=== PATIENT | female | born 1945 | race African-American/Black ===

== ENCOUNTER 2017-01-27 14:30 | Observation (INO) | payer MEDICARE, MEDICAID ==
--- NOTE | 2017-01-27 16:08 | HP ---
PRIMARY CARE PHYSICIAN: mAi Avelar M.D. REASON FOR ADMISSION: Nausea, vomiting, and gastric distention. HISTORY OF PRESENT ILLNESS: A 71-year-old female who went to [facility] with complaint of nausea and vomiting for the last 2 days. Her last bowel movement was yesterday. Patient was not ab le to keep anything down. She was feeling more abdominal pain in epigastric region. After food, her symptoms were getting worse. She was not trying to eat or drink because of fear of pain, nausea and vomiting. With these symptoms, she presented to [facility] where she had CT of the abdom en and pelvis which showed marked distention of stomach. The patient had routine blood tests done, w hich showed thrombocytopenia and patient clinically appeared dehydrated. Her urinalysis has also susanne wed urinary tract infection. This patient had similar type of presentation in our hospital. This pa tient already had upper endoscopy in 10/2016 which showed normal upper endoscopy. At that time, cassie ent had similar presentation and required NG tube for decompression of the stomach. At this point, w e are admitting this patient for further evaluation and treatment. ALLERGIES: No known drug allergies. CURRENT HOME MEDICATIONS: Colace 100 mg twice daily, Reglan 10 mg t.i.d. p.r.n., Protonix 40 mg p.o. daily, and MiraLax 17 grams p.o. daily. REVIEW OF SYSTEMS: The following complete review of systems was negative, unless otherwise mentioned in the HPI or below: Constitutional: Weight loss or gain, ability to conduct usual activities. Skin: Rash, itching. Eyes: Double vision, pain. ENT/Mouth: Nose bleeding, neck stiffness, pain, tenderness. Cardiovascular: Palpitations, dyspnea on exertion, orthopnea. Respiratory: Shortness of breath, wheezing, cough, hemoptysis, fever or night sweats. Gastrointestinal: Poor appetite, abdominal pain, heartburn, nausea, vomiting, constipation, or diarr hea. Genitourinary: Urgency, frequency, dysuria, nocturia. Musculoskeletal: Pain, swelling. Neurologic/Psychiatric: Anxiety, depression. Allergy/Immunologic: Skin rash, bleeding tendency. Please see my HPI for pertinent positive and negative. All other review of systems reviewed and nega tive except as mentioned in the HPI. PAST MEDICAL HISTORY: Scoliosis, gastroparesis, asthma. PAST SURGICAL HISTORY: Cholecystectomy and upper endoscopy. PAST PSYCHIATRIC HISTORY: The patient has underlying intellectual disability. SOCIAL HISTORY: Patient lives at home with her sister. No history of tobacco, alcohol or illicit dr ug abuse. Her sister is medical power of assistant attorney general. FAMILY HISTORY: No strong family history of premature coronary artery disease, stroke or cancer. EMERGENCY ROOM COURSE: Patient is given Rocephin 1 g, IV fluid 1 liter, and Zofran 4 mg at [facility]. PHYSICAL EXAMINATION: VITAL SIGNS: Currently, blood pressure 153/96, pulse 80, respiratory rate 18, temperature 98.5, satu ration 90% on room air, weight 40 kilograms. GENERAL: Patient is currently alert, awake, appears weak. No obvious acute distress. HEAD: Normocephalic, atraumatic. EYES: Pupils round and reactive to light. Extraocular muscle intact. ENT: Oropharynx within normal limits. Moist mucous membranes. No oral lesions. No pharyngeal eryt chelo, no exudates. NECK: Supple. Range of motion is normal. No meningeal signs of irritation. LUNGS: Clear to auscultation without any rhonchi or rales. CARDIAC: S1 and S2 regular. Systolic murmur present at parasternal area. No gallop, no rub. ABDOMEN: Patient does have mild epigastric discomfort, but no peritoneal sign, no Beckford sign, no gu arding, no rigidity, no rebound. No distention. Bowel sounds present. BACK: On examination, patient has severe kyphosis, but no point tenderness, no CVA tenderness. EXTREMITIES: Upper extremity passive movements of all joints are normal. Lower extremity, no edema. Good peripheral pulsation. SKIN: No skin rash. HEMATOLOGICAL SYSTEM: No lymphadenopathy. PSYCHIATRIC: Flat affect. IMAGING AND SIGNIFICANT LABORATORY DATA: 1. CT abdomen and pelvis done at [facility], which showing marked distention of the stoma ch, findings suspicious for internal hernia. 2. CBC: WBC 6.7, hemoglobin 13.6, and platelet 93. 3. BMP: Sodium 143, potassium 4.4, chloride 106, carbon dioxide 24, BUN 13, creatinine 0.77, glucos e 117, calcium 9.5, lactic acid 1.9. 4. LFT: AST 25, ALT 12, alkaline phosphatase 103, albumin 4.2. CK-MB 0.7, troponin I less than 0.0 10. Urinalysis suggestive of urinary tract infection. ASSESSMENT AND PLAN/IMPRESSION: 1. Acute gastric distention. This patient had upper endoscopy before and that was completely unrema rkable. At this point, most likely acute gastric distention is related with her gastroparesis. We w ill keep this patient n.p.o. tonight and we will continue to treat her with Reglan 5 mg IV q.4 hourly scheduled. We will start clear liquids tomorrow morning and we will also repeat x-ray of abdomen to millan. We will consult director organizational for evaluation. We will hydrate her with IV fluid and tr eat her symptomatically. 2. Gastroparesis, etiology uncertain, but patient has recurrent admission for similar problems with nausea and vomiting periodically. We will treat her with IV Reglan as scheduled and Protonix 40 mg I V daily. 3. Protein calorie malnutrition, moderate. Patient will be given nutritional support when patient a ble to tolerate p.o. 4. Thrombocytopenia. We will repeat CBC tomorrow. 5. Urinary tract infection. We will continue with Rocephin 1 gram q.24 hours and we will follow up on urine culture result. 6. Mental retardation. The patient does have an intellectual disability. 7. Deep venous thrombosis prophylaxis, sequential compression devices boots. 8. Gastrointestinal prophylaxis. Patient is already on Protonix therapy. 9. Code status: The patient is FULL CODE. Patient's sister is surrogate decision maker. Disposition plan based on clinical course. We are expecting patient's stay in hospital 24-48 hours. Upon improvement, we are advancing her diet.
[2017-01-27] MEDS ORDERED: Ondansetron HCl/PF 4 MG/2 ML Vial IVP PRN ×2 (17:41→17:46)
[2017-01-27] MEDS ORDERED: Ondansetron ODT 4 MG TAB SL PRN (17:41)
[2017-01-27] MEDS ORDERED: Sodium Chloride 0.9% 1,000 ML IV SCH (17:41)
[2017-01-27] MEDS ORDERED: Milk Of Magnesia 30 ML UDCUP PO PRN (17:46)
[2017-01-27] MEDS ORDERED: Chloraseptic Spray 180 ml Bottle PO PRN (17:46)
[2017-01-27] MEDS ORDERED: Diabetic Tussin 200 MG/10 ML UDCUP PO PRN (17:46)
[2017-01-27] MEDS ORDERED: Ondansetron ODT 4 MG TAB PO PRN (17:46)
[2017-01-27] MEDS ORDERED: hydrALAZINE 20 MG/ML VIAL SLOW IVP PRN (17:46)
[2017-01-27] MEDS ORDERED: Bisacodyl 10 MG SUPP PR PRN (17:46)
[2017-01-27] MEDS ORDERED: Acetaminophen 325 MG TAB PO PRN (17:46)
[2017-01-27] MEDS ORDERED: Eucerin (Mineral Oil/Petrolatum,White) 30 gm Jar TOP PRN (17:46)
[2017-01-27] MEDS ORDERED: Senokot 8.6 MG TAB PO PRN (17:46)
[2017-01-27] MEDS ORDERED: cefTRIAXone\\ROCEPHIN 1 GM in Sodium Chloride 0.9% 100 ML IVPB SCH (17:46)
[2017-01-27] MEDS ORDERED: Mag-Al 1200 mg/1200 mg/30 ML UDCUP PO PRN (17:46)
[2017-01-27] MEDS ORDERED: Sodium Chloride 0.65% Nasal 44 ML BOT EA NARE PRN (17:46)
[2017-01-27] MEDS ORDERED: Artificial Tears 18 DROP/0.9 ML EA EYE PRN (17:46)
[2017-01-27] MEDS ORDERED: Loperamide HCl 2 MG CAP PO PRN (17:46)
[2017-01-27] MEDS ORDERED: Zolpidem Tartrate 5 MG TAB PO PRN (17:46)
[2017-01-27 17:49] VITALS: BMI 17.3
[2017-01-27] MEDS: D5 0.9% NS w/ 20 mEq KCl 1,000 ML IV SCH (18:23)
[2017-01-27] MEDS: cefTRIAXone\\ROCEPHIN 1 GM, Syringe 0.4 ML in Sterile Water 9.6 ML SLOW IVP SCH (20:16)
[2017-01-27] MEDS: Pantoprazole 40 MG VIAL IVP SCH (20:23)
[2017-01-27] MEDS: Metoclopramide HCl 10 MG/2 ML VIAL IVP SCH (20:25)
[2017-01-28] MEDS: Metoclopramide HCl 10 MG/2 ML VIAL IVP SCH ×6 (01:03→21:17)
[2017-01-28] MEDS: D5 0.9% NS w/ 20 mEq KCl 1,000 ML IV SCH ×3 (01:55→16:56)
[2017-01-28 04:56] LABS: #Lymphocytes 1.7 thou/uL (1.20-3.40); #Monocytes 0.7 thou/uL (0.11-0.59); #Neutrophils 3.1 thou/uL (1.40-6.50); %Basophils 0.1 % (0.0-1.0); %Eosinophils 0.4 % (0.0-10.0); %Lymphocytes 30.4 % (21.0-51.0); %Monocytes 11.9 % (0.0-10.0); Hematocrit 34.9 % (36.0-47.0); Mean Platelet Volume 7.3 fL (7.4-10.4); White Blood Cell (WBC) Count 5.4 thou/uL (4.8-10.8)
[2017-01-28 05:16] LABS: ALT (SGPT) 9 U/L (8-55); AST (SGOT) 17 U/L (5-34); Alkaline Phosphatase 78 U/L (40-150); Anion Gap 8 mmol/L (10-20); BUN (Urea Nitrogen) 11 mg/dL (9.8-20.1); Bilirubin, Total 0.6 mg/dL (0.2-1.2); Calc. Creatinine Clearance 45 mL/min (70-130); Calcium 8.8 mg/dL (7.8-10.44); Carbon Dioxide 26 mmol/L (23-31); Chloride 113 mmol/L (98-107); Estimated GFR-MDRD Greater than 90; Globulin 3.1 g/dL (2.4-3.5); Protein, Total 6.5 g/dL (6.0-8.3)
--- NOTE | 2017-01-28 07:42 | RAD ---
ABDOMEN 1 VIEW: HISTORY: Abdominal pain. Gastric distention. COMPARISON: CT exam from 01/27/17. FINDINGS: Gas and stool are apparent throughout the colon. Stomach contains gas but is much less distended lissett n on the recent CT. Small bowel gas pattern is nonspecific. Vascular calcifications are metallic cl ips throughout the abdomen are stable. IMPRESSION: Interval decrease in gaseous distention of the stomach. No new abnormalities are demonstrated. POS: [facility]
[2017-01-28] MEDS: Pantoprazole 40 MG VIAL IVP SCH ×2 (09:04→21:19)
[2017-01-28] MEDS: Docusate 100 MG CAP PO SCH ×2 (09:08→21:15)
[2017-01-28] MEDS: Polyethylene Glycol 3350 17 GM Packet PO SCH (09:08)
--- NOTE | 2017-01-28 10:04 | PDOC.PN ---
- Subjective Encounter Start Date: 01/28/17 Encounter Start Time: 07:45 -: old records requested/rev no further nausea and vomiting, no abdominal pain Patient seen and examined. No overnight events - Objective Resuscitation Status: Resuscitation Status FULL:Full Resuscitation MAR Reviewed: Yes Vital Signs & Weight: Vital Signs (12 hours) Temp Pulse Resp BP BP Pulse Ox 01/28/17 08:35 97.3 F L 62 16 01/28/17 07:50 97.3 F L 62 16 124/58 L 92 L 01/28/17 02:55 98.8 F 66 18 113/54 L 97 01/27/17 23:12 99.8 F H 87 16 123/58 L 90 L I&O: 01/27/17 01/28/17 01/29/17 06:59 06:59 06:59 Intake Total 1484 125 Output Total 200 Balance 1284 125 Result Diagrams: 01/28/17 04:29 01/28/17 04:29 Radiology Reviewed by me: Yes (Xray abdomen- reduced gastric distension) Phys Exam - Physical Examination Constitutional: NAD HEENT: PERRLA, moist MMs, sclera anicteric Neck: no JVD, supple Respiratory: no wheezing, no rales, no rhonchi Cardiovascular: RRR, no significant murmur, no rub Gastrointestinal: soft, non-tender, no distention, positive bowel sounds Musculoskeletal: no edema, pulses present Neurological: moves all 4 limbs Lymphatic: no nodes Psychiatric: normal affect Skin: no rash, normal turgor Dx/Plan (1) Abdominal pain Code(s): R10.9 - UNSPECIFIED ABDOMINAL PAIN Status: Resolved Qualifiers: (2) Dehydration Code(s): E86.0 - DEHYDRATION Status: Resolved (3) Gastric distention Code(s): K31.89 - OTHER DISEASES OF STOMACH AND DUODENUM Status: Acute (4) Nausea & vomiting Code(s): R11.2 - NAUSEA WITH VOMITING, UNSPECIFIED Status: Acute Qualifiers: (5) UTI (urinary tract infection) Status: Acute (6) Constipation Code(s): K59.00 - CONSTIPATION, UNSPECIFIED Status: Chronic (7) Gastroparesis Code(s): K31.84 - GASTROPARESIS Status: Chronic (8) Intellectual disability Code(s): F79 - UNSPECIFIED INTELLECTUAL DISABILITIES Status: Chronic (9) Physical deconditioning Code(s): R53.81 - OTHER MALAISE Status: Chronic (10) Protein-calorie malnutrition, moderate Code(s): E44.0 - MODERATE PROTEIN-CALORIE MALNUTRITION Status: Chronic (11) Scoliosis Status: Chronic - Plan cont current plan of care, plan discussed w/ family, continue antibiotics * today will start only clear liquid diet * if tolerates well, then will advance to full liquid diet * medication reviewed as below * symptomatic treatment * selected home medication reconciled * based on her condition, will decide if she can be discharged tomorrow * continue iv reglan and ivf. * continue rocephin for UTI Review of Systems - Review of Systems Constitutional: negative: Fever, Chills, Sweats, Weakness, Malaise, Other Eyes: negative: Pain, Vision Change, Conjunctivae Inflammation, Eyelid Inflammation, Redness, Other ENT: negative: Ear Pain, Ear Discharge, Nose Pain, Nose Discharge, Nose Congestion, Mouth Pain, Mouth Swelling, Throat Pain, Throat Swelling, Other Respiratory: negative: Cough, Dry, Shortness of Breath, Hemoptysis, SOB with Excertion, Pleuritic Pain, Sputum, Wheezing Cardiovascular: negative: Chest Pain, Palpitations, Orthopnea, Paroxysmal Noc. Dyspnea, Edema, Light Headedness, Other Gastrointestinal: Nausea Genitourinary: negative: Dysuria, Frequency, Incontinence, Hematuria, Retention , Other Musculoskeletal: negative: Neck Pain, Shoulder Pain, Arm Pain, Back Pain, Hand Pain, Leg Pain, Foot Pain, Other Skin: negative: Rash, Lesions, Jonas, Bruising, Other - Medications/Allergies Allergies/Adverse Reactions: Allergies Allergy/AdvReac Type Severity Reaction Status Date / Time No Known Allergies Allergy Verified 10/09/16 19:48 Medications: Current Medications Acetaminophen (Tylenol) 650 mg PO Q4H PRN PRN Reason: Headache/Fever or Pain Al Hydroxide/Mg Hydroxide (Maalox) 30 ml PO Q6H PRN PRN Reason: Heartburn or Indigestion Artificial Tears (Tears Naturale) 0 drop EA EYE PRN PRN PRN Reason: Dry Eyes Atorvastatin Calcium (Lipitor) 20 mg PO HS SETH Bisacodyl (Dulcolax) 10 mg CA Q24H PRN PRN Reason: Constipation Docusate Sodium (Colace) 100 mg PO BID [facility] Last Admin: 01/28/17 09:08 Dose: Not Given Guaifenesin (Robitussin Sf) 200 mg PO Q4H PRN PRN Reason: Cough Hydralazine HCl (Apresoline) 10 mg SLOW IVP Q4H PRN PRN Reason: Systolic BP > 180 Potassium Chloride/Dextrose/Sod Cl (D5 0.9% Ns W/ 20 Meq Kcl) 1,000 mls @ 125 mls/hr IV .Q8H [facility] Last Admin: 01/28/17 09:09 Dose: Not Given Ceftriaxone Sodium 1 gm/ (Syringe 0.4 ml/ Sterile Water) 10 mls @ 120 mls/hr SLOW IVP 2000 [facility] Last Admin: 01/27/17 20:16 Dose: 10 mls Loperamide HCl (Imodium) 2 mg PO PRN PRN PRN Reason: Diarrhea/Loose Stools Magnesium Hydroxide (Milk Of Magnesium) 30 ml PO DAILYPRN PRN PRN Reason: Constipation Metoclopramide HCl (Reglan) 5 mg IVP Q4HR [facility] Last Admin: 01/28/17 09:07 Dose: 5 mg Mineral Oil/White Petrolatum (Eucerin Cream) 0 gm TOP BIDPRN PRN PRN Reason: Dry Skin Ondansetron HCl (Zofran Odt) 4 mg PO Q6H PRN PRN Reason: Nausea/Vomiting Ondansetron HCl (Zofran) 4 mg IVP Q6H PRN PRN Reason: Nausea/Vomiting Pantoprazole Sodium (Protonix) 40 mg IVP Q12HR [facility] Last Admin: 01/28/17 09:04 Dose: 40 mg Phenol (Chloraseptic [place] 180 Ml Bot) 0 ml PO PRN PRN PRN Reason: Sore Throat Polyethylene Glycol (Miralax) 17 gm PO DAILY [facility] Last Admin: 01/28/17 09:08 Dose: Not Given Senna (Senokot) 2 tab PO HSPRN PRN PRN Reason: Constipation Sodium Chloride ([place] Nasal [place] 0.65%) 0 ml EA NARE QIDPRN PRN PRN Reason: Nasal Congestion Sodium Chloride (Flush - Normal Saline) 10 ml IVF Q12HR [facility] Last Admin: 01/28/17 09:04 Dose: 10 ml Sodium Chloride (Flush - Normal Saline) 10 ml IVF PRN PRN PRN Reason: Saline Flush Zolpidem Tartrate (Ambien) 5 mg PO HSPRN PRN PRN Reason: Insomnia
[2017-01-28] MEDS ORDERED: Atorvastatin Calcium 20 MG TAB PO SCH (21:00)
[2017-01-28] MEDS: cefTRIAXone\\ROCEPHIN 1 GM, Syringe 0.4 ML in Sterile Water 9.6 ML SLOW IVP SCH (21:12)
[2017-01-28] MEDS ORDERED: Polyethylene Glycol 3350 17 GM Packet PO SCH (21:45)
[2017-01-29] MEDS: Metoclopramide HCl 10 MG/2 ML VIAL IVP SCH ×4 (03:05→14:53)
[2017-01-29] MEDS: D5 0.9% NS w/ 20 mEq KCl 1,000 ML IV SCH ×2 (04:02→14:52)
[2017-01-29] MEDS: Docusate 100 MG CAP PO SCH (08:59)
[2017-01-29] MEDS: Polyethylene Glycol 3350 17 GM Packet PO SCH (08:59)
[2017-01-29] MEDS: Pantoprazole 40 MG VIAL IVP SCH (09:03)
[2017-01-29 12:12] VITALS: BP 130/60; TEMP 98.7
--- NOTE | 2017-01-29 22:25 | DIS ---
DATE OF ADMISSION: 01/27/2017 DATE OF DISCHARGE: 01/29/2017 DIAGNOSES AT THE TIME OF DISCHARGE: 1. Abdominal pain, resolved, most likely related to urinary tract infection. 2. Dehydration, resolved. 3. Gastric distention, improved. 4. Urinary tract infection with Escherichia coli, pansensitive, on antibiotic. 5. Gastroparesis, on metoclopramide, no more nausea or vomiting, tolerating food without any problem s. 6. Scoliosis, chronic. IMAGES: 1. CT of the abdomen and pelvis showed marked distention of stomach with findings suspicious of inte rnal hernia such as paraduodenal hernia producing gastric obstruction. 2. Mild free pelvic fluid. 3. X-ray of the abdomen done the day after showed interval decrease in gaseous distention of the sto mach. Small bowel gas pattern was nonspecific. Vascular calcifications, metallic clips throughout t he abdomen were stable; and gas and stool were apparent throughout the colon. HOSPITAL COURSE: The patient is a 71-year-old -Turk[place] female who went to [facility] with complaints of nausea and vomiting for the last couple of days. She had a bowel movement one day prior to this hospitalization. She had some abdominal pain in the epigastric region which was w orse after she ate some food. The CT of the abdomen in the emergency room showed marked distention o f stomach. A blood work was done which showed some thrombocytopenia and clinically she appeared dehy drated. Her urinalysis showed urinary tract infection. The patient had upper endoscopy in 10/2016 w [facility] showed normal upper endoscopy. The patient was admitted with similar presentation at this time and required NG tube for decompression of the stomach. At the time of this admission, her CBC was 6. 7, hemoglobin was 13.6. BNP was within normal limits. Lactic acid was 1.9. Normal LFTs. Urinalysi s showed urinary tract infection. She was placed on Reglan 5 mg IV push every 4 scheduled and Roceph in 1 gram every 24 hours for UTI. She spent 2 days in the hospital. Her condition gradually improve d and she is able to eat regular food without any problems. Her urine culture came back positive for E. coli which was pansensitive. Her followup chest x-ray of the abdomen showed significant improvem ent of her gaseous distention of the stomach. Clinically, she looks so much better to the point that she can be discharged home. According to the CT results from the [facility], there was s ome suspicion for possible internal hernia, but as soon as function of the GI tract is back to normal , there is no need for any operation at this point. If this comes back again most likely surgeon jeni duenas have to take a look at her for possible intervention. Today, she ate regular food without any prob lems. She is discharged home in good condition with recommendation to stay on regular diet. ACTIVITIES: As tolerated and she will follow up with Dr. Price in 1 week. MEDICATIONS AT THE TIME OF DISCHARGE: Cipro 250 mg twice a day for the next 5 days, pioglitazone 45 mg once a day, pantoprazole 40 mg once a daily, multivitamin 1 a day, metoclopramide 10 mg a.c. and a t bedtime, losartan/hydrochlorothiazide 1 tablet once a day, glipizide 2.5 mg/metformin 500 mg 1 tabl et once a day and Cipro as mentioned above 250 mg twice a day. She will follow up with Dr. Price in 1 week and she is evaluated before she is discharged and the discharge time was less than 30 minutes.
== END 2017-01-29 18:01 | disposition home or self-care (01) ==
LOC: ERS 14:30 → 2SW 17:44
PROVIDERS: ADMIT Internal Medicine; ATTEND Internal Medicine
DX: K31.84 Gastroparesis (principal); E86.0 Dehydration; J45.909 Unspecified asthma, uncomplicated; M41.80 Other forms of scoliosis, site unspecified; F79 Unspecified intellectual disabilities; N39.0 Urinary tract infection, site not specified; B96.20 Unspecified Escherichia coli [E. coli] as the cause of diseases classified elsewhere; Z16.20 Resistance to unspecified antibiotic; Z79.899 Other long term (current) drug therapy; Z90.49 Acquired absence of other specified parts of digestive tract
CPT/HCPCS: 74000; 80053; 85025; 96361 ×3; 96374; 96375; 96376 ×2; 99285; G0378; 36415; A4216; C9113; J0696; J2765

== ENCOUNTER 2017-09-22 12:33 | Inpatient (IN) | payer MEDICARE, MEDICAID ==
[2017-09-22] MEDS ORDERED: Albuterol Sulfate 2.5 mg/0.5 ml Neb ONE (13:56)
[2017-09-22] MEDS ORDERED: Albuterol Sulfate 2.5 mg/3 ml Neb ONE (13:56)
[2017-09-22] MEDS ORDERED: cefTRIAXone\\ROCEPHIN 2 GM VIAL ONE (14:01)
[2017-09-22] MEDS ORDERED: Magnesium Sulfate 2 GM/100 ML BAG ONE (14:01)
[2017-09-22] MEDS ORDERED: Azithromycin 500 MG VIAL ONE (14:03)
--- NOTE | 2017-09-22 14:48 | RAD ---
PORTABLE CHEST: Date: 09/22/17 PROVIDED CLINICAL HISTORY: Dyspnea. FINDINGS: Comparison made with the examination performed earlier same date. Significant interval change with respect to the prior examination is not apparent. IMPRESSION: As above. POS: [facility]
[2017-09-22 14:56] LABS: Bicarbonate (HCO3v) 23.7 mmol/L (1.0-85.0); CO2 Tension (PvCO2) 52.2 mmHg (41.0-51.0); Calcium, Ionized 1.14 mmol/L (1.12-1.32); Hemoglobin - Calc 14.7 g/dL (12.0-18.0); O2 Tension (PvO2) 90.6 mmHg (35.0-45.0); Potassium 3.1 mmol/L (3.4-4.7); T. Carbon Dioxide 25.3 mmol/L (1.0-85.0); pH (Venous) 7.264 (7.35-7.45); vO2 Saturation-calc 95.5 % (94-98)
[2017-09-22 15:22] LABS: Troponin I Less than 0.010 ng/mL (< 0.028)
--- NOTE | 2017-09-22 16:59 | HP ---
PRIMARY CARE PHYSICIAN: Dr. Avelar. REASON FOR ADMISSION: Acute asthmatic bronchitis, transferred from [facility]. HISTORY OF PRESENT ILLNESS: A 72-year-old -[place] female who has bad scoliosis as well as u nderlying history of gastroparesis who went to [facility] earlier today with increasing sh ortness of breath. Patient reports that symptoms started initially with upper respiratory infection. She was having a runny nose and sore throat. Subsequently, she started having cough productive of scant amount of sputum. She was also wheezing. Her wheezing was getting worse during night time. H er condition day by day gotten worse and today she was not able to talk. She was not able to breathe and she was wheezing all over her chest and she was complaining more and more dyspnea and that is wh y she was evaluated at [facility]. At [facility], patient was tachypneic, tachycardic. She was saturating normal. She was t reated with DuoNeb, albuterol nebulization, IV fluid, and Solu-Medrol and subsequently she was sent t o our emergency room for evaluation. In our emergency room, patient was having low grade fever. She was tachycardic, tachypneic. Her whe ezing was heard from distance. The patient was in respiratory distress. She was tried with BiPAP, b ut she did not tolerate well and that is why she kept on facemask. Patient's family member present at bedside and I spoke with them about code status and the patient. Does not want to be intubated. She does not want to be done CPR as well in case of cardiopulmonary a rrest. At this point, patient is still tachypneic, tachycardic, and she has mild to moderate respira tory distress and that is why we are admitting this patient in IMCU for close monitoring. REVIEW OF SYSTEMS: The following complete review of systems was negative, unless otherwise mentioned in the HPI or below: Constitutional: Weight loss or gain, ability to conduct usual activities. Skin: Rash, itching. Eyes: Double vision, pain. ENT/Mouth: Nose bleeding, neck stiffness, pain, tenderness. Cardiovascular: Palpitations, dyspnea on exertion, orthopnea. Respiratory: Shortness of breath, wheezing, cough, hemoptysis, fever or night sweats. Gastrointestinal: Poor appetite, abdominal pain, heartburn, nausea, vomiting, constipation, or diarr hea. Genitourinary: Urgency, frequency, dysuria, nocturia. Musculoskeletal: Pain, swelling. Neurologic/Psychiatric: Anxiety, depression. Allergy/Immunologic: Skin rash, bleeding tendency. Please see my HPI for pertinent positive and negative. All other review of systems reviewed and nega tive except as mentioned in the HPI. ALLERGIES: No known drug allergy. CURRENT HOME MEDICATIONS: Colace 100 mg twice daily, Reglan 10 mg t.i.d. p.r.n., Protonix 40 mg p.o. daily and MiraLax 17 grams p.o. daily. PAST MEDICAL HISTORY: Severe scoliosis, gastroparesis, asthma. PAST SURGICAL HISTORY: Cholecystectomy, upper endoscopy. PAST PSYCHIATRIC HISTORY: Patient does have baseline mild to moderate intellectual disability. SOCIAL HISTORY: Patient lives at home with her sister. No history of tobacco, alcohol or illicit dr ug abuse. Her sister is medical power of assistant prosecuting attorney and she and herself decided DO NOT RESUSCITATE for her today. FAMILY HISTORY: No strong family history of premature coronary artery disease, stroke or cancer. EMERGENCY ROOM COURSE: At [facility], patient was given DuoNeb therapy, albuterol nebuliz ation, IV fluid, and Solu-Medrol 125 mg. In our emergency room, patient has received magnesium sulfat e 2 grams IV, Rocephin and azithromycin as well as another round of DuoNeb therapy. PHYSICAL EXAMINATION: VITAL SIGNS: Currently, blood pressure 136/107, pulse 122, respiratory rate 28, saturation 99% on fa cemask, temperature 99.1, weight 45.3 kilograms. GENERAL: The patient is currently in respiratory distress with tachypneic, tachycardic. HEAD: Normocephalic, atraumatic. EYES: Pupils round, reactive to light. Extraocular muscle intact. ENT: Oropharynx within normal limits. Moist mucous membranes. No oral lesion, no pharyngeal erythe ma, no exudate. NECK: Supple, no JVD, no thyromegaly, no carotid bruit. LUNGS: Bilateral wheezing and rhonchi heard. Retraction present. Increase accessory muscles of res piration in use. Wheezing heard from distance. The patient appears in mild to moderate respiratory distress. CARDIAC: S1, S2 regular, tachycardia, no murmur, no gallop, no rub. ABDOMEN: Soft, bowel sounds present, nontender, nondistended. No organomegaly, no mass, no suprapub ic tenderness. BACK: Examination unremarkable, no CVA tenderness. EXTREMITIES: Upper extremity passive movements of all joints are normal. Lower extremities: No mark ma. Good peripheral pulsation, no calf tenderness. SKIN: No skin rash. HEMATOLOGICAL SYSTEM: No lymphadenopathy. PSYCHIATRIC: Normal affect. NEUROLOGIC: She is able to move all 4 limbs. Grossly nonfocal neurological examination. IMAGING DATA AND SIGNIFICANT LABORATORY DATA: EKG showing sinus tachycardia, slightly prolonged QTC interval, nonspecific ST-T changes. Chest x-ray based on my review, no acute cardiopulmonary process . CBC: WBC 9.8, hemoglobin 13.7, platelet 220. VBG: pH 7.26, CO2 52.2, O2 19.6, bicarbonate 23.7. BMP: Sodium 139, potassium 3.7, chloride 101, carbon dioxide 25, BUN 13, creatinine 0.84, glucose 193, calcium 10.1, lactic acid 2.5 and then increased to 4.0. LFT: AST 31, ALT 25, alkaline phospha tase 109, albumin 4.5. BNP 47.9, CK-MB 2.2, troponin I less than 0.010. ASSESSMENT AND PLAN/IMPRESSION: 1. Acute asthmatic bronchitis. The patient has mild to moderate respiratory distress. She has acce ssory muscles of respiration in use. She has underlying bad scoliosis. She is tachycardic and tachy pneic. She also had lactic acidosis as well as CO2 retention. She will need admission in IMCU. I s poke with Dr. Kevin and notified about this patient, though patient did not tolerate BiPAP in the e mergency room, but we will try again if needed. This patient is DNR and that is why she does not wan t any kind of intubation to be done that was confirmed with her sister today in the emergency room. We will treat her with Solu-Medrol 40 mg IV q.6 hourly, Pulmicort nebulization twice daily, Singulair 10 mg p.o. daily, empiric antibiotic therapy with Rocephin 1 gram IV daily and azithromycin 500 mg I V daily. We will monitor with a dry roller. Pulmonary will be consulted as well. 2. Severe scoliosis and the patient is currently with acute exacerbation of asthma. She will requir e a little bit longer time to recover from this condition most likely current asthma specified by rec ent upper respiratory infection. 3. Gastroparesis. We will continue with Reglan 10 mg IV q.8 hourly while in hospital and Protonix 4 0 mg IV daily. 4. Diabetes type 2. We will continue with insulin as per sliding scale protocol. Diabetic diet jeni l be given. 5. Gastroesophageal reflux disease. We will continue Protonix 40 mg IV daily. 6. Deep venous thrombosis prophylaxis, Lovenox 30 mg subcutaneously daily. 7. Gastrointestinal prophylaxis, Protonix 40 mg IV daily. 8. Protein calorie malnutrition, mild to moderate. We will continue nutritional supplement while in hospital. 9. Code status: The patient is DNR. Patient's sister is surrogate decision maker. Disposition plan based on clinical course. We are expecting patient's stay in hospital more than 2 m idnights. Plan of care discussed with the patient and family member at bedside in the emergency room .
[2017-09-22] MEDS ORDERED: Bisacodyl 10 MG SUPP PR PRN (17:26)
[2017-09-22] MEDS ORDERED: Senokot 8.6 MG TAB PO PRN (17:26)
[2017-09-22] MEDS ORDERED: Artificial Tears 18 DROP/0.9 ML EA EYE PRN (17:26)
[2017-09-22] MEDS ORDERED: Loratadine 10 MG TAB PO PRN (17:26)
[2017-09-22] MEDS ORDERED: Sodium Chloride 0.65% Nasal 44 ML BOT EA NARE PRN (17:26)
[2017-09-22] MEDS ORDERED: Eucerin (Mineral Oil/Petrolatum,White) 30 gm Jar TOP PRN (17:26)
[2017-09-22] MEDS ORDERED: Loperamide HCl 2 MG CAP PO PRN (17:26)
[2017-09-22] MEDS ORDERED: Dextrose 50% Abboject 50 ML SYRINGE SLOW IVP PRN (17:26)
[2017-09-22] MEDS ORDERED: Milk Of Magnesia 30 ML UDCUP PO PRN (17:26)
[2017-09-22] MEDS ORDERED: Mag-Al 1200 mg/1200 mg/30 ML UDCUP PO PRN (17:26)
[2017-09-22] MEDS ORDERED: Dextrose 5% in Water 1,000 ML IV PRN (17:26)
[2017-09-22] MEDS ORDERED: cloNIDine 0.1 MG TAB PO PRN (17:26)
[2017-09-22] MEDS ORDERED: Chloraseptic Spray 180 ml Bottle PO PRN (17:26)
--- NOTE | 2017-09-22 17:47 | CON ---
DATE OF CONSULTATION: 09/22/2017 CONSULTING PHYSICIAN: Dr. Cruz. REASON FOR CONSULTATION: Asthma exacerbation. HISTORY OF PRESENT ILLNESS: Ms. Camp is a pleasant 72-year-old female who became ill about 4 days a go. She is just presenting to the hospital today. She has had increasing shortness of breath and wh eezing. She tells me she does have a history of asthma from the past, but generally has not bothered her. She was tried on BiPAP briefly in the emergency room, but did not like it, and was subsequentl y placed on a Ventimask. At the time I am interviewing her, the Ventimask is lying on the side of e bed and she is satting about 97% on room air. She is clearly dyspneic at rest, but it should be no shira that she has profound kyphoscoliosis. PAST MEDICAL HISTORY: 1. Asthma. 2. Kyphoscoliosis. 3. Gastroparesis. PAST SURGICAL HISTORY: 1. Cholecystectomy. 2. Upper endoscopy. SOCIAL HISTORY: Nonsmoker, does not consume alcohol. Lives with her sister and brother. FAMILY MEDICAL HISTORY: Unremarkable. REVIEW OF SYSTEMS: Ten point review of systems otherwise negative. PHYSICAL EXAMINATION: VITAL SIGNS: Pulse 97, respirations 18, O2 sat 97% on room air, blood pressure 120/80. GENERAL: She is awake and alert. She has some audible wheezing. HEENT: Unremarkable. NECK: No adenopathy, no JVD. LUNGS: She has extreme tortuous spine with profound kyphoscoliosis in the pectus excavatum. Her janessa ath sounds are globally diminished bilaterally and she has wheezing up towards her trachea. ABDOMEN: Soft and nontender. HEART: Sounds are muffled, but there is no audible murmur. EXTREMITIES: Show significant muscle wasting without cyanosis or edema. IMAGING: Chest x-ray shows the kyphoscoliosis. Her heart is turned. It is difficult to tell if the re is an infiltrate or not. LABORATORY DATA: PH 7.26, pCO2 52, pO2 90. White blood cell count 9.8, hematocrit 44.2, platelet co unt 220. Sodium 145, potassium 4.8, chloride 109, CO2 of 25, BUN 13, creatinine 0.8, glucose 193, tr oponin less than 0.01. BNP 47.9. ASSESSMENT: 1. Acute on chronic respiratory failure. 2. Asthma with exacerbation. 3. Question of underlying pneumonia. RECOMMENDATIONS: The patient apparently has a DNR order, according to Dr. Cruz. She does not wan t BiPAP. Dr. Cruz feels like she may change her mind about the BiPAP later and wants to have her in the IMCU so that the BiPAP is an option if she changes her mind. I have reviewed his orders. Agr ee with the nebulization treatments on a q.4 h. basis. I agree with the steroids and the broad-spect rum IV antibiotics. She will be monitored closely to see how she does.
[2017-09-22 18:24] LABS: Troponin I Less than 0.010 ng/mL (< 0.028)
[2017-09-22] MEDS: Metoclopramide HCl 10 MG/2 ML VIAL IVP SCH (18:24)
[2017-09-22] MEDS: Budesonide 0.5 MG/2 ML NEB INH SCH (18:48)
[2017-09-22] MEDS: Montelukast Sodium 10 mg Tablet PO SCH (20:15)
[2017-09-22] MEDS: Docusate 100 MG CAP PO SCH (20:15)
[2017-09-23] MEDS: Metoclopramide HCl 10 MG/2 ML VIAL IVP SCH ×4 (00:31→23:32)
[2017-09-23] MEDS: Acetaminophen 325 MG TAB PO PRN (03:27)
[2017-09-23 04:07] LABS: #Eosinphils 0.1 thou/uL (0.0-0.7); #Lymphocytes 0.9 thou/uL (1.20-3.40); #Monocytes 0.1 thou/uL (0.11-0.59); #Neutrophils 10.5 thou/uL (1.40-6.50); %Eosinophils 0.6 % (0.0-10.0); %Lymphocytes 7.8 % (21.0-51.0); %Monocytes 1.2 % (0.0-10.0); %Neutrophils 90.4 % (42.0-75.0); Hemoglobin 12.9 g/dL (12.0-16.0); Mean Corpuscular HGB CONC 31.9 g/dL (32.0-36.0); Mean Corpuscular Hemoglobin 31.3 pg (27.0-31.0); Mean Corpuscular Volume 98.2 fL (78.0-98.0); Mean Platelet Volume 7.3 fL (7.4-10.4); Platelet Count 211 thou/uL (130-400); RBC Distribution Width 11.3 % (11.5-14.5); Red Blood Cell (RBC) Count 4.11 mill/uL (4.20-5.40); White Blood Cell (WBC) Count 11.6 thou/uL (4.8-10.8)
[2017-09-23 04:27] LABS: ALT (SGPT) 23 U/L (8-55); AST (SGOT) 27 U/L (5-34); Albumin 4.7 g/dL (3.4-4.8); Alkaline Phosphatase 111 U/L (40-150); Anion Gap 18 mmol/L (10-20); BUN (Urea Nitrogen) 13 mg/dL (9.8-20.1); Bilirubin, Total 0.5 mg/dL (0.2-1.2); Calc. Creatinine Clearance 45 mL/min (70-130); Calcium 10.4 mg/dL (7.8-10.44); Carbon Dioxide 22 mmol/L (23-31); Chloride 106 mmol/L (98-107); Estimated GFR-MDRD 84; Globulin 4.4 g/dL (2.4-3.5); Glucose 180 mg/dL (83-110); Potassium 4.2 mmol/L (3.5-5.1); Protein, Total 9.1 g/dL (6.0-8.3); Sodium 142 mmol/L (136-145)
[2017-09-23] MEDS: HumaLOG 300 UNITS/3 ML VIAL SC PRN (06:06)
[2017-09-23] MEDS: Budesonide 0.5 MG/2 ML NEB INH SCH ×2 (08:09→19:07)
--- NOTE | 2017-09-23 08:37 | PRG ---
DATE OF SERVICE: 09/23/2017 SUBJECTIVE: The patient says she feels a little better compared to yesterday. PHYSICAL EXAMINATION: VITAL SIGNS: Temperature is 98.1, pulse 90, respiration 24, sat 98% on room air. Total intake for 2 4 hours 500, output not quantitated. HEENT: Unremarkable. NECK: Coarse tracheal breath sounds. LUNGS: Upper airway noises radiating to both lung licea. CARDIAC: S1 and S2 regular. ABDOMEN: Soft, nontender. EXTREMITIES: No edema. LABORATORY DATA: Sodium 142, potassium 4.2, chloride 106, CO2 22, BUN 13, creatinine 0.8, glucose 18 0, white blood cell count 11.6, hematocrit 40, platelet count 211. ASSESSMENT: 1. Tracheobronchitis. 2. Asthma with exacerbation. PLAN: Continue steroids, nebulization treatments and antibiotics. Assuming she is not using BiPAP s he could be transferred out to the floor.
[2017-09-23] MEDS: Enoxaparin Sodium 30 MG/0.3 ML SYRINGE SC SCH (08:56)
[2017-09-23] MEDS: Docusate 100 MG CAP PO SCH ×2 (08:56→20:13)
[2017-09-23] MEDS: Saccharomyces boulardii 250 MG CAP PO SCH (08:56)
[2017-09-23] MEDS ORDERED: Pantoprazole 40 MG VIAL IVP SCH (09:00)
[2017-09-23] MEDS ORDERED: Prevnar 13-Val Conj/PF 0.5 ML SYRINGE IM ONE (09:00)
[2017-09-23] MEDS: cloNIDine 0.1 MG TAB PO PRN (11:08)
--- NOTE | 2017-09-23 11:31 | PDOC.PN ---
- Subjective Encounter Start Date: 09/23/17 Encounter Start Time: 10:20 -: old records requested/rev pt is not tolerating bipap, she does not want to use it, now has less wheezing, - Objective Resuscitation Status: Resuscitation Status DNR:Do Not Resuscitate MAR Reviewed: Yes Vital Signs & Weight: Vital Signs (12 hours) Temp Pulse Resp BP BP Pulse Ox 09/23/17 11:20 98.6 F 100 23 H 190/76 H 98 09/23/17 11:08 190/76 H 09/23/17 08:11 98 09/23/17 08:09 90 24 H 98 09/23/17 08:08 90 24 H 98 09/23/17 07:41 98.1 F 83 18 171/92 H 97 09/23/17 04:00 97.1 F L 108 H 25 H 153/77 H 96 09/23/17 02:31 106 H 16 99 09/23/17 02:04 106 H 20 138/69 98 09/22/17 23:43 97.6 F 112 H 23 H 144/84 H 99 Weight Weight 99 lb 3.328 oz I&O: 09/22/17 09/23/17 09/24/17 06:59 06:59 06:59 Intake Total 500 Balance 500 Result Diagrams: 09/23/17 03:30 09/23/17 03:30 Additional Labs: Accuchecks 09/23/17 09/22/17 05:52 20:00 POC Glucose 172 H 223 H EKG Reviewed by me: Yes (nsr) Phys Exam - Physical Examination Constitutional: NAD HEENT: PERRLA, moist MMs, sclera anicteric Neck: no JVD, supple Respiratory: no rales, wheezing present scoliosis Cardiovascular: RRR, no significant murmur, no rub Gastrointestinal: soft, non-tender, no distention, positive bowel sounds Musculoskeletal: no edema, pulses present Neurological: non-focal, normal sensation, moves all 4 limbs Lymphatic: no nodes Psychiatric: normal affect Skin: no rash, normal turgor Dx/Plan (1) Acute asthmatic bronchitis Code(s): J45.909 - UNSPECIFIED ASTHMA, UNCOMPLICATED Status: Acute (2) Acute respiratory failure with hypoxia Code(s): J96.01 - ACUTE RESPIRATORY FAILURE WITH HYPOXIA Status: Resolved (3) Hyperglycemia, drug-induced Code(s): R73.9 - HYPERGLYCEMIA, UNSPECIFIED; T50.905A - ADVERSE EFFECT OF UNSP DRUG/MEDS/BIOL SUBST, INIT Status: Acute (4) Gastroparesis Code(s): K31.84 - GASTROPARESIS Status: Chronic (5) Intellectual disability Code(s): F79 - UNSPECIFIED INTELLECTUAL DISABILITIES Status: Chronic (6) Physical deconditioning Code(s): R53.81 - OTHER MALAISE Status: Chronic (7) Protein-calorie malnutrition, moderate Code(s): E44.0 - MODERATE PROTEIN-CALORIE MALNUTRITION Status: Chronic (8) Scoliosis Status: Chronic - Plan cont current plan of care, continue antibiotics, respiratory therapy * transfer to medical * start clonidine as needed for hypertension * because of steroid, her blood sugar and BP is high, will monitor and adjust meds * continue duoneb, pulmicort, solumderol, sigulair, empiric antibiotics * she has clinical improvement * medication reviewed as below * symptomatic treatment. * add amlodipine and will monitor Review of Systems - Review of Systems Constitutional: negative: fever, chills, sweats, weakness, malaise, other Eyes: negative: Pain, Vision Change, Conjunctivae Inflammation, Eyelid Inflammation, Redness, Other ENT: negative: Ear Pain, Ear Discharge, Nose Pain, Nose Discharge, Nose Congestion, Mouth Pain, Mouth Swelling, Throat Pain, Throat Swelling, Other Respiratory: Cough, Shortness of Breath, Wheezing. negative: Dry, Hemoptysis, SOB with Excertion, Pleuritic Pain, Sputum Cardiovascular: negative: chest pain, palpitations, orthopnea, paroxysmal nocturnal dyspnea, edema, light headedness, other Gastrointestinal: negative: Nausea, Vomiting, Abdominal Pain, Diarrhea, Constipation, Melena, Hematochezia, Other Genitourinary: negative: Dysuria, Frequency, Incontinence, Hematuria, Retention , Other Musculoskeletal: negative: Neck Pain, Shoulder Pain, Arm Pain, Back Pain, Hand Pain, Leg Pain, Foot Pain, Other Skin: negative: Rash, Lesions, Jonas, Bruising, Other - Medications/Allergies Allergies/Adverse Reactions: Allergies Allergy/AdvReac Type Severity Reaction Status Date / Time No Known Allergies Allergy Verified 09/22/17 17:27 Medications: Current Medications Acetaminophen (Tylenol) 650 mg PO Q4H PRN PRN Reason: Headache/Fever or Pain Last Admin: 09/23/17 03:27 Dose: 650 mg Al Hydroxide/Mg Hydroxide (Maalox) 30 ml PO Q6H PRN PRN Reason: Heartburn or Indigestion Albuterol/Ipratropium (Duoneb) 3 ml NEB [id number] [facility] Last Admin: 09/23/17 08:08 Dose: 3 ml Albuterol/Ipratropium (Duoneb) 3 ml NEB [id number] PRN PRN Reason: SOB &/or Wheezing Artificial Tears (Tears Naturale) 0 drop EA EYE PRN PRN PRN Reason: Dry Eyes Bisacodyl (Dulcolax) 10 mg OR Q24H PRN PRN Reason: Constipation Budesonide (Pulmicort Neb Solution) 0.5 mg INH BID-RT [facility] Last Admin: 09/23/17 08:09 Dose: 0.5 mg Clonidine (Catapres) 0.1 mg PO Q4H PRN PRN Reason: Systolic BP > 180 Last Admin: 09/23/17 11:08 Dose: 0.1 mg Dextrose/Water (Dextrose 50%) 25 gm SLOW IVP PRN PRN PRN Reason: Hypoglycemia Docusate Sodium (Colace) 100 mg PO BID [facility] Last Admin: 09/23/17 08:56 Dose: 100 mg Enoxaparin Sodium (Lovenox) 30 mg SC 0900 [facility] Last Admin: 09/23/17 08:56 Dose: 30 mg Glucagon (Glucagon) 1 mg IM PRN PRN PRN Reason: Hypoglycemia Guaifenesin (Robitussin Sf) 200 mg PO Q4H PRN PRN Reason: Cough Azithromycin 500 mg/ Sodium (Chloride) 250 mls @ 250 mls/hr IVPB 1500 [facility] Ceftriaxone Sodium 1 gm/ (Sodium Chloride) 100 mls @ 200 mls/hr IVPB 1400 [facility] Dextrose/Water (D5w) 1,000 mls @ 0 mls/hr IV .Q0M PRN; As Directed PRN Reason: Hypoglycemia Insulin Human Lispro (Humalog) 0 units SC .MODERATE SLIDING SC PRN PRN Reason: Moderate Correctional Scale Last Admin: 09/23/17 06:06 Dose: 2 unit Insulin Human Lispro (Humalog) 0 units SC .BEDTIME SLIDING SC PRN PRN Reason: Bedtime Correctional Scale Loperamide HCl (Imodium) 2 mg PO PRN PRN PRN Reason: Diarrhea/Loose Stools Loratadine (Claritin) 10 mg PO DAILYPRN PRN PRN Reason: Sinus Symptoms Magnesium Hydroxide (Milk Of Magnesium) 30 ml PO DAILYPRN PRN PRN Reason: Constipation Methylprednisolone Sodium Succinate (Solu-Medrol) 40 mg IVP Q6HR [facility] Last Admin: 09/23/17 11:09 Dose: 40 mg Metoclopramide HCl (Reglan) 10 mg IVP Q8H [facility] Last Admin: 09/23/17 09:03 Dose: 10 mg Mineral Oil/White Petrolatum (Eucerin Cream) 0 gm TOP BIDPRN PRN PRN Reason: Dry Skin Montelukast Sodium (Singulair) 10 mg PO QPM [facility] Last Admin: 09/22/17 20:15 Dose: 10 mg Pantoprazole Sodium (Protonix) 40 mg IVP DAILY [facility] Last Admin: 09/23/17 08:56 Dose: 40 mg Phenol (Chloraseptic [place] 180 Ml Bot) 0 ml PO PRN PRN PRN Reason: Sore Throat Saccharomyces Boulardii (Florastor) 250 mg PO DAILY [facility] Last Admin: 09/23/17 08:56 Dose: 250 mg Senna (Senokot) 2 tab PO HSPRN PRN PRN Reason: Constipation Sodium Chloride ([place] Nasal [place] 0.65%) 0 ml EA NARE QIDPRN PRN PRN Reason: Nasal Congestion
[2017-09-23] MEDS ORDERED: Amlodipine 10 MG TAB PO SCH (11:45)
[2017-09-23] MEDS: cefTRIAXone\\ROCEPHIN 1 GM in Sodium Chloride 0.9% 100 ML IVPB SCH (14:14)
[2017-09-23] MEDS: Azithromycin 500 MG in Sodium Chloride 0.9% 250 ML 250 ML IVPB SCH (16:39)
[2017-09-23] MEDS: Montelukast Sodium 10 mg Tablet PO SCH (20:12)
[2017-09-23 22:34] LABS: Bilirubin Negative (Negative); Blood, Urine Trace (Negative); Clarity CLOUDY (Clear); Glucose, Urine (Dipstick) Negative (Negative); Leukocyte Trace (Negative); Nitrite Negative (Negative); Protein, Urine (Dipstick) Trace mg/dL (Neg-Trace); Specific Gravity, Urine 1.021 (1.002-1.036); Urobilinogen 0.2 mg/dL (0.2-1.0)
[2017-09-23 22:36] LABS: Bacteria/HPF None Seen HPF (None Seen); Hyaline Casts/LPF 0-3 HYALINE CAST LPF (0-3 Hyaline); Pathc Cast-AUWi Flag 0.58 (0-2.49); WBC/HPF 0-3 HPF (0-3)
[2017-09-23 22:37] LABS: Yeast-AUWi Flag 77.4 (0-25.0)
[2017-09-23 22:43] LABS: Yeast-All Forms 1+ HPF (None Seen)
[2017-09-24] MEDS: Diabetic Tussin 200 MG/10 ML UDCUP PO PRN ×3 (05:45→21:34)
[2017-09-24] MEDS: Budesonide 0.5 MG/2 ML NEB INH SCH ×2 (06:41→18:49)
--- NOTE | 2017-09-24 07:07 | PDOC.EVN ---
Event Note - Event Note Event Note: Notified patient was having respiratory difficulties. She was doing well until she apparently choked on pudding this morning. She started coughing and now has significant tachypnea with HR 150 range. Has had double neb, but does not appear to be improving. Short, choppy breaths with poor air exchange and scattered rales and wheezes. Willing to try the Bipap. Will transfer back to [facility] with Bipap. Ordered mag.
[2017-09-24] MEDS ORDERED: Magnesium 2 GM/NS 0.9% 100 ML 2 GM in Premix Bag 1 BAG IVPB SCH (07:15)
[2017-09-24] MEDS: Saccharomyces boulardii 250 MG CAP PO SCH (08:42)
[2017-09-24] MEDS: Enoxaparin Sodium 30 MG/0.3 ML SYRINGE SC SCH (08:43)
[2017-09-24] MEDS: Docusate 100 MG CAP PO SCH ×2 (08:43→21:34)
[2017-09-24] MEDS: Amlodipine 10 MG TAB PO SCH (08:43)
[2017-09-24] MEDS: Metoclopramide HCl 10 MG/2 ML VIAL IVP SCH ×2 (08:53→18:09)
--- NOTE | 2017-09-24 08:57 | PRG ---
DATE OF SERVICE: 09/24/2017 Ms. Camp was just transferred from the medical floor down to the ICU after she choked on some puddin g, became acutely short of breath and noninvasive ventilation was placed in. Upon my arrival, she is barrel chested. She was clearly better. PHYSICAL EXAMINATION: VITAL SIGNS: Pulse 124, sinus tachycardia, blood pressure 157/82, sats 94%, respirations 26, BiPAP w as removed. CHEST: Chest reveals decreased breath sounds, prolonged expiration. CARDIAC: Sinus tachycardia. ABDOMEN: Soft. CBC and chemistry was unremarkable. IMPRESSION: 1. Chronic obstructive pulmonary disease exacerbation. 2. Bronchitis. 3. Sinus tachycardia. 4. Severe deconditioning. 5. Severe scoliosis. PLAN: 1. Discontinue the BiPAP. 2. CV can transition her to low flow O2. 3. Neb treatments. 4. Supportive care. This is one-half hour critical care time. I will follow.
--- NOTE | 2017-09-24 09:12 | RAD ---
FRONTAL VIEW CHEST: COMPARISON: 09/22/17. CLINICAL INDICATION: COPD. FINDINGS: There is a stable appearance to the cardiomediastinal silhouette. Vascular prominence is seen bilate rally. There are extrinsic artifacts overlying the chest limiting detail. Otherwise, no significant interval change. Decompensated congestive heart failure as suggested. IMPRESSION: Stable chest. POS: DONN
[2017-09-24] MEDS: HumaLOG 300 UNITS/3 ML VIAL SC PRN (11:10)
--- NOTE | 2017-09-24 12:19 | PDOC.PN ---
- Subjective Encounter Start Date: 09/24/17 Encounter Start Time: 09:30 Patient seen and examined. this morning again pt was in respiratory distress, she was tachypnic and tachycardic, required again bipap, - Objective Resuscitation Status: Resuscitation Status DNR:Do Not Resuscitate MAR Reviewed: Yes Vital Signs & Weight: Vital Signs (12 hours) Temp Pulse Resp BP BP Pulse Ox 09/24/17 12:00 98.1 F 09/24/17 09:45 142 H 38 H 97 09/24/17 08:43 138 H 129/80 09/24/17 07:56 97.9 F 127 H 26 H 95 09/24/17 07:20 139 H 09/24/17 06:55 148 H 52 H 98 09/24/17 06:42 92 L 09/24/17 06:36 140 H 56 H 92 L 09/24/17 04:00 97.9 F 104 H 20 158/82 H 09/24/17 03:48 90 L 09/24/17 03:46 95 Weight Admit Weight 99 lb 3.328 oz Weight 99 lb 3.328 oz Most Recent Monitor Data Heart Rate from ECG 119 NIBP 141/91 NIBP BP-Mean 112 Respiration from ECG 26 SpO2 99 I&O: 09/23/17 09/24/17 09/25/17 06:59 06:59 06:59 Intake Total 500 358 340 Output Total 200 Balance 500 358 140 Result Diagrams: 09/23/17 03:30 09/23/17 03:30 Additional Labs: Accuchecks 09/24/17 09/24/17 09/23/17 11:03 04:57 20:25 POC Glucose 164 H 153 H 181 H 09/23/17 09/23/17 16:55 13:28 POC Glucose 156 H 219 H Radiology Reviewed by me: Yes (chest xray) EKG Reviewed by me: Yes (tachycardia) Phys Exam - Physical Examination respi distress HEENT: PERRLA, sclera anicteric Neck: no JVD, supple Respiratory: wheezing present use of accessary muscle of respiration Cardiovascular: RRR, no significant murmur, no rub tachycardia Gastrointestinal: soft, non-tender, no distention, positive bowel sounds Musculoskeletal: no edema, pulses present Lymphatic: no nodes Psychiatric: normal affect Skin: no rash, normal turgor Dx/Plan (1) Acute asthmatic bronchitis Code(s): J45.909 - UNSPECIFIED ASTHMA, UNCOMPLICATED Status: Acute (2) Acute respiratory failure with hypoxia Code(s): J96.01 - ACUTE RESPIRATORY FAILURE WITH HYPOXIA Status: Resolved (3) Hyperglycemia, drug-induced Code(s): R73.9 - HYPERGLYCEMIA, UNSPECIFIED; T50.905A - ADVERSE EFFECT OF UNSP DRUG/MEDS/BIOL SUBST, INIT Status: Acute (4) Gastroparesis Code(s): K31.84 - GASTROPARESIS Status: Chronic (5) Intellectual disability Code(s): F79 - UNSPECIFIED INTELLECTUAL DISABILITIES Status: Chronic (6) Physical deconditioning Code(s): R53.81 - OTHER MALAISE Status: Chronic (7) Protein-calorie malnutrition, moderate Code(s): E44.0 - MODERATE PROTEIN-CALORIE MALNUTRITION Status: Chronic (8) Scoliosis Status: Chronic - Plan cont current plan of care, plan discussed w/ family, continue antibiotics, respiratory therapy * will transfer to ccu * will need bipap * continue current optimum medical therapy for asthma * pulmonary on case * discussed and updated condition with daughter * prognosis gaurded * medication reviewed as below * symptomatic treatment * she is still dnr. Review of Systems - Review of Systems Eyes: negative: Pain, Vision Change, Conjunctivae Inflammation, Eyelid Inflammation, Redness, Other ENT: negative: Ear Pain, Ear Discharge, Nose Pain, Nose Discharge, Nose Congestion, Mouth Pain, Mouth Swelling, Throat Pain, Throat Swelling, Other Respiratory: Cough, Shortness of Breath, SOB with Excertion. negative: Dry, Hemoptysis, Pleuritic Pain, Sputum, Wheezing Cardiovascular: negative: chest pain, palpitations, orthopnea, paroxysmal nocturnal dyspnea, edema, light headedness, other Gastrointestinal: negative: Nausea, Vomiting, Abdominal Pain, Diarrhea, Constipation, Melena, Hematochezia, Other Genitourinary: negative: Dysuria, Frequency, Incontinence, Hematuria, Retention , Other Musculoskeletal: negative: Neck Pain, Shoulder Pain, Arm Pain, Back Pain, Hand Pain, Leg Pain, Foot Pain, Other Skin: negative: Rash, Lesions, Jonas, Bruising, Other - Medications/Allergies Allergies/Adverse Reactions: Allergies Allergy/AdvReac Type Severity Reaction Status Date / Time No Known Allergies Allergy Verified 07/15/18 17:27 Medications: Current Medications Acetaminophen (Tylenol) 650 mg PO Q4H PRN PRN Reason: Headache/Fever or Pain Last Admin: 09/23/17 03:27 Dose: 650 mg Al Hydroxide/Mg Hydroxide (Maalox) 30 ml PO Q6H PRN PRN Reason: Heartburn or Indigestion Albuterol/Ipratropium (Duoneb) 3 ml NEB [id number] [facility] Last Admin: 09/24/17 09:45 Dose: 3 ml Albuterol/Ipratropium (Duoneb) 3 ml NEB [id number] PRN PRN Reason: SOB &/or Wheezing Last Admin: 09/24/17 07:15 Dose: 3 ml Amlodipine Besylate (Norvasc) 10 mg PO DAILY [facility] Last Admin: 09/24/17 08:43 Dose: 10 mg Artificial Tears (Tears Naturale) 0 drop EA EYE PRN PRN PRN Reason: Dry Eyes Bisacodyl (Dulcolax) 10 mg SD Q24H PRN PRN Reason: Constipation Budesonide (Pulmicort Neb Solution) 0.5 mg INH BID-RT [facility] Last Admin: 09/24/17 06:41 Dose: 0.5 mg Clonidine (Catapres) 0.1 mg PO Q4H PRN PRN Reason: Systolic BP > 180 Last Admin: 09/23/17 11:08 Dose: 0.1 mg Dextrose/Water (Dextrose 50%) 25 gm SLOW IVP PRN PRN PRN Reason: Hypoglycemia Docusate Sodium (Colace) 100 mg PO BID [facility] Last Admin: 09/24/17 08:43 Dose: 100 mg Enoxaparin Sodium (Lovenox) 30 mg SC 0900 [facility] Last Admin: 09/24/17 08:43 Dose: 30 mg Glucagon (Glucagon) 1 mg IM PRN PRN PRN Reason: Hypoglycemia Guaifenesin (Robitussin Sf) 200 mg PO Q4H PRN PRN Reason: Cough Last Admin: 09/24/17 05:45 Dose: 200 mg Azithromycin 500 mg/ Sodium (Chloride) 250 mls @ 250 mls/hr IVPB 1500 [facility] Last Admin: 09/23/17 16:39 Dose: 250 mls Ceftriaxone Sodium 1 gm/ (Sodium Chloride) 100 mls @ 200 mls/hr IVPB 1400 [facility] Last Admin: 09/23/17 14:14 Dose: 100 mls Dextrose/Water (D5w) 1,000 mls @ 0 mls/hr IV .Q0M PRN; As Directed PRN Reason: Hypoglycemia Insulin Human Lispro (Humalog) 0 units SC .MODERATE SLIDING SC PRN PRN Reason: Moderate Correctional Scale Last Admin: 09/24/17 11:10 Dose: 2 unit Insulin Human Lispro (Humalog) 0 units SC .BEDTIME SLIDING SC PRN PRN Reason: Bedtime Correctional Scale Loperamide HCl (Imodium) 2 mg PO PRN PRN PRN Reason: Diarrhea/Loose Stools Loratadine (Claritin) 10 mg PO DAILYPRN PRN PRN Reason: Sinus Symptoms Magnesium Hydroxide (Milk Of Magnesium) 30 ml PO DAILYPRN PRN PRN Reason: Constipation Methylprednisolone Sodium Succinate (Solu-Medrol) 40 mg IVP Q6HR [facility] Last Admin: 09/24/17 11:22 Dose: 40 mg Metoclopramide HCl (Reglan) 10 mg IVP Q8H [facility] Last Admin: 09/24/17 08:53 Dose: Not Given Mineral Oil/White Petrolatum (Eucerin Cream) 0 gm TOP BIDPRN PRN PRN Reason: Dry Skin Montelukast Sodium (Singulair) 10 mg PO QPM [facility] Last Admin: 09/23/17 20:12 Dose: 10 mg Pantoprazole Sodium (Protonix) 40 mg PO DAILY [facility] Last Admin: 09/24/17 08:43 Dose: 40 mg Phenol (Chloraseptic [place] 180 Ml Bot) 0 ml PO PRN PRN PRN Reason: Sore Throat Saccharomyces Boulardii (Florastor) 250 mg PO DAILY [facility] Last Admin: 09/24/17 08:42 Dose: 250 mg Senna (Senokot) 2 tab PO HSPRN PRN PRN Reason: Constipation Sodium Chloride ([place] Nasal [place] 0.65%) 0 ml EA NARE QIDPRN PRN PRN Reason: Nasal Congestion
[2017-09-24] MEDS: cefTRIAXone\\ROCEPHIN 1 GM in Sodium Chloride 0.9% 100 ML IVPB SCH (13:41)
[2017-09-24] MEDS: Azithromycin 500 MG in Sodium Chloride 0.9% 250 ML 250 ML IVPB SCH (15:26)
[2017-09-24] MEDS: Montelukast Sodium 10 mg Tablet PO SCH (21:34)
[2017-09-25] MEDS: Metoclopramide HCl 10 MG/2 ML VIAL IVP SCH ×3 (00:45→18:02)
[2017-09-25] MEDS: Budesonide 0.5 MG/2 ML NEB INH SCH ×2 (06:39→19:11)
[2017-09-25] MEDS: HumaLOG 300 UNITS/3 ML VIAL SC PRN (06:53)
--- NOTE | 2017-09-25 09:23 | PRG ---
DATE OF SERVICE: 09/25/2017 She is better. She is less short of breath. She is ____ to 106. PHYSICAL EXAMINATION: VITAL SIGNS: Temperature 97, blood pressure 140/75, sats are 97% on 2 liters, respiration 20. CHEST: Decreased breath sounds, no wheezing. CARDIAC: Sinus tachycardia. ABDOMEN: Soft. IMPRESSION: 1. Respiratory failure. 2. Marked kyphoscoliosis. 3. Bronchospasm. 4. Ongoing microaspiration. PLAN: Continue steroids, neb treatments, supportive care. She has been made a DNR. She can probably be transferred out of the [facility] in the next 24-48 hours.
--- NOTE | 2017-09-25 10:37 | PDOC.PN ---
- Subjective Encounter Start Date: 09/25/17 Encounter Start Time: 09:00 Patient seen and examined. No new complaints. No overnight events - Objective Resuscitation Status: Resuscitation Status DNR:Do Not Resuscitate MAR Reviewed: Yes Vital Signs & Weight: Vital Signs (12 hours) Temp Pulse Resp BP Pulse Ox 09/25/17 08:00 97.9 F 106 H 20 09/25/17 07:40 97.9 F 106 H 20 149/75 H 96 09/25/17 06:42 95 09/25/17 06:38 87 28 H 99 09/25/17 04:00 97.8 F 84 18 153/80 H 99 09/25/17 02:45 82 30 H 98 09/25/17 00:00 98.8 F 109 H 18 174/98 H 99 09/24/17 22:47 98 28 H 99 Weight Admit Weight 99 lb 3.328 oz Weight 99 lb 3.328 oz Most Recent Monitor Data Heart Rate from ECG 119 NIBP 141/91 NIBP BP-Mean 112 Respiration from ECG 26 SpO2 99 I&O: 09/24/17 09/25/17 09/26/17 06:59 06:59 06:59 Intake Total 358 1440 Output Total 200 Balance 358 1240 Result Diagrams: 09/23/17 03:30 09/23/17 03:30 Additional Labs: Accuchecks 09/25/17 09/25/17 09/24/17 10:14 05:53 20:53 POC Glucose 187 H 143 H 196 H 09/24/17 09/24/17 16:44 11:03 POC Glucose 163 H 164 H EKG Reviewed by me: Yes (sinus tachycardia) Phys Exam - Physical Examination Constitutional: NAD HEENT: PERRLA, moist MMs, sclera anicteric Neck: no JVD, supple few wheezing Cardiovascular: RRR, no significant murmur, no rub tachycardia Gastrointestinal: soft, non-tender, no distention, positive bowel sounds Musculoskeletal: no edema, pulses present Neurological: non-focal, normal sensation Lymphatic: no nodes Psychiatric: normal affect Skin: no rash, normal turgor Dx/Plan (1) Acute asthmatic bronchitis Code(s): J45.909 - UNSPECIFIED ASTHMA, UNCOMPLICATED Status: Acute (2) Acute respiratory failure with hypoxia Code(s): J96.01 - ACUTE RESPIRATORY FAILURE WITH HYPOXIA Status: Resolved (3) Hyperglycemia, drug-induced Code(s): R73.9 - HYPERGLYCEMIA, UNSPECIFIED; T50.905A - ADVERSE EFFECT OF UNSP DRUG/MEDS/BIOL SUBST, INIT Status: Acute (4) Gastroparesis Code(s): K31.84 - GASTROPARESIS Status: Chronic (5) Intellectual disability Code(s): F79 - UNSPECIFIED INTELLECTUAL DISABILITIES Status: Chronic (6) Physical deconditioning Code(s): R53.81 - OTHER MALAISE Status: Chronic (7) Protein-calorie malnutrition, moderate Code(s): E44.0 - MODERATE PROTEIN-CALORIE MALNUTRITION Status: Chronic (8) Scoliosis Status: Chronic - Plan cont current plan of care, continue antibiotics, respiratory therapy * medication reviewed as below * symptomatic treatment * pt today feels better, improving * will consider transfer to medical floor when pulmonary ok * if continue to be stable then will consider discharge in next 24-48 hours * ambulate as tolerated today * continue current empiric antibiotics and current optimum medical therapy for asthma. Review of Systems - Review of Systems ENT: negative: Ear Pain, Ear Discharge, Nose Pain, Nose Discharge, Nose Congestion, Mouth Pain, Mouth Swelling, Throat Pain, Throat Swelling, Other Respiratory: negative: Cough, Dry, Shortness of Breath, Hemoptysis, SOB with Excertion, Pleuritic Pain, Sputum, Wheezing Cardiovascular: negative: chest pain, palpitations, orthopnea, paroxysmal nocturnal dyspnea, edema, light headedness, other Gastrointestinal: negative: Nausea, Vomiting, Abdominal Pain, Diarrhea, Constipation, Melena, Hematochezia, Other Genitourinary: negative: Dysuria, Frequency, Incontinence, Hematuria, Retention , Other Musculoskeletal: negative: Neck Pain, Shoulder Pain, Arm Pain, Back Pain, Hand Pain, Leg Pain, Foot Pain, Other Skin: negative: Rash, Lesions, Jonas, Bruising, Other Other: not reliable due to her intellectual disability - Medications/Allergies Allergies/Adverse Reactions: Allergies Allergy/AdvReac Type Severity Reaction Status Date / Time No Known Allergies Allergy Verified 09/22/17 17:27 Medications: Current Medications Acetaminophen (Tylenol) 650 mg PO Q4H PRN PRN Reason: Headache/Fever or Pain Last Admin: 09/23/17 03:27 Dose: 650 mg Al Hydroxide/Mg Hydroxide (Maalox) 30 ml PO Q6H PRN PRN Reason: Heartburn or Indigestion Albuterol/Ipratropium (Duoneb) 3 ml NEB [id number] [facility] Last Admin: 09/25/17 06:38 Dose: 3 ml Albuterol/Ipratropium (Duoneb) 3 ml NEB [id number] PRN PRN Reason: SOB &/or Wheezing Last Admin: 09/24/17 07:15 Dose: 3 ml Amlodipine Besylate (Norvasc) 10 mg PO DAILY [facility] Last Admin: 09/24/17 08:43 Dose: 10 mg Artificial Tears (Tears Naturale) 0 drop EA EYE PRN PRN PRN Reason: Dry Eyes Bisacodyl (Dulcolax) 10 mg [place] Q24H PRN PRN Reason: Constipation Budesonide (Pulmicort Neb Solution) 0.5 mg INH BID-RT [facility] Last Admin: 09/25/17 06:39 Dose: 0.5 mg Clonidine (Catapres) 0.1 mg PO Q4H PRN PRN Reason: Systolic BP > 180 Last Admin: 09/23/17 11:08 Dose: 0.1 mg Dextrose/Water (Dextrose 50%) 25 gm SLOW IVP PRN PRN PRN Reason: Hypoglycemia Docusate Sodium (Colace) 100 mg PO BID [facility] Last Admin: 09/24/17 21:34 Dose: 100 mg Enoxaparin Sodium (Lovenox) 30 mg SC 0900 [facility] Last Admin: 09/24/17 08:43 Dose: 30 mg Glucagon (Glucagon) 1 mg IM PRN PRN PRN Reason: Hypoglycemia Guaifenesin (Robitussin Sf) 200 mg PO Q4H PRN PRN Reason: Cough Last Admin: 09/24/17 21:34 Dose: 200 mg Azithromycin 500 mg/ Sodium (Chloride) 250 mls @ 250 mls/hr IVPB 1500 [facility] Last Admin: 09/24/17 15:26 Dose: 250 mls Ceftriaxone Sodium 1 gm/ (Sodium Chloride) 100 mls @ 200 mls/hr IVPB 1400 [facility] Last Admin: 09/24/17 13:41 Dose: 100 mls Dextrose/Water (D5w) 1,000 mls @ 0 mls/hr IV .Q0M PRN; As Directed PRN Reason: Hypoglycemia Insulin Human Lispro (Humalog) 0 units SC .MODERATE SLIDING SC PRN PRN Reason: Moderate Correctional Scale Last Admin: 09/25/17 06:53 Dose: 2 unit Insulin Human Lispro (Humalog) 0 units SC .BEDTIME SLIDING SC PRN PRN Reason: Bedtime Correctional Scale Loperamide HCl (Imodium) 2 mg PO PRN PRN PRN Reason: Diarrhea/Loose Stools Loratadine (Claritin) 10 mg PO DAILYPRN PRN PRN Reason: Sinus Symptoms Magnesium Hydroxide (Milk Of Magnesium) 30 ml PO DAILYPRN PRN PRN Reason: Constipation Methylprednisolone Sodium Succinate (Solu-Medrol) 40 mg IVP Q6HR [facility] Last Admin: 09/25/17 05:52 Dose: 40 mg Metoclopramide HCl (Reglan) 10 mg IVP Q8H [facility] Last Admin: 09/25/17 00:45 Dose: 10 mg Mineral Oil/White Petrolatum (Eucerin Cream) 0 gm TOP BIDPRN PRN PRN Reason: Dry Skin Montelukast Sodium (Singulair) 10 mg PO QPM [facility] Last Admin: 09/24/17 21:34 Dose: 10 mg Pantoprazole Sodium (Protonix) 40 mg PO DAILY [facility] Last Admin: 09/24/17 08:43 Dose: 40 mg Phenol (Chloraseptic [place] 180 Ml Bot) 0 ml PO PRN PRN PRN Reason: Sore Throat Saccharomyces Boulardii (Florastor) 250 mg PO DAILY [facility] Last Admin: 09/24/17 08:42 Dose: 250 mg Senna (Senokot) 2 tab PO HSPRN PRN PRN Reason: Constipation Sodium Chloride ([place] Nasal [place] 0.65%) 0 ml EA NARE QIDPRN PRN PRN Reason: Nasal Congestion
[2017-09-25] MEDS: Amlodipine 10 MG TAB PO SCH (10:49)
[2017-09-25] MEDS: Saccharomyces boulardii 250 MG CAP PO SCH (10:49)
[2017-09-25] MEDS: Enoxaparin Sodium 30 MG/0.3 ML SYRINGE SC SCH (10:49)
[2017-09-25] MEDS: Docusate 100 MG CAP PO SCH ×2 (10:49→20:53)
[2017-09-25] MEDS: cefTRIAXone\\ROCEPHIN 1 GM in Sodium Chloride 0.9% 100 ML IVPB SCH (13:21)
[2017-09-25] MEDS: Azithromycin 500 MG in Sodium Chloride 0.9% 250 ML 250 ML IVPB SCH (16:07)
[2017-09-25] MEDS: Diabetic Tussin 200 MG/10 ML UDCUP PO PRN (17:06)
[2017-09-25] MEDS: Montelukast Sodium 10 mg Tablet PO SCH (20:53)
[2017-09-26] MEDS: Metoclopramide HCl 10 MG/2 ML VIAL IVP SCH ×3 (02:01→17:28)
[2017-09-26] MEDS: Diabetic Tussin 200 MG/10 ML UDCUP PO PRN ×2 (02:20→20:28)
[2017-09-26] MEDS: Budesonide 0.5 MG/2 ML NEB INH SCH ×2 (07:15→19:33)
--- NOTE | 2017-09-26 08:43 | PRG ---
DATE OF SERVICE: 09/26/2017 This morning she is better. She is less short of breath. PHYSICAL EXAMINATION: VITAL SIGNS: Blood pressure 152/82, sats are 92% on 2 liters, temperature 99, low grade. CHEST: Chest revealed decreased breath, no wheezing. CARDIAC: Normal S1-S2. No gallops. ABDOMEN: Soft, no masses. IMPRESSION: 1. End end-stage chronic obstructive pulmonary disease. 2. Bronchial asthma. 3. Severe kyphoscoliosis. PLAN: Can probably be transferred out of the [facility] to an unmonitored bed. She is a DNR. Continue ne b treatment and supportive care. I see no evidence of any infection at this time to continue broad-spectrum antibiotics. Long-term pr ognosis is grave.
[2017-09-26] MEDS: Docusate 100 MG CAP PO SCH ×2 (09:51→20:28)
[2017-09-26] MEDS: Amlodipine 10 MG TAB PO SCH (09:51)
[2017-09-26] MEDS: Saccharomyces boulardii 250 MG CAP PO SCH (09:51)
[2017-09-26] MEDS: Amoxicillin/Potassium Clav 250 MG TAB PO SCH ×2 (09:51→21:48)
[2017-09-26] MEDS: Enoxaparin Sodium 30 MG/0.3 ML SYRINGE SC SCH (09:58)
[2017-09-26] MEDS: HumaLOG 300 UNITS/3 ML VIAL SC PRN ×2 (12:01→21:48)
[2017-09-26] MEDS: Acetaminophen 325 MG TAB PO PRN (12:26)
--- NOTE | 2017-09-26 12:29 | PDOC.PN ---
- Subjective Encounter Start Date: 09/26/17 Encounter Start Time: 10:15 Patient seen and examined. pt is still tachycardic, has wheezing. No overnight events - Objective Resuscitation Status: Resuscitation Status DNR:Do Not Resuscitate MAR Reviewed: Yes Vital Signs & Weight: Vital Signs (12 hours) Temp Pulse Resp BP Pulse Ox 09/26/17 11:35 98.6 F 128 H 24 H 163/102 H 98 09/26/17 11:08 126 H 24 H 97 09/26/17 09:51 97 09/26/17 08:00 99.5 F 97 24 H 99 09/26/17 07:58 99.5 F 97 20 152/81 H 99 09/26/17 07:17 99 09/26/17 07:15 86 20 09/26/17 04:00 97.8 F 103 H 20 161/90 H 100 09/26/17 02:44 102 H 26 H 100 Weight Admit Weight 99 lb 3.328 oz Weight 96 lb 3.2 oz Most Recent Monitor Data Heart Rate from ECG 119 NIBP 141/91 NIBP BP-Mean 112 Respiration from ECG 26 SpO2 99 I&O: 09/25/17 09/26/17 09/27/17 06:59 06:59 06:59 Intake Total 1440 1200 Output Total 200 Balance 1240 1200 Result Diagrams: 09/23/17 03:30 09/23/17 03:30 Additional Labs: Accuchecks 09/26/17 09/26/17 09/25/17 10:14 05:48 20:55 POC Glucose 266 H 144 H 152 H 09/25/17 17:50 POC Glucose 176 H EKG Reviewed by me: Yes (tachycardia) Phys Exam - Physical Examination Constitutional: NAD HEENT: PERRLA, moist MMs, sclera anicteric Neck: no JVD, supple Respiratory: no rales, wheezing present Cardiovascular: RRR, no significant murmur, no rub tachycardia Gastrointestinal: soft, non-tender, no distention, positive bowel sounds Musculoskeletal: no edema, pulses present Neurological: moves all 4 limbs Lymphatic: no nodes Psychiatric: normal affect Skin: no rash, normal turgor Dx/Plan (1) Acute asthmatic bronchitis Code(s): J45.909 - UNSPECIFIED ASTHMA, UNCOMPLICATED Status: Acute (2) Acute respiratory failure with hypoxia Code(s): J96.01 - ACUTE RESPIRATORY FAILURE WITH HYPOXIA Status: Resolved (3) Hyperglycemia, drug-induced Code(s): R73.9 - HYPERGLYCEMIA, UNSPECIFIED; T50.905A - ADVERSE EFFECT OF UNSP DRUG/MEDS/BIOL SUBST, INIT Status: Acute (4) Gastroparesis Code(s): K31.84 - GASTROPARESIS Status: Chronic (5) Intellectual disability Code(s): F79 - UNSPECIFIED INTELLECTUAL DISABILITIES Status: Chronic (6) Physical deconditioning Code(s): R53.81 - OTHER MALAISE Status: Chronic (7) Protein-calorie malnutrition, moderate Code(s): E44.0 - MODERATE PROTEIN-CALORIE MALNUTRITION Status: Chronic (8) Scoliosis Status: Chronic - Plan cont current plan of care, plan discussed w/ family, continue antibiotics, social work msw, respiratory therapy * will reduce solumedrol 20 mg iv q 6 hourly * antibiotics changed to augmentin * discussed with sister * will consult palliative care as her prognosis is not good halfway, * she is still tachycardic and has wheezing but given her severe scoliosis, unsure how much she can improve * she is always at risk for admission * needs to consider hospice on discharge. * will add cardizem 30 mg ac hs * dc amlodipine * add start lisinopril 5 mg po daily Review of Systems - Review of Systems Constitutional: weakness. negative: fever, chills, sweats, malaise, other Respiratory: Shortness of Breath, SOB with Excertion, Wheezing. negative: Cough , Dry, Hemoptysis, Pleuritic Pain, Sputum Cardiovascular: negative: chest pain, palpitations, orthopnea, paroxysmal nocturnal dyspnea, edema, light headedness, other Gastrointestinal: negative: Nausea, Vomiting, Abdominal Pain, Diarrhea, Constipation, Melena, Hematochezia, Other Genitourinary: negative: Dysuria, Frequency, Incontinence, Hematuria, Retention , Other Musculoskeletal: negative: Neck Pain, Shoulder Pain, Arm Pain, Back Pain, Hand Pain, Leg Pain, Foot Pain, Other Other: not reliable due to her level of cognitive status - Medications/Allergies Allergies/Adverse Reactions: Allergies Allergy/AdvReac Type Severity Reaction Status Date / Time No Known Allergies Allergy Verified 09/22/17 17:27 Medications: Current Medications Acetaminophen (Tylenol) 650 mg PO Q4H PRN PRN Reason: Headache/Fever or Pain Last Admin: 09/26/17 12:26 Dose: 650 mg Al Hydroxide/Mg Hydroxide (Maalox) 30 ml PO Q6H PRN PRN Reason: Heartburn or Indigestion Albuterol/Ipratropium (Duoneb) 3 ml NEB [id number] [facility] Last Admin: 09/26/17 11:08 Dose: 3 ml Albuterol/Ipratropium (Duoneb) 3 ml NEB [id number] PRN PRN Reason: SOB &/or Wheezing Last Admin: 09/24/17 07:15 Dose: 3 ml Amlodipine Besylate (Norvasc) 10 mg PO DAILY [facility] Last Admin: 09/26/17 09:51 Dose: 10 mg Amoxicillin/Clavulanate Potassium (Augmentin) 250 mg PO BID [facility] Stop: 10/01/17 09:01 Last Admin: 09/26/17 09:51 Dose: 250 mg Artificial Tears (Tears Naturale) 0 drop EA EYE PRN PRN PRN Reason: Dry Eyes Bisacodyl (Dulcolax) 10 mg [place] Q24H PRN PRN Reason: Constipation Budesonide (Pulmicort Neb Solution) 0.5 mg INH BID-RT [facility] Last Admin: 09/26/17 07:15 Dose: 0.5 mg Clonidine (Catapres) 0.1 mg PO Q4H PRN PRN Reason: Systolic BP > 180 Last Admin: 09/23/17 11:08 Dose: 0.1 mg Dextrose/Water (Dextrose 50%) 25 gm SLOW IVP PRN PRN PRN Reason: Hypoglycemia Docusate Sodium (Colace) 100 mg PO BID [facility] Last Admin: 09/26/17 09:51 Dose: Not Given Enoxaparin Sodium (Lovenox) 30 mg SC 0900 [facility] Last Admin: 09/26/17 09:58 Dose: 30 mg Glucagon (Glucagon) 1 mg IM PRN PRN PRN Reason: Hypoglycemia Guaifenesin (Robitussin Sf) 200 mg PO Q4H PRN PRN Reason: Cough Last Admin: 09/26/17 02:20 Dose: 200 mg Dextrose/Water (D5w) 1,000 mls @ 0 mls/hr IV .Q0M PRN; As Directed PRN Reason: Hypoglycemia Insulin Human Lispro (Humalog) 0 units SC .MODERATE SLIDING SC PRN PRN Reason: Moderate Correctional Scale Last Admin: 09/26/17 12:01 Dose: 6 unit Insulin Human Lispro (Humalog) 0 units SC .BEDTIME SLIDING SC PRN PRN Reason: Bedtime Correctional Scale Loperamide HCl (Imodium) 2 mg PO PRN PRN PRN Reason: Diarrhea/Loose Stools Loratadine (Claritin) 10 mg PO DAILYPRN PRN PRN Reason: Sinus Symptoms Magnesium Hydroxide (Milk Of Magnesium) 30 ml PO DAILYPRN PRN PRN Reason: Constipation Methylprednisolone Sodium Succinate (Solu-Medrol) 40 mg IVP Q6HR [facility] Last Admin: 09/26/17 12:01 Dose: 40 mg Metoclopramide HCl (Reglan) 10 mg IVP Q8H [facility] Last Admin: 09/26/17 09:52 Dose: Not Given Mineral Oil/White Petrolatum (Eucerin Cream) 0 gm TOP BIDPRN PRN PRN Reason: Dry Skin Montelukast Sodium (Singulair) 10 mg PO QPM [facility] Last Admin: 09/25/17 20:53 Dose: 10 mg Pantoprazole Sodium (Protonix) 40 mg PO DAILY [facility] Last Admin: 09/26/17 09:51 Dose: 40 mg Phenol (Chloraseptic [place] 180 Ml Bot) 0 ml PO PRN PRN PRN Reason: Sore Throat Saccharomyces Boulardii (Florastor) 250 mg PO DAILY [facility] Last Admin: 09/26/17 09:51 Dose: 250 mg Senna (Senokot) 2 tab PO HSPRN PRN PRN Reason: Constipation Sodium Chloride ([place] Nasal [place] 0.65%) 0 ml EA NARE QIDPRN PRN PRN Reason: Nasal Congestion
[2017-09-26] MEDS: Montelukast Sodium 10 mg Tablet PO SCH (20:28)
[2017-09-27] MEDS: cloNIDine 0.1 MG TAB PO PRN
[2017-09-27] MEDS: Metoclopramide HCl 10 MG/2 ML VIAL IVP SCH ×3 (02:36→17:48)
[2017-09-27] MEDS: Budesonide 0.5 MG/2 ML NEB INH SCH ×2 (06:30→18:34)
--- NOTE | 2017-09-27 08:30 | PRG ---
DATE OF SERVICE: 09/27/2017 She is better. She is no longer in any distress. PHYSICAL EXAMINATION: VITAL SIGNS: Sats 100% on 2 liters, temperature 98, pulse 103, blood pressure 162/80. CHEST: Chest revealed decreased breath sounds without wheezing. CARDIAC: Normal S1-S2. No gallops. ABDOMEN: Soft, no masses. IMPRESSION: 1. Severe aggressive bronchitis. 2. Severe kyphoscoliosis. PLAN: She be transferred to a medical floor. Eventually placement.
[2017-09-27] MEDS ORDERED: Lisinopril 5 MG TAB PO SCH (09:00)
[2017-09-27] MEDS: Saccharomyces boulardii 250 MG CAP PO SCH (09:36)
[2017-09-27] MEDS: Amoxicillin/Potassium Clav 250 MG TAB PO SCH ×2 (09:36→20:33)
[2017-09-27] MEDS: Enoxaparin Sodium 30 MG/0.3 ML SYRINGE SC SCH (09:36)
[2017-09-27] MEDS: Docusate 100 MG CAP PO SCH ×2 (09:36→20:34)
--- NOTE | 2017-09-27 11:40 | PDOC.PN ---
- Subjective Encounter Start Date: 09/27/17 Encounter Start Time: 07:30 Patient seen and examined. No new complaints. No overnight events pt is appear to be stable and baseline - Objective Resuscitation Status: Resuscitation Status DNR:Do Not Resuscitate MAR Reviewed: Yes Vital Signs & Weight: Vital Signs (12 hours) Temp Pulse Resp BP BP BP Pulse Ox 09/27/17 11:14 98.1 F 118 H 22 H 139/83 100 09/27/17 10:15 118 H 32 H 100 09/27/17 09:36 103 H 09/27/17 08:00 98.8 F 103 H 20 09/27/17 07:46 98.8 F 103 H 20 162/80 H 100 09/27/17 06:32 95 24 H 97 09/27/17 06:30 97 24 H 95 09/27/17 04:37 98.2 F 82 26 H 159/92 H 100 09/27/17 02:50 93 24 H 100 09/27/17 00:12 98.2 F 119 H 18 203/100 H 96 09/27/17 00:00 214/98 H Weight Admit Weight 99 lb 3.328 oz Weight 96 lb 3.2 oz Most Recent Monitor Data Heart Rate from ECG 119 NIBP 141/91 NIBP BP-Mean 112 Respiration from ECG 26 SpO2 99 I&O: 09/26/17 09/27/17 09/28/17 06:59 06:59 06:59 Intake Total 1200 1180 Balance 1200 1180 Result Diagrams: 09/23/17 03:30 09/23/17 03:30 Additional Labs: Accuchecks 09/27/17 09/27/17 09/26/17 10:38 05:58 20:56 POC Glucose 307 H 130 H 331 H 09/26/17 17:37 POC Glucose 110 EKG Reviewed by me: Yes (sinus tachycardia) Phys Exam - Physical Examination Constitutional: NAD HEENT: PERRLA, moist MMs, sclera anicteric Neck: no JVD, supple Respiratory: no rales, wheezing present scoliosis Cardiovascular: RRR, no significant murmur, no rub tachycardia Gastrointestinal: soft, non-tender, no distention, positive bowel sounds Musculoskeletal: no edema, pulses present Neurological: moves all 4 limbs Lymphatic: no nodes Psychiatric: normal affect Skin: no rash, normal turgor Dx/Plan (1) Acute asthmatic bronchitis Code(s): J45.909 - UNSPECIFIED ASTHMA, UNCOMPLICATED Status: Acute (2) Acute respiratory failure with hypoxia Code(s): J96.01 - ACUTE RESPIRATORY FAILURE WITH HYPOXIA Status: Resolved (3) Hyperglycemia, drug-induced Code(s): R73.9 - HYPERGLYCEMIA, UNSPECIFIED; T50.905A - ADVERSE EFFECT OF UNSP DRUG/MEDS/BIOL SUBST, INIT Status: Acute (4) Gastroparesis Code(s): K31.84 - GASTROPARESIS Status: Chronic (5) Intellectual disability Code(s): F79 - UNSPECIFIED INTELLECTUAL DISABILITIES Status: Chronic (6) Physical deconditioning Code(s): R53.81 - OTHER MALAISE Status: Chronic (7) Protein-calorie malnutrition, moderate Code(s): E44.0 - MODERATE PROTEIN-CALORIE MALNUTRITION Status: Chronic (8) Scoliosis Status: Chronic - Plan cont current plan of care, plan discussed w/ family, continue antibiotics, bilingual social worker, respiratory therapy * transfer to medical as per pulmonary * continue solumedrol, duoneb, pulmicort, singulair * palliative care on case for goal of care * she may need home hospice vs placement * she is at high risk for readmission * 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 Review of Systems - Review of Systems Other: not reliable with pt due to her level of cognitive status - Medications/Allergies Allergies/Adverse Reactions: Allergies Allergy/AdvReac Type Severity Reaction Status Date / Time No Known Allergies Allergy Verified 09/22/17 17:27 Medications: Current Medications Acetaminophen (Tylenol) 650 mg PO Q4H PRN PRN Reason: Headache/Fever or Pain Last Admin: 09/26/17 12:26 Dose: 650 mg Al Hydroxide/Mg Hydroxide (Maalox) 30 ml PO Q6H PRN PRN Reason: Heartburn or Indigestion Albuterol/Ipratropium (Duoneb) 3 ml NEB [id number] [facility] Last Admin: 09/27/17 10:15 Dose: 3 ml Albuterol/Ipratropium (Duoneb) 3 ml NEB [id number] PRN PRN Reason: SOB &/or Wheezing Last Admin: 09/24/17 07:15 Dose: 3 ml Amoxicillin/Clavulanate Potassium (Augmentin) 250 mg PO BID [facility] Stop: 10/01/17 09:01 Last Admin: 09/27/17 09:36 Dose: 250 mg Artificial Tears (Tears Naturale) 0 drop EA EYE PRN PRN PRN Reason: Dry Eyes Bisacodyl (Dulcolax) 10 mg [place] Q24H PRN PRN Reason: Constipation Budesonide (Pulmicort Neb Solution) 0.5 mg INH BID-RT [facility] Last Admin: 09/27/17 06:30 Dose: 0.5 mg Clonidine (Catapres) 0.1 mg PO Q4H PRN PRN Reason: Systolic BP > 180 Last Admin: 09/27/17 00:00 Dose: 0.1 mg Dextrose/Water (Dextrose 50%) 25 gm SLOW IVP PRN PRN PRN Reason: Hypoglycemia Diltiazem HCl (Cardizem) 30 mg PO ACHS [facility] Last Admin: 09/27/17 09:35 Dose: 30 mg Docusate Sodium (Colace) 100 mg PO BID [facility] Last Admin: 09/27/17 09:36 Dose: 100 mg Enoxaparin Sodium (Lovenox) 30 mg SC 0900 [facility] Last Admin: 09/27/17 09:36 Dose: 30 mg Glucagon (Glucagon) 1 mg IM PRN PRN PRN Reason: Hypoglycemia Guaifenesin (Robitussin Sf) 200 mg PO Q4H PRN PRN Reason: Cough Last Admin: 09/26/17 20:28 Dose: 200 mg Dextrose/Water (D5w) 1,000 mls @ 0 mls/hr IV .Q0M PRN; As Directed PRN Reason: Hypoglycemia Insulin Human Lispro (Humalog) 0 units SC .MODERATE SLIDING SC PRN PRN Reason: Moderate Correctional Scale Last Admin: 09/26/17 12:01 Dose: 6 unit Insulin Human Lispro (Humalog) 0 units SC .BEDTIME SLIDING SC PRN PRN Reason: Bedtime Correctional Scale Last Admin: 09/26/17 21:48 Dose: 4 unit Lisinopril (Zestril) 5 mg PO DAILY [facility] Last Admin: 09/27/17 09:36 Dose: 5 mg Loperamide HCl (Imodium) 2 mg PO PRN PRN PRN Reason: Diarrhea/Loose Stools Loratadine (Claritin) 10 mg PO DAILYPRN PRN PRN Reason: Sinus Symptoms Magnesium Hydroxide (Milk Of Magnesium) 30 ml PO DAILYPRN PRN PRN Reason: Constipation Methylprednisolone Sodium Succinate (Solu-Medrol) 20 mg IVP Q6HR [facility] Last Admin: 09/27/17 05:14 Dose: 20 mg Metoclopramide HCl (Reglan) 10 mg IVP Q8H [facility] Last Admin: 09/27/17 09:36 Dose: Not Given Mineral Oil/White Petrolatum (Eucerin Cream) 0 gm TOP BIDPRN PRN PRN Reason: Dry Skin Montelukast Sodium (Singulair) 10 mg PO QPM [facility] Last Admin: 09/26/17 20:28 Dose: 10 mg Pantoprazole Sodium (Protonix) 40 mg PO DAILY [facility] Last Admin: 09/27/17 09:36 Dose: 40 mg Phenol (Chloraseptic [place] 180 Ml Bot) 0 ml PO PRN PRN PRN Reason: Sore Throat Saccharomyces Boulardii (Florastor) 250 mg PO DAILY [facility] Last Admin: 09/27/17 09:36 Dose: 250 mg Senna (Senokot) 2 tab PO HSPRN PRN PRN Reason: Constipation Sodium Chloride ([place] Nasal [place] 0.65%) 0 ml EA NARE QIDPRN PRN PRN Reason: Nasal Congestion
[2017-09-27] MEDS: HumaLOG 300 UNITS/3 ML VIAL SC PRN ×2 (13:46→20:40)
[2017-09-27] MEDS: Diabetic Tussin 200 MG/10 ML UDCUP PO PRN (20:34)
[2017-09-27] MEDS: Montelukast Sodium 10 mg Tablet PO SCH (20:34)
[2017-09-28] MEDS: Metoclopramide HCl 10 MG/2 ML VIAL IVP SCH ×3 (00:29→17:29)
[2017-09-28] MEDS: Budesonide 0.5 MG/2 ML NEB INH SCH ×2 (06:28→22:10)
[2017-09-28] MEDS: Amoxicillin/Potassium Clav 250 MG TAB PO SCH ×2 (07:55→21:11)
[2017-09-28] MEDS: Enoxaparin Sodium 30 MG/0.3 ML SYRINGE SC SCH (07:55)
[2017-09-28] MEDS: Docusate 100 MG CAP PO SCH ×2 (07:55→21:10)
[2017-09-28] MEDS: Saccharomyces boulardii 250 MG CAP PO SCH (07:55)
[2017-09-28 08:10] LABS: Hemoglobin 14.1 g/dL (12.0-16.0); Mean Corpuscular Hemoglobin 32.7 pg (27.0-31.0); Mean Corpuscular Volume 98.9 fL (78.0-98.0); Mean Platelet Volume 7.1 fL (7.4-10.4); Platelet Count 222 thou/uL (130-400); RBC Distribution Width 11.4 % (11.5-14.5); Red Blood Cell (RBC) Count 4.33 mill/uL (4.20-5.40); White Blood Cell (WBC) Count 11.8 thou/uL (4.8-10.8)
[2017-09-28 08:30] LABS: ALT (SGPT) 44 U/L (8-55); AST (SGOT) 54 U/L (5-34); Albumin 4.4 g/dL (3.4-4.8); Alkaline Phosphatase 94 U/L (40-150); Anion Gap 17 mmol/L (10-20); BUN (Urea Nitrogen) 23 mg/dL (9.8-20.1); Bilirubin, Total 0.6 mg/dL (0.2-1.2); Calc. Creatinine Clearance 46 mL/min (70-130); Calcium 10.1 mg/dL (7.8-10.44); Carbon Dioxide 33 mmol/L (23-31); Chloride 99 mmol/L (98-107); Estimated GFR-MDRD 89; Globulin 3.8 g/dL (2.4-3.5); Glucose 198 mg/dL (83-110); Potassium 4.2 mmol/L (3.5-5.1); Protein, Total 8.2 g/dL (6.0-8.3); Sodium 145 mmol/L (136-145)
[2017-09-28 08:35] LABS: MDiff Complete? YES
[2017-09-28 08:36] LABS: Band 6 % (5-11); Lymphocytes 6 % (21-51); Myelocyte 1 % (0-0); Neutrophil 87 % (42-75)
[2017-09-28] MEDS ORDERED: cloNIDine 0.1 MG TAB PO SCH (09:00)
[2017-09-28] MEDS: Lisinopril 10 MG TAB PO SCH (10:16)
--- NOTE | 2017-09-28 11:30 | PDOC.PN ---
- Subjective Encounter Start Date: 09/28/17 Encounter Start Time: 08:45 Patient seen and examined. No new complaints. No overnight events - Objective Resuscitation Status: Resuscitation Status DNR:Do Not Resuscitate MAR Reviewed: Yes Vital Signs & Weight: Vital Signs (12 hours) Temp Pulse Resp BP BP Pulse Ox 09/28/17 10:22 107 H 20 92 L 09/28/17 10:16 190/96 H 09/28/17 08:00 98.9 F 111 H 24 H 92 L 09/28/17 07:22 98.9 F 111 H 24 H 190/96 H 92 L 09/28/17 06:27 89 16 98 09/28/17 04:16 98.9 F 86 16 175/92 H 96 09/28/17 02:11 90 20 97 09/28/17 00:00 98.5 F 100 16 185/93 H 97 Weight Admit Weight 99 lb 3.328 oz Weight 96 lb 3.2 oz Most Recent Monitor Data Heart Rate from ECG 119 NIBP 141/91 NIBP BP-Mean 112 Respiration from ECG 26 SpO2 99 I&O: 09/27/17 09/28/17 09/29/17 06:59 06:59 06:59 Intake Total 1180 120 Balance 1180 120 Result Diagrams: 09/28/17 07:50 09/28/17 07:50 Additional Labs: Accuchecks 09/28/17 09/27/17 09/27/17 04:24 19:41 16:34 POC Glucose 166 H 221 H 172 H Phys Exam - Physical Examination Constitutional: NAD HEENT: PERRLA, moist MMs, sclera anicteric Neck: no JVD, supple Respiratory: no rales, wheezing present scoliosis Cardiovascular: RRR, no significant murmur, no rub Gastrointestinal: soft, non-tender, no distention, positive bowel sounds Musculoskeletal: no edema, pulses present Neurological: moves all 4 limbs Lymphatic: no nodes Psychiatric: normal affect Skin: no rash, normal turgor Dx/Plan (1) Acute asthmatic bronchitis Code(s): J45.909 - UNSPECIFIED ASTHMA, UNCOMPLICATED Status: Acute (2) Acute respiratory failure with hypoxia Code(s): J96.01 - ACUTE RESPIRATORY FAILURE WITH HYPOXIA Status: Resolved (3) Hyperglycemia, drug-induced Code(s): R73.9 - HYPERGLYCEMIA, UNSPECIFIED; T50.905A - ADVERSE EFFECT OF UNSP DRUG/MEDS/BIOL SUBST, INIT Status: Acute (4) Gastroparesis Code(s): K31.84 - GASTROPARESIS Status: Chronic (5) Intellectual disability Code(s): F79 - UNSPECIFIED INTELLECTUAL DISABILITIES Status: Chronic (6) Physical deconditioning Code(s): R53.81 - OTHER MALAISE Status: Chronic (7) Protein-calorie malnutrition, moderate Code(s): E44.0 - MODERATE PROTEIN-CALORIE MALNUTRITION Status: Chronic (8) Scoliosis Status: Chronic - Plan cont current plan of care, plan discussed w/ family, continue antibiotics, PT/OT , social services assistant, respiratory therapy * she will need snu on discharge * today will reduce solumedro 20 mg iv q 8 hourly * continue optimum respiratory therapy * increase lisinopril 10 mg po daily * continue cardizem po * medication reviewed as below * symptomatic treatment. Review of Systems - Review of Systems Other: not reliable with pt due to her level of cognitive status - Medications/Allergies Allergies/Adverse Reactions: Allergies Allergy/AdvReac Type Severity Reaction Status Date / Time No Known Allergies Allergy Verified 09/22/17 17:27 Medications: Current Medications Acetaminophen (Tylenol) 650 mg PO Q4H PRN PRN Reason: Headache/Fever or Pain Last Admin: 09/26/17 12:26 Dose: 650 mg Al Hydroxide/Mg Hydroxide (Maalox) 30 ml PO Q6H PRN PRN Reason: Heartburn or Indigestion Albuterol/Ipratropium (Duoneb) 3 ml NEB [id number] SETH Last Admin: 09/28/17 10:22 Dose: 3 ml Albuterol/Ipratropium (Duoneb) 3 ml NEB [id number] PRN PRN Reason: SOB &/or Wheezing Last Admin: 09/24/17 07:15 Dose: 3 ml Amoxicillin/Clavulanate Potassium (Augmentin) 250 mg PO BID [facility] Stop: 10/01/17 09:01 Last Admin: 09/28/17 07:55 Dose: 250 mg Artificial Tears (Tears Naturale) 0 drop EA EYE PRN PRN PRN Reason: Dry Eyes Bisacodyl (Dulcolax) 10 mg [place] Q24H PRN PRN Reason: Constipation Budesonide (Pulmicort Neb Solution) 0.5 mg INH BID-RT [facility] Last Admin: 09/28/17 06:28 Dose: 0.5 mg Clonidine (Catapres) 0.1 mg PO Q4H PRN PRN Reason: Systolic BP > 180 Last Admin: 09/27/17 00:00 Dose: 0.1 mg Dextrose/Water (Dextrose 50%) 25 gm SLOW IVP PRN PRN PRN Reason: Hypoglycemia Diltiazem HCl (Cardizem) 30 mg PO ACHS [facility] Last Admin: 09/28/17 07:55 Dose: 30 mg Docusate Sodium (Colace) 100 mg PO BID [facility] Last Admin: 09/28/17 07:55 Dose: Not Given Enoxaparin Sodium (Lovenox) 30 mg SC 0900 [facility] Last Admin: 09/28/17 07:55 Dose: 30 mg Glucagon (Glucagon) 1 mg IM PRN PRN PRN Reason: Hypoglycemia Guaifenesin (Robitussin Sf) 200 mg PO Q4H PRN PRN Reason: Cough Last Admin: 09/27/17 20:34 Dose: 200 mg Dextrose/Water (D5w) 1,000 mls @ 0 mls/hr IV .Q0M PRN; As Directed PRN Reason: Hypoglycemia Insulin Human Lispro (Humalog) 0 units SC .MODERATE SLIDING SC PRN PRN Reason: Moderate Correctional Scale Last Admin: 09/27/17 13:46 Dose: 8 unit Insulin Human Lispro (Humalog) 0 units SC .BEDTIME SLIDING SC PRN PRN Reason: Bedtime Correctional Scale Last Admin: 09/27/17 20:40 Dose: 2 unit Lisinopril (Zestril) 10 mg PO DAILY [facility] Last Admin: 09/28/17 10:16 Dose: 10 mg Loperamide HCl (Imodium) 2 mg PO PRN PRN PRN Reason: Diarrhea/Loose Stools Loratadine (Claritin) 10 mg PO DAILYPRN PRN PRN Reason: Sinus Symptoms Magnesium Hydroxide (Milk Of Magnesium) 30 ml PO DAILYPRN PRN PRN Reason: Constipation Methylprednisolone Sodium Succinate (Solu-Medrol) 20 mg IVP Q8HR [facility] Metoclopramide HCl (Reglan) 10 mg IVP Q8H [facility] Last Admin: 09/28/17 10:17 Dose: Not Given Mineral Oil/White Petrolatum (Eucerin Cream) 0 gm TOP BIDPRN PRN PRN Reason: Dry Skin Montelukast Sodium (Singulair) 10 mg PO QPM [facility] Last Admin: 09/27/17 20:34 Dose: 10 mg Pantoprazole Sodium (Protonix) 40 mg PO DAILY [facility] Last Admin: 09/28/17 07:55 Dose: 40 mg Phenol (Chloraseptic [place] 180 Ml Bot) 0 ml PO PRN PRN PRN Reason: Sore Throat Saccharomyces Boulardii (Florastor) 250 mg PO DAILY [facility] Last Admin: 09/28/17 07:55 Dose: 250 mg Senna (Senokot) 2 tab PO HSPRN PRN PRN Reason: Constipation Sodium Chloride ([place] Nasal [place] 0.65%) 0 ml EA NARE QIDPRN PRN PRN Reason: Nasal Congestion
--- NOTE | 2017-09-28 16:21 | PRG ---
DATE OF SERVICE: 09/28/2017 SERVICE: Pulmonary Medicine. INTERVAL HISTORY: The patient is doing absolutely wonderful from a respiratory standpoint. She misael cates that she is breathing comfortably. She denies any chest pain or abdominal pain. She is not lobo ving any nausea or vomiting. She suggests me she would like to get up and start moving. Otherwise, there were no events reported. PHYSICAL EXAMINATION: VITAL SIGNS: Afebrile, pulse 107, blood pressure 162/102, respirations 20, saturation 94% on 2 liter s nasal cannula. GENERAL: The patient is awake, alert, no apparent distress. LUNGS: Rhonchi are present. There is excellent air entry with no prolonged expiratory phase or whee zing. Dependent crackles are evident. HEART: Normal rate, regular. ABDOMEN: Soft, nontender, nondistended. Bowel sounds are positive. MUSCULOSKELETAL: No cyanosis or clubbing. There is no pitting in the bilateral lower extremities. NEUROLOGIC: Grossly nonfocal. LABORATORY DATA: WBC 11.8, hemoglobin 14.1, platelets 222,000. PH 7.26, pCO2 52, pO2 91. Basic met abolic profile, liver function studies are unremarkable, otherwise. Bicarbonate is currently 33. Ur inalysis is negative. Blood cultures x2, Influenza A and B are unremarkable. ASSESSMENT: 1. Acute on chronic hypoxic respiratory failure. 2. Acute bronchitis. 3. Kyphoscoliosis, severe. DISCUSSION AND PLAN: We are going to start focusing on her mobilization efforts. We get her out of bed into a chair and never worked with physical therapy. In 24-48 hours, she remains stable, she can be considered for transition out of the hospital. We will continue antibiotics, nebulized medicatio ns and steroids. Most of these will be converted over to a p.o. regimen.
[2017-09-28] MEDS: Montelukast Sodium 10 mg Tablet PO SCH (21:10)
[2017-09-28] MEDS: HumaLOG 300 UNITS/3 ML VIAL SC PRN (21:11)
[2017-09-28] MEDS: Diabetic Tussin 200 MG/10 ML UDCUP PO PRN (21:18)
[2017-09-29] MEDS: Metoclopramide HCl 10 MG/2 ML VIAL IVP SCH ×3 (01:51→16:27)
[2017-09-29] MEDS: Budesonide 0.5 MG/2 ML NEB INH SCH ×2 (06:26→18:51)
[2017-09-29] MEDS: predniSONE 20 MG TAB PO SCH (08:42)
[2017-09-29] MEDS: Amoxicillin/Potassium Clav 250 MG TAB PO SCH ×2 (08:42→20:49)
[2017-09-29] MEDS: Enoxaparin Sodium 30 MG/0.3 ML SYRINGE SC SCH (08:43)
[2017-09-29] MEDS: Docusate 100 MG CAP PO SCH ×2 (08:43→20:49)
[2017-09-29] MEDS: Lisinopril 10 MG TAB PO SCH (08:43)
[2017-09-29] MEDS: Saccharomyces boulardii 250 MG CAP PO SCH (08:43)
[2017-09-29] MEDS: Diabetic Tussin 200 MG/10 ML UDCUP PO PRN ×3 (08:52→20:58)
--- NOTE | 2017-09-29 10:15 | PDOC.PN ---
- Subjective Encounter Start Date: 09/29/17 Encounter Start Time: 09:10 Patient seen and examined. she has cough, she is very weak,. No overnight events - Objective Resuscitation Status: Resuscitation Status DNR:Do Not Resuscitate MAR Reviewed: Yes Vital Signs & Weight: Vital Signs (12 hours) Temp Pulse Resp BP BP BP Pulse Ox 09/29/17 10:04 96 28 H 09/29/17 08:43 155/85 H 09/29/17 08:00 98.0 F 103 H 14 98 09/29/17 07:21 98.0 F 103 H 14 155/85 H 98 09/29/17 06:26 87 24 H 98 09/29/17 06:23 87 24 H 98 09/29/17 04:21 98.9 F 90 16 162/96 H 97 09/29/17 02:19 85 16 99 09/29/17 00:30 98.9 F 94 18 160/89 H 96 09/29/17 00:22 94 L Weight Admit Weight 99 lb 3.328 oz Weight 96 lb 3.2 oz Most Recent Monitor Data Heart Rate from ECG 119 NIBP 141/91 NIBP BP-Mean 112 Respiration from ECG 26 SpO2 99 I&O: 09/28/17 09/29/17 09/30/17 06:59 06:59 06:59 Intake Total 120 1200 Output Total 1 Balance 120 1199 Result Diagrams: 09/28/17 07:50 09/28/17 07:50 Additional Labs: Accuchecks 09/29/17 09/28/17 09/28/17 04:27 19:48 17:46 POC Glucose 111 H 356 H 257 H 09/28/17 11:51 POC Glucose 183 H Phys Exam - Physical Examination Constitutional: NAD HEENT: PERRLA, moist MMs, sclera anicteric Neck: no JVD, supple Respiratory: no rales, wheezing present Cardiovascular: RRR, no significant murmur, no rub Gastrointestinal: soft, non-tender, no distention, positive bowel sounds Musculoskeletal: no edema, pulses present Neurological: moves all 4 limbs Lymphatic: no nodes Psychiatric: normal affect Skin: no rash, normal turgor Dx/Plan (1) Acute asthmatic bronchitis Code(s): J45.909 - UNSPECIFIED ASTHMA, UNCOMPLICATED Status: Acute (2) Acute respiratory failure with hypoxia Code(s): J96.01 - ACUTE RESPIRATORY FAILURE WITH HYPOXIA Status: Resolved (3) Hyperglycemia, drug-induced Code(s): R73.9 - HYPERGLYCEMIA, UNSPECIFIED; T50.905A - ADVERSE EFFECT OF UNSP DRUG/MEDS/BIOL SUBST, INIT Status: Acute (4) Gastroparesis Code(s): K31.84 - GASTROPARESIS Status: Chronic (5) Intellectual disability Code(s): F79 - UNSPECIFIED INTELLECTUAL DISABILITIES Status: Chronic (6) Physical deconditioning Code(s): R53.81 - OTHER MALAISE Status: Chronic (7) Protein-calorie malnutrition, moderate Code(s): E44.0 - MODERATE PROTEIN-CALORIE MALNUTRITION Status: Chronic (8) Scoliosis Status: Chronic - Plan cont current plan of care, plan discussed w/ family, continue antibiotics, PT/OT , social media analyst, respiratory therapy * now on oral prednisone * oral augmentin * continue respiratory therapy * ambulate as tolerated * she will need snu placement on discharge * medication reviewed as below * symptomatic treatment. Review of Systems - Review of Systems Other: not reliable due to her level of cognitive status - Medications/Allergies Allergies/Adverse Reactions: Allergies Allergy/AdvReac Type Severity Reaction Status Date / Time No Known Allergies Allergy Verified 09/22/17 17:27 Medications: Current Medications Acetaminophen (Tylenol) 650 mg PO Q4H PRN PRN Reason: Headache/Fever or Pain Last Admin: 09/26/17 12:26 Dose: 650 mg Al Hydroxide/Mg Hydroxide (Maalox) 30 ml PO Q6H PRN PRN Reason: Heartburn or Indigestion Albuterol/Ipratropium (Duoneb) 3 ml NEB [id number] SETH Last Admin: 09/29/17 10:04 Dose: 3 ml Albuterol/Ipratropium (Duoneb) 3 ml NEB [id number] PRN PRN Reason: SOB &/or Wheezing Last Admin: 09/24/17 07:15 Dose: 3 ml Amoxicillin/Clavulanate Potassium (Augmentin) 250 mg PO BID [facility] Stop: 10/01/17 09:01 Last Admin: 09/29/17 08:42 Dose: 250 mg Artificial Tears (Tears Naturale) 0 drop EA EYE PRN PRN PRN Reason: Dry Eyes Bisacodyl (Dulcolax) 10 mg [place] Q24H PRN PRN Reason: Constipation Budesonide (Pulmicort Neb Solution) 0.5 mg INH BID-RT [facility] Last Admin: 09/29/17 06:26 Dose: 0.5 mg Clonidine (Catapres) 0.1 mg PO Q4H PRN PRN Reason: Systolic BP > 180 Last Admin: 09/27/17 00:00 Dose: 0.1 mg Dextrose/Water (Dextrose 50%) 25 gm SLOW IVP PRN PRN PRN Reason: Hypoglycemia Diltiazem HCl (Cardizem) 30 mg PO ACHS [facility] Last Admin: 09/29/17 08:42 Dose: 30 mg Docusate Sodium (Colace) 100 mg PO BID [facility] Last Admin: 09/29/17 08:43 Dose: Not Given Enoxaparin Sodium (Lovenox) 30 mg SC 0900 [facility] Last Admin: 09/29/17 08:43 Dose: 30 mg Glucagon (Glucagon) 1 mg IM PRN PRN PRN Reason: Hypoglycemia Guaifenesin (Robitussin Sf) 200 mg PO Q4H PRN PRN Reason: Cough Last Admin: 09/29/17 08:52 Dose: 200 mg Dextrose/Water (D5w) 1,000 mls @ 0 mls/hr IV .Q0M PRN; As Directed PRN Reason: Hypoglycemia Insulin Human Lispro (Humalog) 0 units SC .MODERATE SLIDING SC PRN PRN Reason: Moderate Correctional Scale Last Admin: 09/27/17 13:46 Dose: 8 unit Insulin Human Lispro (Humalog) 0 units SC .BEDTIME SLIDING SC PRN PRN Reason: Bedtime Correctional Scale Last Admin: 09/28/17 21:11 Dose: 5 unit Lisinopril (Zestril) 10 mg PO DAILY [facility] Last Admin: 09/29/17 08:43 Dose: 10 mg Loperamide HCl (Imodium) 2 mg PO PRN PRN PRN Reason: Diarrhea/Loose Stools Loratadine (Claritin) 10 mg PO DAILYPRN PRN PRN Reason: Sinus Symptoms Magnesium Hydroxide (Milk Of Magnesium) 30 ml PO DAILYPRN PRN PRN Reason: Constipation Metoclopramide HCl (Reglan) 10 mg IVP Q8H [facility] Last Admin: 09/29/17 08:48 Dose: 10 mg Mineral Oil/White Petrolatum (Eucerin Cream) 0 gm TOP BIDPRN PRN PRN Reason: Dry Skin Montelukast Sodium (Singulair) 10 mg PO QPM [facility] Last Admin: 09/28/17 21:10 Dose: 10 mg Pantoprazole Sodium (Protonix) 40 mg PO DAILY [facility] Last Admin: 09/29/17 08:43 Dose: 40 mg Phenol (Chloraseptic [place] 180 Ml Bot) 0 ml PO PRN PRN PRN Reason: Sore Throat Prednisone (Prednisone) 40 mg PO [facility] Stop: 10/01/17 08:01 Last Admin: 09/29/17 08:42 Dose: 40 mg Saccharomyces Boulardii (Florastor) 250 mg PO DAILY [facility] Last Admin: 09/29/17 08:43 Dose: 250 mg Senna (Senokot) 2 tab PO HSPRN PRN PRN Reason: Constipation Sodium Chloride ([place] Nasal [place] 0.65%) 0 ml EA NARE QIDPRN PRN PRN Reason: Nasal Congestion
[2017-09-29] MEDS: HumaLOG 300 UNITS/3 ML VIAL SC PRN ×2 (16:29→20:49)
--- NOTE | 2017-09-29 20:16 | PRG ---
DATE OF SERVICE: 09/29/2017 SERVICE: Pulmonary Medicine. INTERVAL HISTORY: The patient was doing absolutely wonderful all day today. That being said, she fi nished dinner and started having a coughing fit. She is having increasing shortness of breath and wh eezing right now. She is starting to settle down a little bit. That being said, she has never been evaluated formally for oropharyngeal dysphagia. She denies any chest pain, nausea, vomiting or fever s. She is not coughing any sputum. PHYSICAL EXAMINATION: VITAL SIGNS: Afebrile, pulse 96, blood pressure 187/87, respirations 18, and saturation 96% on 2 lit ers nasal cannula. GENERAL: Patient is awake and alert. She is in mild respiratory distress. HEART: Normal rate. Regular. ABDOMEN: Soft, nontender, nondistended. Bowel sounds are positive. MUSCULOSKELETAL: No cyanosis or clubbing. There is no pitting in the bilateral lower extremities. NEUROLOGIC: Grossly nonfocal. LABORATORY DATA: Blood sugar ranges from 111-356. Blood cultures x2 are unremarkable. She has C. d iff antigen positive, but toxin negative. ASSESSMENT: 1. Acute on chronic hypoxic respiratory failure. 2. Acute bronchitis. 3. Kyphoscoliosis, severe. 4. Oropharyngeal dysphagia, possible. PLAN: I will continue her antibiotics, nebulized medications, and steroids. I am going to have [facility] do a formal swallow evaluation on her as she has now had 2 episodes of exacerbation of h er respiratory condition shortly following a meal. Dr. Villagran will resume care in the morning. If she decompensates, we will move her back down to the ICU and consider noninvasive therapy.
[2017-09-29] MEDS: Montelukast Sodium 10 mg Tablet PO SCH (20:49)
[2017-09-30] MEDS: Metoclopramide HCl 10 MG/2 ML VIAL IVP SCH ×3 (01:19→18:08)
[2017-09-30] MEDS: Budesonide 0.5 MG/2 ML NEB INH SCH ×2 (06:27→19:22)
[2017-09-30] MEDS: Amoxicillin/Potassium Clav 250 MG TAB PO SCH ×2 (08:25→20:50)
[2017-09-30] MEDS: predniSONE 20 MG TAB PO SCH (08:25)
[2017-09-30] MEDS: Enoxaparin Sodium 30 MG/0.3 ML SYRINGE SC SCH (08:26)
[2017-09-30] MEDS: Saccharomyces boulardii 250 MG CAP PO SCH (08:26)
[2017-09-30] MEDS: Lisinopril 10 MG TAB PO SCH (08:26)
[2017-09-30] MEDS: Docusate 100 MG CAP PO SCH ×2 (08:26→20:50)
[2017-09-30] MEDS: Diabetic Tussin 200 MG/10 ML UDCUP PO PRN ×3 (08:41→20:50)
--- NOTE | 2017-09-30 11:31 | PDOC.PN ---
- Subjective Encounter Start Date: 09/30/17 Encounter Start Time: 09:30 pt gets out of breath even with little effort, still has some wheezing, she is now on modified diet as per speech, - Objective Resuscitation Status: Resuscitation Status DNR:Do Not Resuscitate MAR Reviewed: Yes Vital Signs & Weight: Vital Signs (12 hours) Temp Pulse Resp BP BP Pulse Ox 09/30/17 10:25 85 24 H 96 09/30/17 08:26 155/87 H 09/30/17 08:00 97.6 F 105 H 18 96 09/30/17 07:46 97.6 F 105 H 18 155/87 H 96 09/30/17 06:27 91 20 95 09/30/17 04:22 98.6 F 87 20 170/71 H 97 09/30/17 02:34 94 20 95 09/29/17 23:46 99 F 94 22 H 137/78 95 Weight Admit Weight 99 lb 3.328 oz Weight 96 lb 3.2 oz Most Recent Monitor Data Heart Rate from ECG 119 NIBP 141/91 NIBP BP-Mean 112 Respiration from ECG 26 SpO2 99 I&O: 09/29/17 09/30/17 10/01/17 06:59 06:59 06:59 Intake Total 1200 1610 Output Total 1 Balance 1199 1610 Result Diagrams: 09/28/17 07:50 09/28/17 07:50 Additional Labs: Accuchecks 09/30/17 09/29/17 09/29/17 05:03 20:50 16:31 POC Glucose 148 H 288 H 255 H 09/29/17 11:26 POC Glucose 152 H Phys Exam - Physical Examination Constitutional: NAD HEENT: PERRLA, moist MMs, sclera anicteric Neck: no JVD, supple Respiratory: no rales, wheezing present Cardiovascular: RRR, no significant murmur, no rub Gastrointestinal: soft, non-tender, no distention, positive bowel sounds Musculoskeletal: no edema, pulses present Neurological: moves all 4 limbs Lymphatic: no nodes Psychiatric: normal affect Skin: no rash, normal turgor Dx/Plan (1) Acute asthmatic bronchitis Code(s): J45.909 - UNSPECIFIED ASTHMA, UNCOMPLICATED Status: Acute (2) Acute respiratory failure with hypoxia Code(s): J96.01 - ACUTE RESPIRATORY FAILURE WITH HYPOXIA Status: Resolved (3) Hyperglycemia, drug-induced Code(s): R73.9 - HYPERGLYCEMIA, UNSPECIFIED; T50.905A - ADVERSE EFFECT OF UNSP DRUG/MEDS/BIOL SUBST, INIT Status: Acute (4) Gastroparesis Code(s): K31.84 - GASTROPARESIS Status: Chronic (5) Intellectual disability Code(s): F79 - UNSPECIFIED INTELLECTUAL DISABILITIES Status: Chronic (6) Physical deconditioning Code(s): R53.81 - OTHER MALAISE Status: Chronic (7) Protein-calorie malnutrition, moderate Code(s): E44.0 - MODERATE PROTEIN-CALORIE MALNUTRITION Status: Chronic (8) Scoliosis Status: Chronic - Plan cont current plan of care, continue antibiotics, PT/OT, social media executive, respiratory therapy, out of bed/ambulate * on all oral meds * she has diarrhoea and c-diff antigen positive and toxin negative, will start oral vancomycin * continue current optimum medical therapy for asthma * her family does not want snu option and wanted to go home, she is at high risk for recurrent admission, will ask palliative care to talk about home hospice if they agree * expecting discharge tomorrow once diarrhoea get controlled. Review of Systems - Review of Systems Constitutional: weakness. negative: fever, chills, sweats, malaise, other Eyes: negative: Pain, Vision Change, Conjunctivae Inflammation, Eyelid Inflammation, Redness, Other ENT: negative: Ear Pain, Ear Discharge, Nose Pain, Nose Discharge, Nose Congestion, Mouth Pain, Mouth Swelling, Throat Pain, Throat Swelling, Other Respiratory: Cough, Shortness of Breath, SOB with Excertion, Wheezing. negative : Dry, Hemoptysis, Pleuritic Pain, Sputum Cardiovascular: negative: chest pain, palpitations, orthopnea, paroxysmal nocturnal dyspnea, edema, light headedness, other Gastrointestinal: Diarrhea. negative: Nausea, Vomiting, Abdominal Pain, Constipation, Melena, Hematochezia, Other Genitourinary: negative: Dysuria, Frequency, Incontinence, Hematuria, Retention , Other Musculoskeletal: negative: Neck Pain, Shoulder Pain, Arm Pain, Back Pain, Hand Pain, Leg Pain, Foot Pain, Other Other: not reliable due to her level of cognitive status - Medications/Allergies Allergies/Adverse Reactions: Allergies Allergy/AdvReac Type Severity Reaction Status Date / Time No Known Allergies Allergy Verified 09/22/17 17:27 Medications: Current Medications Acetaminophen (Tylenol) 650 mg PO Q4H PRN PRN Reason: Headache/Fever or Pain Last Admin: 09/26/17 12:26 Dose: 650 mg Al Hydroxide/Mg Hydroxide (Maalox) 30 ml PO Q6H PRN PRN Reason: Heartburn or Indigestion Albuterol/Ipratropium (Duoneb) 3 ml NEB [id number] SETH Last Admin: 09/30/17 10:25 Dose: 3 ml Albuterol/Ipratropium (Duoneb) 3 ml NEB [id number] PRN PRN Reason: SOB &/or Wheezing Last Admin: 09/24/17 07:15 Dose: 3 ml Amoxicillin/Clavulanate Potassium (Augmentin) 250 mg PO BID [facility] Stop: 10/01/17 09:01 Last Admin: 09/30/17 08:25 Dose: 250 mg Artificial Tears (Tears Naturale) 0 drop EA EYE PRN PRN PRN Reason: Dry Eyes Bisacodyl (Dulcolax) 10 mg [place] Q24H PRN PRN Reason: Constipation Budesonide (Pulmicort Neb Solution) 0.5 mg INH BID-RT [facility] Last Admin: 09/30/17 06:27 Dose: 0.5 mg Clonidine (Catapres) 0.1 mg PO Q4H PRN PRN Reason: Systolic BP > 180 Last Admin: 09/27/17 00:00 Dose: 0.1 mg Dextrose/Water (Dextrose 50%) 25 gm SLOW IVP PRN PRN PRN Reason: Hypoglycemia Diltiazem HCl (Cardizem) 30 mg PO ACHS [facility] Last Admin: 09/30/17 08:25 Dose: 30 mg Docusate Sodium (Colace) 100 mg PO BID [facility] Last Admin: 09/30/17 08:26 Dose: Not Given Enoxaparin Sodium (Lovenox) 30 mg SC 0900 [facility] Last Admin: 09/30/17 08:26 Dose: 30 mg Glucagon (Glucagon) 1 mg IM PRN PRN PRN Reason: Hypoglycemia Guaifenesin (Robitussin Sf) 200 mg PO Q4H PRN PRN Reason: Cough Last Admin: 09/30/17 08:41 Dose: 200 mg Dextrose/Water (D5w) 1,000 mls @ 0 mls/hr IV .Q0M PRN; As Directed PRN Reason: Hypoglycemia Insulin Human Lispro (Humalog) 0 units SC .MODERATE SLIDING SC PRN PRN Reason: Moderate Correctional Scale Last Admin: 09/29/17 16:29 Dose: 6 unit Insulin Human Lispro (Humalog) 0 units SC .BEDTIME SLIDING SC PRN PRN Reason: Bedtime Correctional Scale Last Admin: 09/29/17 20:49 Dose: 3 unit Lisinopril (Zestril) 10 mg PO DAILY [facility] Last Admin: 09/30/17 08:26 Dose: 10 mg Loperamide HCl (Imodium) 2 mg PO PRN PRN PRN Reason: Diarrhea/Loose Stools Loratadine (Claritin) 10 mg PO DAILYPRN PRN PRN Reason: Sinus Symptoms Magnesium Hydroxide (Milk Of Magnesium) 30 ml PO DAILYPRN PRN PRN Reason: Constipation Metoclopramide HCl (Reglan) 10 mg IVP Q8H [facility] Last Admin: 09/30/17 08:27 Dose: 10 mg Mineral Oil/White Petrolatum (Eucerin Cream) 0 gm TOP BIDPRN PRN PRN Reason: Dry Skin Montelukast Sodium (Singulair) 10 mg PO QPM [facility] Last Admin: 09/29/17 20:49 Dose: 10 mg Pantoprazole Sodium (Protonix) 40 mg PO DAILY [facility] Last Admin: 09/30/17 08:26 Dose: 40 mg Phenol (Chloraseptic [place] 180 Ml Bot) 0 ml PO PRN PRN PRN Reason: Sore Throat Prednisone (Prednisone) 40 mg PO [facility] Stop: 10/01/17 08:01 Last Admin: 09/30/17 08:25 Dose: 40 mg Saccharomyces Boulardii (Florastor) 250 mg PO DAILY [facility] Last Admin: 09/30/17 08:26 Dose: 250 mg Senna (Senokot) 2 tab PO HSPRN PRN PRN Reason: Constipation Sodium Chloride ([place] Nasal [place] 0.65%) 0 ml EA NARE QIDPRN PRN PRN Reason: Nasal Congestion
[2017-09-30 13:45] VITALS: BMI 24.0
[2017-09-30] MEDS: Vancomycin HCl 25 MG/ML Oral PO SCH ×3 (14:01→20:50)
--- NOTE | 2017-09-30 15:54 | RAD ---
BARIUM SWALLOW WITH SPEECH THERAPY: HISTORY: Dysphagia oropharyngeal phase, R13.12; feeding difficulties, R63.3. COMPARISON: None. FINDINGS: The exam was performed with the speech pathologist. The speech pathologist administered thin and pud ding consistency contrast. There is low-grade pooling within the vallecula. Oropharyngeal phase is otherwise normal. There is no aspiration or penetration. IMPRESSION: 1. No aspiration or penetration. Fluoro time: 1.3 minutes POS: RA
[2017-09-30] MEDS: HumaLOG 300 UNITS/3 ML VIAL SC PRN (18:08)
[2017-09-30] MEDS: Montelukast Sodium 10 mg Tablet PO SCH (20:50)
[2017-10-01] MEDS: Metoclopramide HCl 10 MG/2 ML VIAL IVP SCH ×3 (01:41→16:43)
[2017-10-01] MEDS: Budesonide 0.5 MG/2 ML NEB INH SCH (06:23)
--- NOTE | 2017-10-01 07:19 | DIS ---
PRIMARY CARE PHYSICIAN: Ami Avelar M.D. DATE OF ADMISSION: 09/22/2017 DATE OF DISCHARGE: 10/01/2017 DISCHARGE DISPOSITION: Home with home health/hospice. PRIMARY DISCHARGE DIAGNOSES: 1. Acute respiratory failure with hypoxia. 2. Acute asthmatic bronchitis. 3. Hyperglycemia due to steroid. SECONDARY DISCHARGE DIAGNOSES: Scoliosis, protein calorie malnutrition, chronic physical deconditioning, intellectual disability, gastroparesis, asthma. PRIMARY PROCEDURE/OPERATION: None. RADIOLOGICAL INVESTIGATION: The patient had chest x-ray, which was showing chronic changes. Modified barium swallow was done with speech therapy and based on that, Speech therapy recommended diet ground texture solid and mechanical soft texture solid with extra gravy thin liquid by cup. SIGNIFICANT LABORATORY DATA: WBC 11.8, hemoglobin 14.1, platelets 222. Sodium 145, potassium 4.2, BUN 23, creatinine 0.77, calcium 10.1, AST 54, ALT 44, alkaline phosphatase 94, albumin 4.4. Urinalysis suggestive of UTI. C. diff antigen positive, toxin negative. Blood culture negative. Influenza negative. DISCHARGE MEDICATIONS: Cardizem 30 mg p.o. a.c. and at bedtime, lisinopril 10 mg p.o. daily, Claritin 10 mg p.o. daily, Reglan 10 mg p.o. a.c. and at bedtime , Dulera two puff inhalation b.i.d., Singulair 10 mg p.o. daily, Protonix 40 mg p.o. daily, prednisone 40 mg p.o. daily for 7 days, Florastor 250 mg p.o. daily , vancomycin 125 mg p.o. q.i.d. for 14 days, Ventolin inhaler 2 puffs q.4 hourly p.r.n. CONTRAINDICATIONS: None. CODE STATUS: DNR. INPATIENT CONSULTANTS: Dr. Kevin and pulmonary group was following while in hospital. TEST RESULTS PENDING ON DISCHARGE: None. ALLERGIES: No known drug allergy. DISCHARGE PLAN: Post hospital, we are trying to discharge her home with home hospice. The patient's family member refused to go to snf home. If they are not accepting hospice option, then we will arrange home health. HOSPITAL COURSE: A 72-year-old female who was admitted by me on 09/22/2017. Please see my HPI for further details. The patient presented to emergency room with respiratory distress. She was having audible wheezing. She was not able to provide good history. She had acute hypoxic respiratory failure on admission. The patient was in respiratory distress. She required BiPAP in the emergency room, but she did not tolerate it well. Because of her severe tachycardia, tachypnea and respiratory distress, we admitted her to medical ICU. The patient was not tolerating BiPAP in the ICU and she was refusing to wear BiPAP and that is why she was given only nasal cannula and face mask oxygen. She was treated with Solu-Medrol, Singulair, DuoNebs and Pulmicort nebulization as well as Mucinex and empiric antibiotic therapy. The patient was fully and optimally treated for asthma exacerbation. She was also given magnesium sulfate. As patient was refusing BiPAP and that is why we transferred her to medical floor. Over there, the patient had a choking episode with food and she developed acute respiratory distress, again required ICU transfer. She was treated with BiPAP. She was DNR begin with and that is why she was not required any intubation. Upon stabilization, this patient was transferred back to [facility] and subsequently back to medical floor. Her tachycardia improved with the Cardizem. She was also evaluated by Speech Therapy while in hospital for her swallowing evaluation and based on that, the patient was getting mechanical soft texture diet with extra gravy. While in hospital, pulmonary group was following. Her prognosis was not good and that is why we consulted palliative care. Palliative care discussed with the patient about goal of care, but at this point we are still struggling for final discharge plan either half-way versus home with home hospice versus home with home health, that we will finalize today. The patient is seen and examined at bedside today. Please see my progress note from today for further detail. On discharge, we are changing to above- mentioned medication. She has finished the antibiotic course while in hospital. Because of antibiotic, the patient developed diarrhea and that was antigen positive, toxin negative for Clostridium difficile and that is why we decided to treat as if Clostridium difficile colitis with vancomycin upon discharge. All new medication prescription given. The patient is also given prednisone upon discharge. This patient's long-term prognosis is very poor and she is at high risk for recurrent admission. Please see my progress note from today for further detail. Total time spent on discharge day 31 minutes MTDD
[2017-10-01] MEDS: predniSONE 20 MG TAB PO SCH (08:58)
[2017-10-01] MEDS: Saccharomyces boulardii 250 MG CAP PO SCH (08:59)
[2017-10-01] MEDS: Enoxaparin Sodium 30 MG/0.3 ML SYRINGE SC SCH (08:59)
[2017-10-01] MEDS: Docusate 100 MG CAP PO SCH (08:59)
[2017-10-01] MEDS: Lisinopril 10 MG TAB PO SCH (08:59)
[2017-10-01] MEDS: Vancomycin HCl 25 MG/ML Oral PO SCH ×3 (08:59→16:41)
[2017-10-01] MEDS: Diabetic Tussin 200 MG/10 ML UDCUP PO PRN ×2 (09:07→16:41)
--- NOTE | 2017-10-01 09:29 | PDOC.PN ---
- Subjective Encounter Start Date: 10/01/17 Encounter Start Time: 08:40 Patient seen and examined. No new complaints. No overnight events - Objective Resuscitation Status: Resuscitation Status DNR:Do Not Resuscitate MAR Reviewed: Yes Vital Signs & Weight: Vital Signs (12 hours) Temp Pulse Resp BP BP Pulse Ox 10/01/17 08:59 160/88 H 10/01/17 07:25 98.4 F 97 20 160/88 H 99 10/01/17 06:23 82 16 100 10/01/17 05:24 98.6 F 88 20 164/82 H 93 L 10/01/17 02:31 89 12 96 10/01/17 00:00 97.6 F 89 18 123/85 99 09/30/17 22:13 108 H 16 100 Weight Admit Weight 99 lb 3.328 oz Weight 96 lb 3.2 oz Most Recent Monitor Data Heart Rate from ECG 119 NIBP 141/91 NIBP BP-Mean 112 Respiration from ECG 26 SpO2 99 I&O: 09/30/17 10/01/17 10/02/17 06:59 06:59 06:59 Intake Total 1610 1270 Balance 1610 1270 Result Diagrams: 09/28/17 07:50 09/28/17 07:50 Additional Labs: Accuchecks 10/01/17 09/30/17 09/30/17 05:18 20:34 16:36 POC Glucose 135 H 149 H 268 H 09/30/17 12:28 POC Glucose 143 H Phys Exam - Physical Examination Constitutional: NAD HEENT: PERRLA, moist MMs, sclera anicteric Neck: no JVD, supple Respiratory: no wheezing, no rales, no rhonchi severe scoliosis Cardiovascular: RRR, no significant murmur, no rub Gastrointestinal: soft, non-tender, no distention, positive bowel sounds Musculoskeletal: no edema, pulses present Neurological: non-focal, normal sensation Lymphatic: no nodes Psychiatric: normal affect Skin: no rash, normal turgor Dx/Plan (1) Acute asthmatic bronchitis Code(s): J45.909 - UNSPECIFIED ASTHMA, UNCOMPLICATED Status: Acute (2) Acute respiratory failure with hypoxia Code(s): J96.01 - ACUTE RESPIRATORY FAILURE WITH HYPOXIA Status: Resolved (3) Hyperglycemia, drug-induced Code(s): R73.9 - HYPERGLYCEMIA, UNSPECIFIED; T50.905A - ADVERSE EFFECT OF UNSP DRUG/MEDS/BIOL SUBST, INIT Status: Acute (4) Gastroparesis Code(s): K31.84 - GASTROPARESIS Status: Chronic (5) Intellectual disability Code(s): F79 - UNSPECIFIED INTELLECTUAL DISABILITIES Status: Chronic (6) Physical deconditioning Code(s): R53.81 - OTHER MALAISE Status: Chronic (7) Protein-calorie malnutrition, moderate Code(s): E44.0 - MODERATE PROTEIN-CALORIE MALNUTRITION Status: Chronic (8) Scoliosis Status: Chronic - Plan cont current plan of care, plan discussed w/ family, clinical social worker * i think this is her maximum improvement. * will see if she needs home oxygen or not, paper work done for that if needed * will try to arrange home hospice if possible * she does not want to go to [facility] * she is at high risk for readmission * but now to her baseline and ok to discharge * medication reviewed as below * symptomatic treatment * tolerating modified diet Review of Systems - Review of Systems ENT: negative: Ear Pain, Ear Discharge, Nose Pain, Nose Discharge, Nose Congestion, Mouth Pain, Mouth Swelling, Throat Pain, Throat Swelling, Other Respiratory: negative: Cough, Dry, Shortness of Breath, Hemoptysis, SOB with Excertion, Pleuritic Pain, Sputum, Wheezing Cardiovascular: negative: chest pain, palpitations, orthopnea, paroxysmal nocturnal dyspnea, edema, light headedness, other Gastrointestinal: negative: Nausea, Vomiting, Abdominal Pain, Diarrhea, Constipation, Melena, Hematochezia, Other Genitourinary: negative: Dysuria, Frequency, Incontinence, Hematuria, Retention , Other Musculoskeletal: negative: Neck Pain, Shoulder Pain, Arm Pain, Back Pain, Hand Pain, Leg Pain, Foot Pain, Other Skin: negative: Rash, Lesions, Jonas, Bruising, Other Other: not reliable due to level of cognitive status - Medications/Allergies Allergies/Adverse Reactions: Allergies Allergy/AdvReac Type Severity Reaction Status Date / Time No Known Allergies Allergy Verified 09/22/17 17:27 Medications: Current Medications Acetaminophen (Tylenol) 650 mg PO Q4H PRN PRN Reason: Headache/Fever or Pain Last Admin: 09/26/17 12:26 Dose: 650 mg Al Hydroxide/Mg Hydroxide (Maalox) 30 ml PO Q6H PRN PRN Reason: Heartburn or Indigestion Albuterol/Ipratropium (Duoneb) 3 ml NEB [id number] [facility] Last Admin: 10/01/17 06:25 Dose: 3 ml Albuterol/Ipratropium (Duoneb) 3 ml NEB [id number] PRN PRN Reason: SOB &/or Wheezing Last Admin: 09/24/17 07:15 Dose: 3 ml Artificial Tears (Tears Naturale) 0 drop EA EYE PRN PRN PRN Reason: Dry Eyes Bisacodyl (Dulcolax) 10 mg OR Q24H PRN PRN Reason: Constipation Budesonide (Pulmicort Neb Solution) 0.5 mg INH BID-RT [facility] Last Admin: 10/01/17 06:23 Dose: 0.5 mg Clonidine (Catapres) 0.1 mg PO Q4H PRN PRN Reason: Systolic BP > 180 Last Admin: 09/27/17 00:00 Dose: 0.1 mg Dextrose/Water (Dextrose 50%) 25 gm SLOW IVP PRN PRN PRN Reason: Hypoglycemia Diltiazem HCl (Cardizem) 30 mg PO ACHS [facility] Last Admin: 10/01/17 08:58 Dose: 30 mg Docusate Sodium (Colace) 100 mg PO BID [facility] Last Admin: 10/01/17 08:59 Dose: Not Given Enoxaparin Sodium (Lovenox) 30 mg SC 0900 [facility] Last Admin: 10/01/17 08:59 Dose: 30 mg Glucagon (Glucagon) 1 mg IM PRN PRN PRN Reason: Hypoglycemia Guaifenesin (Robitussin Sf) 200 mg PO Q4H PRN PRN Reason: Cough Last Admin: 10/01/17 09:07 Dose: 200 mg Dextrose/Water (D5w) 1,000 mls @ 0 mls/hr IV .Q0M PRN; As Directed PRN Reason: Hypoglycemia Insulin Human Lispro (Humalog) 0 units SC .MODERATE SLIDING SC PRN PRN Reason: Moderate Correctional Scale Last Admin: 09/30/17 18:08 Dose: 6 unit Insulin Human Lispro (Humalog) 0 units SC .BEDTIME SLIDING SC PRN PRN Reason: Bedtime Correctional Scale Last Admin: 09/29/17 20:49 Dose: 3 unit Lisinopril (Zestril) 10 mg PO DAILY [facility] Last Admin: 10/01/17 08:59 Dose: 10 mg Loperamide HCl (Imodium) 2 mg PO PRN PRN PRN Reason: Diarrhea/Loose Stools Loratadine (Claritin) 10 mg PO DAILYPRN PRN PRN Reason: Sinus Symptoms Magnesium Hydroxide (Milk Of Magnesium) 30 ml PO DAILYPRN PRN PRN Reason: Constipation Metoclopramide HCl (Reglan) 10 mg IVP Q8H [facility] Last Admin: 10/01/17 08:59 Dose: 10 mg Mineral Oil/White Petrolatum (Eucerin Cream) 0 gm TOP BIDPRN PRN PRN Reason: Dry Skin Montelukast Sodium (Singulair) 10 mg PO QPM [facility] Last Admin: 09/30/17 20:50 Dose: 10 mg Pantoprazole Sodium (Protonix) 40 mg PO DAILY [facility] Last Admin: 10/01/17 08:59 Dose: 40 mg Phenol (Chloraseptic Misenheimer 180 Ml Bot) 0 ml PO PRN PRN PRN Reason: Sore Throat Saccharomyces Boulardii (Florastor) 250 mg PO DAILY [facility] Last Admin: 10/01/17 08:59 Dose: 250 mg Senna (Senokot) 2 tab PO HSPRN PRN PRN Reason: Constipation Sodium Chloride ([place] Nasal Misenheimer 0.65%) 0 ml EA NARE QIDPRN PRN PRN Reason: Nasal Congestion Vancomycin HCl (First Vancomycin) 125 mg PO QID [facility] Last Admin: 10/01/17 08:59 Dose: 125 mg
[2017-10-01] MEDS: Amoxicillin/Potassium Clav 250 MG TAB PO SCH (09:56)
--- NOTE | 2017-10-01 14:05 | PRG ---
DATE OF SERVICE: 10/01/2017 SUBJECTIVE: She is in 443, awake, alert and responsive, no distress. PHYSICAL EXAMINATION: VITAL SIGNS: Sats 90% on 2 liters, respiratory rate 20, temperature 98, pulse 77, blood pressure 160/88. CHEST: Chest reveals decreased breath sounds, no wheezing. CARDIAC: Normal S1, S2, no gallops or mass. IMPRESSION: 1. Swollow study no aspiration. 2. End-stage chronic obstructive pulmonary disease, asthma, severe kyphoscoliosis. PLAN: She will be discharged to be followed by primary care physician. She will follow up with Dr. Kevin on outpatient basis. VICTORINA
[2017-10-01 16:49] VITALS: TEMP 98.2
[2017-10-01 19:15] VITALS: BP 113/68
== END 2017-10-01 18:42 | disposition home or self-care (01) | DRG 190 ==
LOC: ERS 12:33 → IMCU/EMU 17:15 → T4-B 09-23 14:38 → CCU 09-24 07:49 → IMCU/EMU 09-24 14:16 → T4-A 09-27 14:18
PROVIDERS: ADMIT Internal Medicine; ATTEND Internal Medicine
PROC: BD1BYZZ Fluoroscopy of Mouth/Oropharynx using Other Contrast (ICD-10-PCS; principal; 2017-09-30)
DX: J44.1 Chronic obstructive pulmonary disease with (acute) exacerbation (principal); J96.21 Acute and chronic respiratory failure with hypoxia; J18.9 Pneumonia, unspecified organism; J45.901 Unspecified asthma with (acute) exacerbation; E44.0 Moderate protein-calorie malnutrition; E87.2 Acidosis; J44.0 Chronic obstructive pulmonary disease with (acute) lower respiratory infection; T50.905A Adverse effect of unspecified drugs, medicaments and biological substances, initial encounter; Y92.239 Unspecified place in hospital as the place of occurrence of the external cause; K31.84 Gastroparesis; M41.9 Scoliosis, unspecified; F79 Unspecified intellectual disabilities; J20.9 Acute bronchitis, unspecified; R00.0 Tachycardia, unspecified; T17.928A Food in respiratory tract, part unspecified causing other injury, initial encounter; Z66 Do not resuscitate; K21.9 Gastro-esophageal reflux disease without esophagitis; E11.65 Type 2 diabetes mellitus with hyperglycemia
CPT/HCPCS: 36415; 36416; 71045; 74230; 80053; 81001; 82330; 82803; 85025; 87324; 87449; 87493; 87804; 90471; 90670; 93005; 94640; 94644; 94660; 94667; 94668; 96365; 96366; 96367; C9113; G0009; G8978-GP-CJ; G8979-GP-CH; G8996-GN-CJ; G8996-GN-CK; G8996-GN-CM; G8997-GN-CJ; G8997-GN-CL; J0456; J0696; J1650; J2765; J2920; J3475; J7050; J7506; J7611; J7620; J7626

== ENCOUNTER 2017-10-02 19:54 | Inpatient (IN) | payer MEDICARE, MEDICAID ==
[~2017-10-02 19:54] MED LIST: ISOVUE-370 76%-LOCM 1 ML ONE
[2017-10-03] MEDS ORDERED: Piperacillin/Tazobactam 4.5 GM VIAL ONE (03:15)
[2017-10-03] MEDS ORDERED: Sodium Chloride 0.9% 1,000 ML IV SCH (04:20)
[2017-10-03] MEDS ORDERED: Ondansetron ODT 4 MG TAB SL PRN (04:20)
[2017-10-03] MEDS ORDERED: Ondansetron HCl/PF 4 MG/2 ML Vial IVP PRN (04:20)
[2017-10-03] MEDS ORDERED: Ondansetron ODT 4 MG TAB PO PRN (07:49)
[2017-10-03] MEDS ORDERED: Acetaminophen 325 MG TAB PO PRN (07:49)
[2017-10-03] MEDS: Azithromycin 500 MG in Sodium Chloride 0.9% 250 ML 250 ML IVPB SCH (08:28)
--- NOTE | 2017-10-03 08:45 | HP ---
PRIMARY CARE PROVIDER: Dr. Avelar CHIEF COMPLAINT: Referred to [facility] Hospitalist Service by [facility] after knight sfer from [place] [facility]. HISTORY OF PRESENT ILLNESS: The patient has marked intellectual disability and is unable to answer q uestions. There is a sister with her who is a very poor historian and states that another sister who has power of medical billing and coding instructor will be here. The patient states she is doing okay. The sister states she lobo s been short of breath for about a month, cough for about a month. No fever or chills. No pain. Th e sister was not sure she had been in the hospital anywhere inpatient, although she did say that she had been in the [place] [facility] 1 day. Records indicated she has been recently discharged fr [facility] and there was no information about that under her medical record number. Afte r I had finished doing the exam and getting orders put in, I was able to find out that she has [address] numbers and reviewed those. She was in the hospital here from 09/22/2017 to 10/01/2017 on the [facility] Hospitalist Service and seen at that time by Pulmonary. She has severe kyphoscoliosis, chronic re spiratory failure and was discharged for hospice care. Responsible parties caring for this patient h ave not been located at this point. PAST MEDICAL HISTORY: Pertinent for recent hospitalization for COPD, asthma, acute on chronic respir atory failure, scoliosis, intellectual disability. According to the sister with her, she has no othe r chronic medical problems. CURRENT MEDICATIONS: Her current medications that she was discharged on according to family have not been filled. She was discharged on Cardizem 300 mg, lisinopril 10 mg, Reglan 10 mg a.c. and at bedt omer, Dulera 2 puffs b.i.d., Singulair 10 mg a day, prednisone 40 mg a day for 7 days, Florastor daily , vancomycin 125 mg p.o. for 14 days, Ventolin inhaler 2 puffs q.4 p.r.n. ALLERGIES: No known medical allergies. SURGICAL HISTORY: None. FAMILY HISTORY: She had multiple siblings with diabetes, none with heart disease or scoliosis. SOCIAL HISTORY: Patient is single, never smoked. No alcohol. REVIEW OF SYSTEMS: Really not obtainable from the patient or the sibling. The patient's mental stat us does not allow review of systems and the sister just states to me she does not know. PHYSICAL EXAMINATION: VITAL SIGNS: Pulse 102, respirations 20, O2 sat 98 on 2 liters nasal cannula, blood pressure 176/107 , temperature 97.7. GENERAL: The patient is awake and states she is okay. HEENT: Pupils equal, round, and reactive. Extraocular movements grossly intact. Sclerae white. Mo uth, I could not get her to open it. Nasal mucosa is normal. NECK: She has an extremely short neck due to her kyphoscoliosis. I was not able to palpate any node s or thyromegaly. CHEST: Chest is contorted. She has rales in the right upper lobe, left lower lobe. HEART: Regular rate and rhythm. First and second heart sounds were clear. There is a 2/6 systolic murmur. ABDOMEN: Soft, bowel sounds are normal. There is no hepatosplenomegaly, no mass, no rebound. EXTREMITIES: Reveal 1+ edema, no cyanosis or clubbing. SKIN: Warm and dry without bruises or rash. HEME/LYMPH: No palpable lymphadenopathy in axilla, inguinal, or cervical area. PULSES: Carotid, radial, and femoral pulses palpable. Pedal pulses diminished. NEUROLOGIC: Cranial nerves II-XII are intact. Deep tendon reflexes were really difficult. She did move all extremities and toes were downgoing. LABORATORY: Laboratory done in [facility]; white cell count elevated at 12 with an absolute adan trophilia, hemoglobin 15.7, platelet count 176,000. Troponin was normal. CK-MB was mildly elevated, sodium 143, potassium 4.1, CO2 29, BUN 18, creatinine 0.69, blood sugar 163. Liver function panel, mild elevations AST and ALT of 53 and 62. CK was 312. CT scan revealed focal consolidation left low er lobe and right upper lobe. Laboratory done here reveals a normal lactic acid. ADMITTING DIAGNOSES: 1. Apparent pneumonia. 2. Acute on chronic respiratory failure. 3. Scoliosis. 4. Intellectual disability. 5. Chronic obstructive pulmonary disease/asthma. 6. Hypertension. PLAN: Currently, cultures have been sent. Antibiotics have been started. The patient is on O2. We will consult Palliative Care to try to get the family together to decide what has happened since she was apparently discharge DNR on hospice. It is pertinent that because of her condition I had put in admitting inpatient orders for pneumonia and respiratory failure before I found the second medical r ecord number and reviewed her recent hospitalization. This has been a very difficult admission.
[2017-10-03 08:50] LABS: ALT (SGPT) 49 U/L (8-55); AST (SGOT) 38 U/L (5-34); Albumin 3.6 g/dL (3.4-4.8); Alkaline Phosphatase 67 U/L (40-150); Anion Gap 10 mmol/L (10-20); BUN (Urea Nitrogen) 13 mg/dL (9.8-20.1); Bilirubin, Total 0.7 mg/dL (0.2-1.2); Calc. Creatinine Clearance 56 mL/min (70-130); Calcium 8.8 mg/dL (7.8-10.44); Carbon Dioxide 32 mmol/L (23-31); Chloride 105 mmol/L (98-107); Estimated GFR-MDRD Greater than 90; Globulin 2.9 g/dL (2.4-3.5); Glucose 116 mg/dL (83-110); Potassium 4.1 mmol/L (3.5-5.1); Protein, Total 6.5 g/dL (6.0-8.3); Sodium 143 mmol/L (136-145)
[2017-10-03] MEDS ORDERED: Piperacillin/Tazobactam 4.5 GM in Sodium Chloride 0.9% 100 ML IVPB SCH (09:00)
[2017-10-03 09:03] LABS: Hemoglobin 13.2 g/dL (12.0-16.0); Mean Corpuscular HGB CONC 32.8 g/dL (32.0-36.0); Mean Corpuscular Hemoglobin 32.4 pg (27.0-31.0); Mean Corpuscular Volume 98.9 fL (78.0-98.0); Mean Platelet Volume 7.3 fL (7.4-10.4); Platelet Count 179 thou/uL (130-400); RBC Distribution Width 11.3 % (11.5-14.5); Red Blood Cell (RBC) Count 4.06 mill/uL (4.20-5.40); White Blood Cell (WBC) Count 10.7 thou/uL (4.8-10.8)
[2017-10-03 09:22] LABS: Band 2 % (5-11); Eosinophils 1 % (0-10); Lymphocytes 12 % (21-51); MDiff Complete? YES; Monocytes 5 % (0-10); Neutrophil 79 % (42-75); PLT Morphology Comment Appears Adequate; Promyelocytes 1 % (0-0); RBC Morphology Normal; Vacuoles SLIGHT
--- NOTE | 2017-10-03 09:26 | CT ---
PRELIMINARY REPORT/[facility]/EMERGENTY AFTER-HOURS PROCEDURE CT Angiography Chest With Intravenous Contrast CLINICAL HISTORY: 72 years old, female; Signs and symptoms; Dyspnea; Patient HX: R/O pe TECHNIQUE: Axial computed tomographic angiography images of the chest with intravenous contrast using pulmonary embolism protocol. MIP reconstructed images were created and reviewed. COMPARISON: No relevant prior studies available. FINDINGS: Exam limited by advanced scoliosis. Pulmonary arteries: No acute findings. No pulmonary embolism. Aorta: No acute findings. No thoracic aortic aneurysm. Lungs: Focal consolidation left lower lobe dorsally and right upper lobe consistent with atelectasis versus infiltrates. Pleural space: Small left pleural effusion. No pneumothorax. Heart: No acute findings. No cardiomegaly. No significant pericardial effusion. No evidence of RV dys function. Bones/joints: Advanced upper thoracic rotary levoscoliosis with compensatory lower thoracic dextrosco liosis. No acute fracture. No dislocation. Soft tissues: No acute findings. Lymph nodes: No acute findings. No enlarged lymph nodes. Upper abdomen: Bilateral renal cysts, largest measuring 6 cm right upper pole. IMPRESSION: Exam limited by advanced scoliosis. No visible pulmonary embolism within these limits. Focal consolidation left lower lobe dorsally and right upper lobe consistent with atelectasis versus infiltrates. Small left pleural effusion. Thank you for allowing us to participate in the care of your patient. Dictated and Authenticated by: Sumaya Contreras MD 10/03/2017 2:55 AM Central Time ([place] & [place]) FINAL REPORT CTA CHEST WITH CONTRAST: HISTORY: Dyspnea. COMPARISON: None. FINDINGS: CT angiogram chest performed after the intravenous administration of contrast. Three-D rendering was provided. Findings and impression are concordant with the preliminary report. POS: [facility]
[2017-10-03] MEDS: cefTRIAXone\\ROCEPHIN 1 GM in Sodium Chloride 0.9% 100 ML IVPB SCH (10:24)
[2017-10-03 10:25] LABS: Actual Bicarbonate (HCO3a) 28.1 mEq/L (22-28); Base Excess (BEa) 2.3 mEq/L (-2.0 to +3.0); CO2 Tension 48.8 mmHg (35.0-45.0); Hemoglobin (Hb) 12.1 g/dL (12.0-16.0); pH, Arterial 7.38 (7.35-7.45)
[2017-10-03 10:26] LABS: Calcium, Ionized 1.1 mmol/L (1.12-1.30); Puncture Site LRA
[2017-10-03] MEDS ORDERED: hydrALAZINE 20 MG/ML VIAL SLOW IVP PRN (23:13)
[2017-10-03] MEDS ORDERED: Labetalol HCl 100 MG/20 ML VIAL SLOW IVP PRN (23:13)
[2017-10-03] MEDS ORDERED: Nitroglycerin 2% Ointment 1 INCH/1 GM Packet TOP PRN (23:13)
[2017-10-04] MEDS: cefTRIAXone\\ROCEPHIN 1 GM in Sodium Chloride 0.9% 100 ML IVPB SCH (08:27)
--- NOTE | 2017-10-04 14:35 | PDOC.PN ---
- Subjective Encounter Start Date: 10/04/17 Encounter Start Time: 09:30 Subjective: pt up in bed no complains - Objective Resuscitation Status: Resuscitation Status DNR:Do Not Resuscitate Vital Signs & Weight: Vital Signs (12 hours) Temp Pulse Resp BP Pulse Ox Pulse Ox 10/04/17 08:45 100 10/04/17 08:30 98.6 F 95 18 119/71 98 10/04/17 08:00 98.6 F 95 18 97 10/04/17 04:35 98.9 F 107 H 16 103/69 97 Weight Admit Weight 106 lb 14.4 oz Weight 106 lb 14.4 oz I&O: 10/03/17 10/04/17 10/05/17 06:59 06:59 06:59 Intake Total 2650 Balance 2650 Result Diagrams: 10/03/17 08:19 10/03/17 08:19 Phys Exam - Physical Examination HEENT: PERRLA, moist MMs, sclera anicteric, TM's clear, oral pharynx no lesions , 2+ tonsils Neck: no nodes, no JVD, supple, full ROM Respiratory: no wheezing, no rales, no rhonchi, wheezing present, clear to auscultation bilateral Cardiovascular: RRR, no significant murmur, no rub, gallop, irregular Gastrointestinal: soft, non-tender, no distention, positive bowel sounds Musculoskeletal: no edema, pulses present, edema present Dx/Plan (1) Acute respiratory failure with hypoxia Code(s): J96.01 - ACUTE RESPIRATORY FAILURE WITH HYPOXIA Status: Acute (2) Pneumonia Code(s): J18.9 - PNEUMONIA, UNSPECIFIED ORGANISM Status: Acute (3) Asthma Code(s): J45.909 - UNSPECIFIED ASTHMA, UNCOMPLICATED Status: Acute - Plan pt resting comfortably -: pt's sister states that she was out of her oxygen? -: will check procalcitonin since no elevated wbc lab * . Review of Systems - Review of Systems ENT: negative: Ear Pain, Ear Discharge, Nose Pain, Nose Discharge, Nose Congestion, Mouth Pain, Mouth Swelling, Throat Pain, Throat Swelling, Other Respiratory: negative: Cough, Dry, Shortness of Breath, Hemoptysis, SOB with Excertion, Pleuritic Pain, Sputum, Wheezing Cardiovascular: negative: chest pain, palpitations, orthopnea, paroxysmal nocturnal dyspnea, edema, light headedness, other - Medications/Allergies Allergies/Adverse Reactions: Allergies Allergy/AdvReac Type Severity Reaction Status Date / Time No Known Allergies Allergy Verified 10/03/17 06:00 Medications: Current Medications Acetaminophen (Tylenol) 650 mg PO Q4H PRN PRN Reason: Headache/Fever or Pain Hydralazine HCl (Apresoline) 10 mg SLOW IVP Q4H PRN PRN Reason: SBP Greater Than 180 Last Admin: 10/04/17 00:02 Dose: 10 mg Ceftriaxone Sodium 1 gm/ (Sodium Chloride) 100 mls @ 200 mls/hr IVPB Q24HR [facility] Last Admin: 10/04/17 08:27 Dose: 100 mls Azithromycin 500 mg/ Sodium (Chloride) 250 mls @ 250 mls/hr IVPB 1500 SETH Labetalol HCl (Normodyne) 10 mg SLOW IVP Q4H PRN PRN Reason: Systolic BP > 180 Nitroglycerin (Nitro-Bid 2% Ointment) 0.5 inch TOP Q8H PRN PRN Reason: SBP Greater Than 180 Ondansetron HCl (Zofran Odt) 4 mg PO Q6H PRN PRN Reason: Nausea/Vomiting Sodium Chloride (Flush - Normal Saline) 10 ml IVF Q12HR [facility] Last Admin: 10/04/17 08:29 Dose: 10 ml Sodium Chloride (Flush - Normal Saline) 10 ml IVF PRN PRN PRN Reason: Saline Flush
[2017-10-04] MEDS ORDERED: Azithromycin 500 MG in Sodium Chloride 0.9% 250 ML 250 ML IVPB SCH (15:00)
[2017-10-04] MEDS: Azithromycin 500 MG in Sodium Chloride 0.9% 250 ML 250 ML IVPB SCH (15:21)
[2017-10-05 07:02] VITALS: BMI 21.2
[2017-10-05] MEDS: cefTRIAXone\\ROCEPHIN 1 GM in Sodium Chloride 0.9% 100 ML IVPB SCH (07:35)
--- NOTE | 2017-10-05 15:20 | PDOC.PN ---
- Subjective Encounter Start Date: 10/05/17 Encounter Start Time: 10:00 Subjective: pt up in chair no complains - Objective Resuscitation Status: Resuscitation Status FULL:Full Resuscitation Vital Signs & Weight: Vital Signs (12 hours) Temp Pulse Resp BP Pulse Ox 10/05/17 11:00 97.4 F L 96 16 157/85 H 95 10/05/17 08:00 97.9 F 97 16 10/05/17 07:29 97.9 F 97 16 172/92 H 96 10/05/17 04:12 98.6 F 87 16 115/67 98 Weight Admit Weight 106 lb 14.4 oz Weight 108 lb 3.2 oz I&O: 10/04/17 10/05/17 10/06/17 06:59 06:59 06:59 Intake Total 2650 200 Balance 2650 200 Result Diagrams: 10/03/17 08:19 10/03/17 08:19 Phys Exam - Physical Examination HEENT: PERRLA, moist MMs, sclera anicteric, TM's clear, oral pharynx no lesions , 2+ tonsils Neck: no nodes, no JVD, supple, full ROM Respiratory: no wheezing, no rales, no rhonchi, wheezing present, clear to auscultation bilateral Cardiovascular: RRR, no significant murmur, no rub, gallop, irregular Gastrointestinal: soft, non-tender, no distention, positive bowel sounds Dx/Plan (1) Acute respiratory failure with hypoxia Code(s): J96.01 - ACUTE RESPIRATORY FAILURE WITH HYPOXIA Status: Acute (2) Pneumonia Code(s): J18.9 - PNEUMONIA, UNSPECIFIED ORGANISM Status: Acute (3) Asthma Code(s): J45.909 - UNSPECIFIED ASTHMA, UNCOMPLICATED Status: Acute - Plan spoke with POA and granddaughter per poA who wants full resuscitation -: The family had no clue about hospice and does not want hospice but wants -: home health. Procalcitonin is low will discontinue abx in cristino. -: After talking to granddaughter what seems like is she did not have -: the right type of oxygen that would supplement her all the time. * . family wants pt to go to [facility] Review of Systems - Review of Systems Other: denies any complains - Medications/Allergies Allergies/Adverse Reactions: Allergies Allergy/AdvReac Type Severity Reaction Status Date / Time No Known Allergies Allergy Verified 10/03/17 06:00 Medications: Current Medications Acetaminophen (Tylenol) 650 mg PO Q4H PRN PRN Reason: Headache/Fever or Pain Hydralazine HCl (Apresoline) 10 mg SLOW IVP Q4H PRN PRN Reason: SBP Greater Than 180 Last Admin: 10/04/17 00:02 Dose: 10 mg Levofloxacin 500 mg/ Device 100 mls @ 100 mls/hr IVPB 0900 [facility] Labetalol HCl (Normodyne) 10 mg SLOW IVP Q4H PRN PRN Reason: Systolic BP > 180 Nitroglycerin (Nitro-Bid 2% Ointment) 0.5 inch TOP Q8H PRN PRN Reason: SBP Greater Than 180 Sodium Chloride (Flush - Normal Saline) 10 ml IVF Q12HR SETH Last Admin: 10/05/17 07:35 Dose: 10 ml Sodium Chloride (Flush - Normal Saline) 10 ml IVF PRN PRN PRN Reason: Saline Flush
[2017-10-06] MEDS ORDERED: PROVENTIL INHALER 6.7 G (200 INHALATIONS) INH PRN (18:55)
[2017-10-06] MEDS ORDERED: Loratadine 10 MG TAB PO PRN (18:55)
--- NOTE | 2017-10-06 19:03 | PDOC.PN ---
- Subjective Encounter Start Date: 10/06/17 Encounter Start Time: 11:45 Subjective: pt up in bed no complains - Objective Resuscitation Status: Resuscitation Status FULL:Full Resuscitation Vital Signs & Weight: Vital Signs (12 hours) Temp Pulse Resp BP Pulse Ox 10/06/17 16:27 98.2 F 105 H 16 148/86 H 94 L 10/06/17 11:06 98.3 F 109 H 20 142/89 H 94 L 10/06/17 08:00 97.4 F L 101 H 16 96 10/06/17 07:19 97.4 F L 101 H 16 139/86 97 Weight Admit Weight 106 lb 14.4 oz Weight 108 lb 3.2 oz I&O: 10/05/17 10/06/17 10/07/17 06:59 06:59 06:59 Intake Total 800 720 Balance 800 720 Result Diagrams: 10/03/17 08:19 10/03/17 08:19 Phys Exam - Physical Examination HEENT: PERRLA, moist MMs, sclera anicteric, TM's clear, oral pharynx no lesions , 2+ tonsils Neck: no nodes, no JVD, supple, full ROM Respiratory: no wheezing, no rales, no rhonchi, wheezing present, clear to auscultation bilateral Cardiovascular: RRR, no significant murmur, no rub, gallop, irregular Gastrointestinal: soft, non-tender, no distention, positive bowel sounds Dx/Plan (1) Acute respiratory failure with hypoxia Code(s): J96.01 - ACUTE RESPIRATORY FAILURE WITH HYPOXIA Status: Acute (2) Pneumonia Code(s): J18.9 - PNEUMONIA, UNSPECIFIED ORGANISM Status: Acute (3) Asthma Code(s): J45.909 - UNSPECIFIED ASTHMA, UNCOMPLICATED Status: Acute - Plan pt was recently tx with abx, will stop abx today -: ? was on vanco oral will ask family -: will continue home meds -: possible placement in am * . Review of Systems - Review of Systems Other: unable to perform - Medications/Allergies Allergies/Adverse Reactions: Allergies Allergy/AdvReac Type Severity Reaction Status Date / Time No Known Allergies Allergy Verified 10/03/17 06:00 Medications: Current Medications Acetaminophen (Tylenol) 650 mg PO Q4H PRN PRN Reason: Headache/Fever or Pain Albuterol Sulfate (Proventil Hfa) 2 puff INH Q4HR PRN PRN Reason: SOB &/or Wheezing Diltiazem HCl (Cardizem) 30 mg PO DAILY [facility] Diltiazem HCl (Cardizem) 30 mg PO NOW [facility] Stop: 10/06/17 21:00 Hydralazine HCl (Apresoline) 10 mg SLOW IVP Q4H PRN PRN Reason: SBP Greater Than 180 Last Admin: 10/04/17 00:02 Dose: 10 mg Labetalol HCl (Normodyne) 10 mg SLOW IVP Q4H PRN PRN Reason: Systolic BP > 180 Lisinopril (Zestril) 10 mg PO DAILY [facility] Loratadine (Claritin) 10 mg PO DAILY PRN PRN Reason: Allergies Metoclopramide HCl (Reglan) 10 mg PO ACHS [facility] Mometasone Furoate/Formoterol Fumar (Dulera 200 Mcg/5 Mcg Inhaler) 2 puff INH BID-RT [facility] Montelukast Sodium (Singulair) 10 mg PO QPM [facility] Nitroglycerin (Nitro-Bid 2% Ointment) 0.5 inch TOP Q8H PRN PRN Reason: SBP Greater Than 180 Pantoprazole Sodium (Protonix) 40 mg PO DAILY [facility] Prednisone (Prednisone) 20 mg PO DAILY [facility] Saccharomyces Boulardii (Florastor) 250 mg PO DAILY [facility] Sodium Chloride (Flush - Normal Saline) 10 ml IVF Q12HR [facility] Last Admin: 10/06/17 07:35 Dose: 10 ml Sodium Chloride (Flush - Normal Saline) 10 ml IVF PRN PRN PRN Reason: Saline Flush
[2017-10-06] MEDS: Montelukast Sodium 10 mg Tablet PO SCH (19:13)
[2017-10-06] MEDS: Metoclopramide HCl 10 MG TAB PO SCH (19:13)
[2017-10-07] MEDS: Mometasone/Formoterol 120 PUFF INHALER INH SCH ×2 (06:33→19:47)
[2017-10-07] MEDS: Metoclopramide HCl 10 MG TAB PO SCH ×4 (07:48→19:33)
[2017-10-07] MEDS: Saccharomyces boulardii 250 MG CAP PO SCH (07:48)
[2017-10-07] MEDS: Lisinopril 10 MG TAB PO SCH (07:49)
[2017-10-07] MEDS ORDERED: predniSONE 20 MG TAB PO SCH ×2 (09:00)
[2017-10-07] MEDS: Ipratropium Bromide 2.5 ml Neb NEB SCH ×4 (10:14→22:56)
[2017-10-07] MEDS: Vancomycin HCl 25 MG/ML Oral PO SCH ×3 (14:50→19:34)
--- NOTE | 2017-10-07 16:17 | PQF ---
CLINICAL DOCUMENTATION IMPROVEMENT CLARIFICATION FORM: ICD-10 Updated PLEASE DO AN ADDENDUM TO THE PROGRESS NOTE WITH ANY DOCUMENTATION UPDATES OR ADDITIONS AND CARRY THROUGH TO DC SUMMARY. THANK YOU. DATE: 10/07/17 ATTN: Dr. Bran Please exercise your independent, professional judgment in responding to the clarification form. Clinical indicators are provided on the bottom of this form for your review Please check appropriate box(s): [ ] Aspiration Pneumonia [ ] Empirically treating Gram Negative Pneumonia [ ] Empirically treating Anaerobic Pneumonia [ ] Pneumonia secondary to [ ] Simple Pneumonia (community acquired - nosocomial) [ ] Pneumonia of unknown etiology [ ] Other diagnosis [ x] Unable to determine In addition, please specify: Present on Admission (POA): [ ] Yes [ x ] No [ ] Unable to determine For continuity of documentation, please document condition throughout progress notes and discharge summary. Thank You. CLINICAL INDICATORS - SIGNS / SYMPTOMS / LABS H&P 10/03: SHE WAS IN THE HOSPITAL HERE FROM 09/22 TO 10/01/17. CT SCAN REVEALED FOCAL CONSOLIDATION L LL AND R UL. APPARENT PNEUMONIA. RISKS: H&P 10/03: RECENT HOSPITALIZATION FOR COPD, ASTHMA, ACUTE ON CHRONIC RESP. FAILURE, SCOLIOSIS, INTELLECTUAL DISABILITY TREATMENT: ER RECORD: IV ZOSYN 4.5 G CPOE 10/03: IV ROCEPHIN. DC'D 10/05 CPOE 10/05: LEVAQUIN 500 MG IV . DC'D 10/06/17 CPOE 10/07: VANCOMYCIN HCL 125 MG PO QID Thank you, Trish (This form is maintained as a part of the permanent medical record) 2014 [employer]. All Rights Reserved Trish Ashby RN, BSN [email or web address] Office: [phone] pt had two medical record. she was recently tx for pna 10/01. She comes in for hypoxia and we initially tx her for pna but after finding her second MR number and procalcitonin was normal we concluded no pneumonia. MTDD
[2017-10-07] MEDS ORDERED: Sodium Chloride 0.9% 500 ML IV SCH (18:15)
[2017-10-07 18:46] LABS: Hemoglobin 12.9 g/dL (12.0-16.0); Mean Corpuscular Hemoglobin 32.4 pg (27.0-31.0); Mean Corpuscular Volume 98.2 fL (78.0-98.0); Mean Platelet Volume 7.9 fL (7.4-10.4); Platelet Count 188 thou/uL (130-400); RBC Distribution Width 11.7 % (11.5-14.5); Red Blood Cell (RBC) Count 3.98 mill/uL (4.20-5.40); White Blood Cell (WBC) Count 8.6 thou/uL (4.8-10.8)
[2017-10-07 18:56] LABS: Anion Gap 13 mmol/L (10-20); BUN (Urea Nitrogen) 15 mg/dL (9.8-20.1); Calc. Creatinine Clearance 49 mL/min (70-130); Calcium 9.4 mg/dL (7.8-10.44); Carbon Dioxide 25 mmol/L (23-31); Chloride 104 mmol/L (98-107); Estimated GFR-MDRD 83; Glucose 304 mg/dL (83-110); Potassium 4.9 mmol/L (3.5-5.1); Sodium 137 mmol/L (136-145)
[2017-10-07 19:01] LABS: Band 2 % (5-11); Lymphocytes 4 % (21-51); MDiff Complete? YES; Monocytes 5 % (0-10); Neutrophil 89 % (42-75); PLT Morphology Comment Appears Adequate; RBC Morphology Normal; Vacuoles SLIGHT
[2017-10-07] MEDS: Montelukast Sodium 10 mg Tablet PO SCH (19:33)
[2017-10-07] MEDS: Famotidine 20 MG TAB PO SCH (19:33)
[2017-10-08 01:05] LABS: Bilirubin Negative (Negative); Blood, Urine Negative (Negative); Clarity CLEAR (Clear); Glucose, Urine (Dipstick) Negative (Negative); Leukocyte Negative (Negative); Nitrite Negative (Negative); Protein, Urine (Dipstick) Negative (Neg-Trace); Specific Gravity, Urine 1.018 (1.002-1.036); Urobilinogen 0.2 mg/dL (0.2-1.0)
[2017-10-08] MEDS: Ipratropium Bromide 2.5 ml Neb NEB SCH ×5 (03:21→19:55)
[2017-10-08] MEDS: Mometasone/Formoterol 120 PUFF INHALER INH SCH ×2 (07:13→19:54)
[2017-10-08] MEDS ORDERED: predniSONE 20 MG TAB PO SCH ×2 (08:00)
[2017-10-08] MEDS: Vancomycin HCl 25 MG/ML Oral PO SCH ×4 (08:37→19:59)
[2017-10-08] MEDS: Metoclopramide 10 MG/10 ML UDCUP PO SCH ×3 (08:38→19:59)
[2017-10-08] MEDS: Famotidine 20 MG TAB PO SCH ×2 (08:39→19:59)
[2017-10-08] MEDS: Lisinopril 10 MG TAB PO SCH (08:40)
[2017-10-08] MEDS: Saccharomyces boulardii 250 MG CAP PO SCH (08:40)
--- NOTE | 2017-10-08 14:36 | PDOC.PN ---
- Objective Resuscitation Status: Resuscitation Status FULL:Full Resuscitation Vital Signs & Weight: Vital Signs (12 hours) Temp Pulse Resp BP BP BP Pulse Ox 10/08/17 14:25 105 H 16 93 L 10/08/17 12:14 98.5 F 94 20 121/77 97 10/08/17 11:24 94 16 94 L 10/08/17 08:40 133/72 10/08/17 08:10 98 10/08/17 08:00 99.1 F 113 H 20 98 10/08/17 07:32 99.1 F 113 H 20 133/72 98 10/08/17 07:13 98 10/08/17 07:09 100 20 98 10/08/17 04:00 98.5 F 114 H 22 H 124/73 94 L 10/08/17 03:21 92 L Weight Admit Weight 106 lb 14.4 oz Weight 108 lb 3.2 oz I&O: 10/07/17 10/08/17 10/09/17 06:59 06:59 06:59 Intake Total 720 350 Output Total 300 Balance 720 50 Result Diagrams: 10/07/17 18:28 10/07/17 18:28 Dx/Plan (1) Acute respiratory failure with hypoxia Code(s): J96.01 - ACUTE RESPIRATORY FAILURE WITH HYPOXIA Status: Acute (2) Pneumonia Code(s): J18.9 - PNEUMONIA, UNSPECIFIED ORGANISM Status: Acute (3) Asthma Code(s): J45.909 - UNSPECIFIED ASTHMA, UNCOMPLICATED Status: Acute - Plan * .
[2017-10-08 17:14] VITALS: TEMP 98.8
[2017-10-08 19:28] VITALS: BP 137/66
[2017-10-08] MEDS: Montelukast Sodium 10 mg Tablet PO SCH (19:59)
--- NOTE | 2017-10-09 02:03 | DIS ---
Of note, patient has 2 medical record numbers and would recommend merging records. BRIEF HISTORY: The patient is a pleasant 72-year-old female who was recently discharged from the [facility] on I believe 10/01 or 10/02 with pneumonia and sepsis. Patient was readmitted to the hospital for possible hypoxia. Upon talking with the patient's family, it was noted that the patient did not have continuous home oxygen at home which caused the patient to be short of breath and hypoxic. Elizabeth ent also during her previous hospitalization was treated for C. diff and pneumonia, sepsis. Patient initially was treated with IV antibiotics; however, I did check a procalcitonin level which was jackelin l. This was discussed with the patient's family. Also, patient's family and I had a discussion abou t code status and possible hospice given what it was mentioned in the records; however, the patient's family did not want the patient to go home with hospice. They wanted home health and did not want t he patient to be a DNR. The patient initially was treated with few days of IV antibiotics for possib le pneumonia; however, after the procalcitonin coming back to normal, patient's antibiotics were disc ontinued. She was started back on her medications at home. There was a C. diff that was checked dur ing previous hospitalization and the patient was put on of vancomycin orally. Patient's antigen actu ally was positive; however, the toxin was negative. Patient was having some soft stools which most l ikely contributed to Reglan, which the dose I have changed. HOME MEDICATIONS: Albuterol 2 puffs q.4 hours p.r.n., vancomycin 125 q.i.d. for 4 more days, Florast or 250 mg daily, Singulair mg q.p.m., Protonix 40 mg daily, lisinopril 10 mg daily, losartan 10 mg daily p.r.n., prednisone 20 mg daily for 5 days, metformin 500 mg daily, metoclopramide 5 mg p.o. t.i.d., ipratropium q.4 hours, Cardizem 30 mg p.o. at bedtime: PHYSICAL EXAMINATION: VITAL SIGNS: As of the following, temperature of 98.5, 94 heart rate, respirations are 18, 97% on 2 liters, blood pressure 121/77. GENERAL: She is awake, alert, and oriented x3. CARDIOVASCULAR: S1, S2 present. No murmurs, rubs or gallops. LUNGS: Mild expiratory wheezing, otherwise does not appear in any distress. ABDOMEN: Soft, nontender. Bowel sounds are present x2. EXTREMITIES: No edema. DISCHARGE INSTRUCTIONS: Patient will be discharged home. She will follow up with PCP and Pulmonolog y as needed. DISCHARGE DIAGNOSES: As of the followin. Acute hypoxic respiratory failure. 2. Clostridium difficile positive antigen. 3. Chronic obstructive pulmonary disease. 4. Essential hypertension. 5. Diabetes. Patient again will be discharged to rehabilitation. Follow up with PCP as needed. All of this was d iscussed with the patient's niece, Candice.
[2017-10-09] MEDS ORDERED: metFORMIN 500 MG TAB PO SCH (08:00)
== END 2017-10-08 20:10 | DRG 189 ==
LOC: ERS 19:54 → ERHOLD 22:45 → 2SE 10-03 04:07 → OBSVTOIN 10-03 07:49 → EDUNIT# 10-03 07:49 → T4-A 10-03 23:35
PROVIDERS: ADMIT Internal Medicine; ATTEND Internal Medicine
DX: J96.21 Acute and chronic respiratory failure with hypoxia (principal); J44.9 Chronic obstructive pulmonary disease, unspecified; F79 Unspecified intellectual disabilities; I10 Essential (primary) hypertension; E11.9 Type 2 diabetes mellitus without complications; M41.9 Scoliosis, unspecified; Z99.81 Dependence on supplemental oxygen; Z86.19 Personal history of other infectious and parasitic diseases; Z79.84 Long term (current) use of oral hypoglycemic drugs; Z79.52 Long term (current) use of systemic steroids
CPT/HCPCS: 36415; 71275; 80048; 80053; 81003; 82805; 83605; 84145; 85025; 87040; 93005; 93010; 94640; 94664; 96365; 96366; 96367; A4216; G8978-GP-CL; G8979-GP-CJ; G8987-GO-CM; G8988-GO-CJ; G8996-GN-CJ; G8997-GN-CJ; J0360; J0456; J0696; J1956; J2543; J7050; J7506; J7644

== ENCOUNTER 2017-11-23 22:56 | Inpatient (IN) | payer MEDICARE, MEDICAID ==
[2017-11-24 01:32] LABS: CKMB 1.6 ng/mL (0-6.6); Troponin I Less than 0.010 ng/mL (< 0.028)
[2017-11-24] MEDS ORDERED: Ondansetron ODT 4 MG TAB SL PRN (01:48)
[2017-11-24] MEDS ORDERED: Ondansetron HCl/PF 4 MG/2 ML Vial IVP PRN ×2 (01:48→12:50)
[2017-11-24] MEDS: D5 1/2 NS w/20 mEq KCL 1,000 ML IV SCH ×2 (02:09→11:55)
--- NOTE | 2017-11-24 10:12 | CON ---
DATE OF CONSULTATION: 11/23/2017 CHIEF COMPLAINT: Proximal intestinal obstruction. HISTORY OF PRESENT ILLNESS: This is a 72-year-old female, admitted overnight with vomiting. Ms. Dennis casiano has a history of chronic intellectual disability associated with severe scoliosis and end-stage CO PD. Previously, has been on home hospice for what I assume as is her COPD. There is a sister ramana isidro at the bedside to assist in the history today, but she is a poor historian as well. I asked if the patient has been vomiting since admission early this morning, she is unsure. CT scan shows question of malrotation versus internal hernia of the duodenum causing a gastric outlet obstruction. The pat iecam does have a history of chronic gastroparesis. Last upper endoscopy was approximately a year ago by Dr. Gustafson, which was within normal limits. Barium swallow study was done at the same time, whic h showed gastroparesis, but the contrast never left his stomach, so it was difficult to evaluate the duodenum for any kind of malrotation, and CT scan, 01/27/2017, she was also found to have similar fin dings of a volvulus of the proximal small intestine and possible internal hernia. PAST MEDICAL HISTORY: End-stage COPD, questionable hospice, and chronic intellectual disability. PAST SURGICAL HISTORY: Unsure. ALLERGIES: No known drug allergies. MEDICINES: See list. PHYSICAL EXAMINATION: Today, VITAL SIGNS: Blood pressure is 189/86, her pulse is 88, respirations 22. HEENT: Sclerae are anicteric. Oropharynx clear. NECK: No lymphadenopathy. CHEST: Coarse breath sounds. HEART: Regular rate. ABDOMEN: Very distended in the epigastric area consistent with her chronic gastroparesis. No guardi ng or rebound. No abdominal inguinal hernias or ischemia or edema to extremity. There are no signif icant incisions on her abdomen. LABORATORY DATA: White blood cell count was 10 last night with hemoglobin of 13. No bandemia. Sodi um 142, potassium 3.6, creatinine 0.8. CT scan results as above. ASSESSMENT: 1. 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 2. End-stage chronic obstructive pulmonary disease, question on hospice. PLAN: No plans for any surgical intervention. She would not survive. If anything, I would recommen d GI to see her. We could further evaluate by putting NG and doing a small bowel follow-through. Ho wever, it looks like that was done back in 2017 for similar workup as well as a scope was done back t that was normal. If there is concern for this being more of an acute volvulus event that would b e the next step. However, given her chronic intellectual disability, deconditioning, and COPD, it is unlikely she would tolerate any sort of invasive operative procedures.
--- NOTE | 2017-11-24 12:11 | CON ---
DATE OF CONSULTATION: 11/24/2017 REASON FOR CONSULTATION: Small bowel volvulus and history of Clostridium difficile. HISTORY OF PRESENT ILLNESS: Jacqui Camp is a 72-year-old woman with a history of intellectual disab ility and severe kyphoscoliosis essentially immobile. She does not provide any meaningful history or communicate meaningfully with me. She does have a niece and nephew from whom I can get some history . Otherwise, history is obtained from the chart. She has been seen by my colleague, Dr. George Gustafson in the past. She has had some intermittent hospitalizations with nausea and vomiting. Dr. Gustavo lagos performed an EGD in 10/2016 which was normal. Imaging at that time had suggested gastric outle t obstruction. She had had a small bowel through and the contrast really did not get to the jejunum; however, her symptoms all resolved. Given the normal EGD, she was diagnosed with gastroparesis and it appears was put on Reglan for some time. The patient has actually followed up since then and had a normal colonoscopy with Dr. Gustafson in July 2017. Per report, she has been treated for C. difficile infection within the past few months. Evidently for the past couple of days, the patient has had some vomiting of clear emesis this prompte d her presentation. When asked about her bowel movements, the family reports that there has not been any concern for diarrhea. They are not sure when her last bowel movement, but they think it was nor mal. The patient has some abdominal distention and ongoing nausea and that is what prompted her pres entation, a CT scan of the abdomen and pelvis was remarkable for marked gastric distention and volvul us of the proximal small bowel. This had not been as clearly demonstrated on prior imaging. Dr. Casa mckeon has evaluated the patient and recommended nasogastric tube. She is also felt to be a poor surgi michael candidate. The patient has refused a nasogastric tube. PAST MEDICAL HISTORY: Severe kyphoscoliosis; possible COPD; intellectual disability; aphasia; normal esophagogastroduodenoscopy, 10/2016; normal colonoscopy, 07/2017; prior diagnosis of gastroparesis; cholecystectomy; chronic renal insufficiency; history of C. difficile infection, previously treated. SOCIAL HISTORY: The patient lives with her sister. No smoking, alcohol, or drug use. FAMILY HISTORY: Noncontributory. ALLERGIES: No known drug allergies. MEDICATIONS: Per emergency room documentation. OUTPATIENT MEDICATIONS: Include docusate 100 mg, metoclopramide 10 mg unknown frequency, Protonix 40 mg and MiraLax 17. PHYSICAL EXAMINATION: VITAL SIGNS: Temperature 99.1, pulse 88, blood pressure 189/86, 96% oxygen saturation on room air. GENERAL: A 72-year-old -[place] woman lying in bed comfortably. She has severe kyphoscolios is. SKIN: No jaundice, no rashes were palpable. EYES: No scleral icterus. Extraocular movements intact. ENT: Mucous membranes moist, no oral lesions. LYMPH: No submandibular, supraclavicular lymphadenopathy. THYROID: Nontender to palpation. HEART: Regular rate and rhythm. LUNGS: Coarse breath sounds bilaterally, no respiratory distress, no wheezing. ABDOMEN: Distended in the epigastrium. There is tympany to percussion. Bowel sounds are hypoactive throughout, but there is no guarding or rebound tenderness. EXTREMITIES: No peripheral edema. VESSELS: Radial pulses 2+ bilaterally. LABORATORY STUDIES: WBC 10.7, hemoglobin 13.5, hematocrit 43.4, platelets 264. Sodium 142, potassiu m 3.6, BUN 8, creatinine 0.80. Lactic acid 1.4, calcium 10.7. LFTs all normal with alkaline phospha tase 114, AST 34, ALT 28, total bilirubin 0.5, lipase is 82. Troponins negative. CK only 60. IMAGING STUDIES: CT of the abdomen and pelvis from last night demonstrates volvulus of the proximal small bowel mesentery, including the second, third, and fourth portion of the duodenum. The proximal small bowel is on the right-sided romelia-abdomen causing obstruction of the stomach and first portion of the duodenum. The superior mesenteric artery and vein surround each other. ASSESSMENT AND PLAN: 1. Proximal small bowel volvulus. 2. Gastric outlet obstruction, secondary to small bowel volvulus. 3. Nausea and vomiting. 4. Possible gastroparesis. The patient's CT findings do appear consistent with proximal small bowel volvulus causing gastric out let obstruction. This is undoubtedly the cause for her presenting symptoms. It is unclear how acute this process or if it may have been a recurrent process, prompting similar presentations over the pa st couple of years. I do suspect that this was at least in some degree responsible for prior present ations, and she may not have actual gastroparesis. My suspicion for any upper GI mucosal based proce ss is low, particularly with her having had a normal EGD last year on a similar presentation. I do n ot think there is any role for endoscopic investigation in this case. I do note a surgical opinion t hat she is not a great surgical candidate. For now, plan will be conservative expectant management. I agree with plan for nasogastric tube, though the patient has been refusing this. I again discusse d with her and with her family the necessity of gastric decompression and they are still considering it. History of C. difficile infection, this was evidently treated in recent months. The patient's family is unaware of any diarrhea complaint and the patient is not really helpful with her history in this regard. I do see that stool studies have been ordered including C. difficile, so follow up with the results on that. If the C. difficile stool testing is positive, then given her n.p.o. status, I woul d treat with IV metronidazole 500 mg q.8 hours to start. Once she is able to take p.o. again, I woul d transition to oral vancomycin 250 mg four times daily for a 2 week course, but let see what the sto ol studies show. Thank you for the consultation. Please call any time with questions or concerns.
[2017-11-24] MEDS ORDERED: Acetaminophen 325 MG TAB PO PRN (12:50)
[2017-11-24] MEDS ORDERED: hydrALAZINE 20 MG/ML VIAL SLOW IVP PRN (13:10)
--- NOTE | 2017-11-24 13:28 | HP ---
PRIMARY CARE PROVIDER: Ami Avelar M.D. CHIEF COMPLAINT: Abdominal pain and vomiting. HISTORY OF PRESENT ILLNESS: Ms. Camp is a pleasant 72-year-old lady who was seen at [facility] on 11/24/2017. Please note that patient is able to provide only minimal history. Her sister by the bedside. She is also unable to provide any significant history. Collateral histo ry was obtained from review of medical records as well as discussion with the emergency room physiclaurent n. Ms. Camp reportedly started having vomiting earlier today. She also reports having pain across her mid abdomen, but is unable to characterize it further. She denies any chest pain. She also reports having diarrhea last night. REVIEW OF SYSTEMS: All other systems reviewed and found to be negative. PAST MEDICAL HISTORY: Scoliosis, gastroparesis and asthma. PAST SURGICAL HISTORY: Cholecystectomy and upper endoscopy. PSYCHIATRIC HISTORY: Mild to moderate intellectual disability. SOCIAL HISTORY: Patient lives at home with her sister. No history of tobacco use, alcohol use or re creational drug use. FAMILY HISTORY: No family history of premature coronary artery disease. ALLERGIES: No known drug allergies. CURRENT MEDICATIONS: Symbicort 80/4.5 two puffs 2 times a day, Cardizem 30 mg daily, Reglan 10 mg wi th meals and at bedtime, Singulair 10 mg every evening, Protonix 40 mg daily, lisinopril 10 mg daily. PHYSICAL EXAMINATION: GENERAL: On examination, Ms. Camp is awake and alert, not in acute distress. VITAL SIGNS: Blood pressure is 155/83, pulse 89, respiratory rate 16, oxygen saturation 98% on room air, temperature is 99.2 degrees Fahrenheit. EYES: No scleral icterus. No conjunctival pallor. ENT: Moist mucosal membranes, no oropharyngeal erythema or exudates. NECK: Supple, nontender. Trachea is midline. RESPIRATORY: Accessory muscles of breathing are not active. Chest wall movements are symmetric bila terally. LUNGS: Clear to auscultation without wheeze, rhonchi or crepitations. CARDIOVASCULAR: S1 and S2 are heard, regular. Peripheral pulses are palpable. No carotid bruit, no pericardial rub. ABDOMEN: Distended, mild tenderness over the mid abdomen, no guarding or rigidity, hypoactive bowel sounds. SKIN: No rashes or subcutaneous nodules. LYMPHATIC: No cervical lymphadenopathy. NEUROLOGIC: Cranial nerves II-XII intact. PSYCHIATRIC: Normal mood, normal affect, patient is oriented to person, not to place or time. MUSCULOSKELETAL: Severe scoliosis. DATABASE: Ms. Camp labs and investigations were reviewed. I reviewed her electrocardiogram, which shows sinus tachycardia, no ST changes to suggest an acute coronary syndrome. I also reviewed CT sca n of her abdomen and pelvis, which shows volvulus of the proximal small bowel mesentery. She has nor mal lactate, normal troponin I, normal white count, normal hemoglobin, normal platelet count, normal sodium, normal potassium, normal creatinine and unremarkable LFTs. ASSESSMENT AND PLAN: Ms. Camp is a pleasant 72-year-old lady who was seen at [facility] on 11/24/2017. Her problem list includes: 1. Abdominal pain: Ms. Camp is presenting with abdominal pain, nausea, vomiting and diarrhea. CT scan of the abdomen and pelvis shows volvulus. She has refused a nasogastric tube placement. We jeni l await General Surgery and Gastroenterology Services consult. 2. Diarrhea: Stool samples have been sent to rule out infection. We will follow up on the cultures . 3. Asthma: Appears to be stable. 4. Hypertension: We will add p.r.n. IV hydralazine since patient will be n.p.o. Many thanks for allowing me to participate in your patient's care. Please feel free to contact me wi th any questions or concerns. LEVEL OF RISK: High. LEVEL OF COMPLEXITY: High.
[2017-11-24] MEDS: Sodium Chloride 0.9% 1,000 ML IV SCH (13:32)
[2017-11-24] MEDS: Acetaminophen 650 MG Suppository PR PRN ×2 (15:55→21:54)
[2017-11-25 03:16] LABS: Hemoglobin 14.5 g/dL (12.0-16.0); Mean Corpuscular HGB CONC 31.9 g/dL (32.0-36.0); Mean Corpuscular Hemoglobin 30.9 pg (27.0-31.0); Mean Corpuscular Volume 96.9 fL (78.0-98.0); Mean Platelet Volume 7.7 fL (7.4-10.4); Platelet Count 207 thou/uL (130-400); RBC Distribution Width 11.7 % (11.5-14.5)
[2017-11-25 03:22] LABS: Band 3 % (5-11); Lymphocytes 25 % (21-51); MDiff Complete? YES; Monocytes 9 % (0-10); Neutrophil 63 % (42-75); White Blood Cell (WBC) Count 5.8 thou/uL (4.8-10.8)
[2017-11-25 03:45] LABS: Anion Gap 18 mmol/L (10-20); BUN (Urea Nitrogen) 14 mg/dL (9.8-20.1); Calc. Creatinine Clearance 34 mL/min (70-130); Calcium 9.4 mg/dL (7.8-10.44); Carbon Dioxide 16 mmol/L (23-31); Chloride 106 mmol/L (98-107); Estimated GFR-MDRD 60; Glucose 185 mg/dL (83-110); Potassium 4.7 mmol/L (3.5-5.1); Sodium 135 mmol/L (136-145)
--- NOTE | 2017-11-25 04:07 | PDOC.EVN ---
Event Note - Event Note Event Note: paged by rn pt has developed difficulty breathing over night, cxr showing possible perforation, ct abdomen with similar findings, no official report back yet, discussed with Dr Luis and pt not likely to survive a surgical procedure , we will follow rec's from surgery family has been updated and they are discussing goals of care, at this point. pt had been in hospice care in the past and likely would be the better solution for the pt if any agressive procedure is needed.
[2017-11-25] MEDS: Sodium Chloride 0.9% 1,000 ML IV SCH ×2 (04:11→09:05)
[2017-11-25] MEDS: Piperacillin/Tazobactam 3.375 GM in Sodium Chloride 0.9% 100 ML IVPB SCH ×2 (05:09→11:47)
[2017-11-25 05:13] LABS: Actual Bicarbonate (HCO3a) 21.8 mEq/L (22-28); Base Excess (BEa) -10.1 mEq/L (-2.0 to +3.0); Calcium, Ionized 1.25 mmol/L (1.12-1.30); Carboxyhemoglobin (COHb) 1.2 gm% (0.0-3.0); O2 Tension (PaO2) 90.1 mmHg (> 70.0); Potassium - ABG Lab 4.96 mmol/L (3.70-5.30)
[2017-11-25] MEDS ORDERED: Sodium Chloride 0.9% 1,000 ML IV SCH (05:15)
[2017-11-25 05:32] LABS: pH, Arterial 7.07 (7.35-7.45)
[2017-11-25 05:33] LABS: CO2 Tension 77.8 mmHg (35.0-45.0); Puncture Site RRAD
[2017-11-25 06:15] VITALS: BP 147/72
--- NOTE | 2017-11-25 07:29 | PRG ---
DATE OF SERVICE: 11/25/2017 Ms. Camp clinical condition worsened overnight. A repeat CT scan shows significant amount of free a ir. She has been moved to the ICU. She is tachycardic, tachypneic on BiPAP. PHYSICAL EXAMINATION: VITAL SIGNS: Blood pressure is 100/51, pulse is 128, tachypneic at 30-39. ABDOMEN: Distended with peritoneal signs. Repeat CT scan shows significant upper abdominal free air. ASSESSMENT: History of gastric upper abdominal volvulus in a patient with end-stage chronic obstruct ronnie pulmonary disease, not a good candidate for surgery. Now has progressed to perforation and an ac [place] abdomen. PLAN: I discussed the scenario with the patient's sister, Katelyn, over the phone. Unfortunately, th ey are not able to come up here given lack of transportation. I discussed the significance of this p erforation as well as her likely if she underwent any kind of surgical procedure. Because of t he patient's baseline clinical status, I recommended palliative care and no further invasive procedur es, which she understood and agreed with. We also discussed do not resuscitate status and the patien t is not ready to make that call just yet.
[2017-11-25] MEDS ORDERED: ISOVUE-370 76%-LOCM 1 ML ONE (08:28)
[2017-11-25] MEDS ORDERED: Enoxaparin Sodium 40 MG/0.4 ML SYRINGE SC SCH (09:00)
[2017-11-25] MEDS ORDERED: Pantoprazole 40 MG VIAL IVP SCH (09:00)
--- NOTE | 2017-11-25 09:01 | CT ---
PRELIMINARY REPORT/[facility]/EMERGENCY AFTER HOURS PROCEDURE: EXAM: CT Abdomen and Pelvis With Intravenous Contrast EXAM DATE/TIME: 11/25/2017 3:29 AM CLINICAL HISTORY: 72 years old, female; Signs and symptoms; Other: Possible perforation TECHNIQUE: Axial computed tomography images of the abdomen and pelvis with intravenous contrast. Coronal reforma tted images were created and reviewed. COMPARISON: No relevant prior studies available. FINDINGS: Lower thorax: No acute findings. ABDOMEN: Liver: Normal. No mass. Gallbladder and bile ducts: Normal. No calcified stones. No ductal dilation. Pancreas: Normal. No ductal dilation. Spleen: Normal. No splenomegaly. Adrenals: Normal. No mass. Kidneys and ureters: There is a simple cyst in the left kidney. There is a simple cyst in the right k idney. Stomach and bowel: The colon is normal. The stomach is markedly distended and there is diffuse thicke lópez of the small bowel. Focus of air and fluid is seen within the first segment of the duodenum poss ibly representing duodenal ulcer with perforation. Appendix: A normal appendix is identified. PELVIS: Bladder: Unremarkable as visualized. Reproductive: The uterus is normal. ABDOMEN and PELVIS: Intraperitoneal space: There is large intra-abdominal free air consistent with bowel perforation. There is moderate abdominal pelvic ascites. Bones/joints: There is scoliosis of the spine. Soft tissues: Unremarkable. Vasculature: Normal. No abdominal aortic aneurysm. Lymph nodes: Normal. No enlarged lymph nodes. IMPRESSION: 1. Possible duodenal ulcer perforation with large abdominal free air. 2. Nonspecific diffuse small bowel wall thickening. 3. Moderate abdominal pelvic ascites. THIS REPORT CONTAINS FINDINGS THAT MAY BE CRITICAL TO PATIENT CARE. Duodenal ulcer and perforation fi ndings were verbally communicated via telephone conference with David Park at 4:34 AM CDT on . The findings were acknowledged and understood. Thank you for allowing us to participate in the care of your patient. Dictated and Authenticated by: Juan Angela MD 11/25/2017 4:35 AM Central Time ([place] & [place]) FINAL REPORT CT ABDOMEN WITH CONTRAST CT PELVIS WITH CONTRAST: COMPARISON: 11/23/17. FINDINGS: There is interval extensive pneumoperitoneum. Gastric distention is redemonstrated. Findings sugges tive of proximal small bowel volvulus are again noted. There is mucosal thickening and dilatation in volving proximal small bowel loops. Extensive free fluid in the abdomen and pelvis has also develope d. Findings may be on the basis of obstruction. Other etiologies as well as possible ischemic etiol ogies cannot be excluded, given the known volvulus. The preliminary report by [facility] also raises the po ssibility of a perforated duodenal ulcer which cannot be entirely excluded but is less favored. IMPRESSION: Interval development of pneumoperitoneum as well as extensive free fluid in the abdomen or pelvis. T here is small bowel wall thickening which has also developed since the prior examination. Proximal s mall valve mesenteric volvulus is suggested, though the degree of volvulus has significantly decrease d. Nevertheless, the possibility of an ischemic etiology for the interval development of small bowel wall thickening cannot be excluded. This report is in agreement with the preliminary report by [facility]. Results were discussed with Johnson, the patient's nurse, 11/25/17 at 7:48 a.m. CODE MICAH POS: RA
--- NOTE | 2017-11-25 09:35 | CON ---
DATE OF CONSULTATION: 11/25/2017 DATE OF SERVICE: Jacqui Camp is a 72-year-old female who has end-stage COPD, asthma, nonsmoker, severe kyphoscoliosis. She presented with abdominal pain. A CT of the abdomen showed marked abdomin al distention, volvulus and perforation. Dr. Luis, general surgeon, was consulted to see the cassie ent. Discussed with the sister regarding the grave situation that she would not survive the surgical intervention. They have now decided to make her a DNR. I personally spoke to the power of trademark attorney , the daughter, Anjali, who also agrees at this time. She is going to be a DNR. No chest compressions , no intubation, no surgery. Comfort care. In the process of calling Palliative Care. PAST MEDICAL HISTORY: Well outlined, includes chronic asthma, COPD, nonsmoker. She has seen Dr. Cassandra valdez in the past. She has been in and out of the hospital here several times, in fact was recently discharged 8 with a diagnosis of acute cardiorespiratory failure, C. difficile colitis, hypertension, and diabet es. CHRONIC MEDICATIONS FROM HOME: Protonix 40, Singulair, Reglan, Zestril 10, Cardizem 30, Symbicort. Since admission, she was started on Zosyn. TOBACCO: None. Alcohol: None. REVIEW OF SYSTEMS: Unremarkable. PHYSICAL EXAMINATION: GENERAL: She is on BiPAP. She is appropriate, answers and nods to questions. VITAL SIGNS: Pulse 125, sats 98%, blood pressure 100/51, respiration rate 18. CHEST: Chest revealed decreased breath sounds, no wheezing. CARDIAC: Normal S1, S2, no gallops. ABDOMEN: Distended. NEUROLOGIC: Awake. Severe kyphoscoliosis contraction. LABORATORY: White count 5000, H&H 14 and 48, platelet count is 207, 63 segs, 25 lymphocytes. PO2 wa s 90, pCO2 77.70 on a nonrebreather. BUN and creatinine are normal. CT abdomen and pelvis shows a perforation volvulus. X-RAY FINDINGS: Chest x-ray shows kyphoscoliosis and air in the abdomen. IMPRESSION: 1. Acute abdomen, perforated viscus. 2. Severe kyphoscoliosis. 3. Respiratory failure in a nonsmoker. As per the patient's discussion and family wishes, we made her a DNR. She is not a surgical candidat e. PLAN: We will consult Palliative Care. Comfort care. This is a consultation note, 45 minutes critical care time. I will notify Dr. Kevin.
--- NOTE | 2017-11-25 10:00 | RAD ---
ONE VIEW CHEST: COMPARISON: 09/24/17. HISTORY: Tachycardia. FINDINGS: Stable severe scoliosis of the spine with stable appearance of the cardiac silhouette and lung parenc hyma. There is evidence of pneumoperitoneum. IMPRESSION: Pneumoperitoneum. POS: RA
[2017-11-25 12:01] VITALS: BMI 20.2
--- NOTE | 2017-11-25 14:03 | PRG ---
DATE OF SERVICE: 11/25/2017 Since yesterday Ms. Camp decompensated overnight. She had a repeat CAT scan that showed free air in the upper abdomen. She has been seen by General Surgery and the ICU physicians. With her significa nt comorbidities and lung disease, the decision was made not to intervene surgically. PHYSICAL EXAMINATION: GENERAL: The patient is resting in bed. She is heavily sedated. VITAL SIGNS: Temperature 98.1, pulse 125, blood pressure 133/72. ABDOMEN: Tender, mildly distended. Bowel sounds are quiescent. LUNGS: Clear. CARDIAC: Heart has sinus tachycardia. LABORATORY STUDIES: White count 5.8, hemoglobin 14, platelet count 207, pH 7.07, pCO2 77, pO2 90. S odium 135, potassium 4.7, bicarbonate 16, chloride 106, anion gap is 13 presently. ASSESSMENT: Persistent acute nausea, vomiting, concern for possible volvulus or inflammatory change in the duodenum with obstructive features. She was treated conservatively with PPIs and NG tube deco mpression as she is a very poor surgical candidate for surgery. There now are signs of clinical deco mpensation and signs of perforation on CAT scan. General Surgery has reevaluated her and did not fee l that she was a surgical candidate. She is being treated presently with antibiotics with no plans f or acute intervention. At this time, really nothing further to offer and from a GI standpoint, she i s not a candidate for endoscopy with the free air in the abdomen signs and signs of an acute perforat ion. We will follow from a distance. If I can be of further assistance, please do not hesitate to c ontact me.
[2017-11-25 16:51] VITALS: TEMP 99.1
--- NOTE | 2017-11-25 17:57 | PDOC.PN ---
- Subjective Encounter Start Date: 11/25/17 Encounter Start Time: 09:20 Chart reviewed and overnight events noted. Pt seen for followup re: bowel perforation. On BiPAP, answering questions, denies chest pain or shortness of breath. Reports abdo pain. Denies fevers or chills. - Objective Resuscitation Status: Resuscitation Status DNR:Do Not Resuscitate MAR Reviewed: Yes Vital Signs & Weight: Vital Signs (12 hours) Temp Pulse Pulse Ox 11/25/17 16:00 99.1 F 91 L 11/25/17 11:00 98.1 F 11/25/17 08:00 98 11/25/17 07:55 125 H 11/25/17 07:54 98 11/25/17 07:00 98 F Weight Admit Weight 97 lb Weight 97 lb 0.054 oz Most Recent Monitor Data Heart Rate from ECG 110 NIBP 101/45 NIBP BP-Mean 57 Respiration from ECG 25 SpO2 91 I&O: 11/24/17 11/25/17 11/26/17 06:59 06:59 06:59 Intake Total 400 2052 Output Total 0 100 Balance 400 3 -100 Result Diagrams: 11/25/17 02:54 11/25/17 02:54 EKG Reviewed by me: Yes (Tele: NSR) Phys Exam - Physical Examination Constitutional: NAD HEENT: moist MMs Neck: supple Respiratory: clear to auscultation bilateral Cardiovascular: RRR Gastrointestinal: positive bowel sounds diffuse abdo tenderness+ severe scoliosis Neurological: moves all 4 limbs Psychiatric: normal affect Dx/Plan (1) Bowel perforation Code(s): K63.1 - PERFORATION OF INTESTINE (NONTRAUMATIC) Status: Acute Comment: secondary to bowel obstruction. Pt not a candidate for surgery due to significant risk of mortality. Updated family. (2) Protein-calorie malnutrition, moderate Code(s): E44.0 - MODERATE PROTEIN-CALORIE MALNUTRITION Status: Chronic (3) Scoliosis Status: Chronic - Plan * . Review of Systems - Review of Systems Respiratory: negative: Cough, Shortness of Breath, SOB with Excertion, Pleuritic Pain, Wheezing Gastrointestinal: Abdominal Pain. negative: Nausea, Vomiting, Diarrhea, Constipation - Medications/Allergies Allergies/Adverse Reactions: Allergies Allergy/AdvReac Type Severity Reaction Status Date / Time No Known Allergies Allergy Verified 11/24/17 02:19 Medications: Current Medications Acetaminophen (Tylenol) 650 mg AR Q4H PRN PRN Reason: Headache/Fever or Pain Last Admin: 11/24/17 21:54 Dose: 650 mg Acetaminophen (Tylenol) 650 mg PO Q4H PRN PRN Reason: Headache/Fever or Pain Hydralazine HCl (Apresoline) 10 mg SLOW IVP Q6H PRN PRN Reason: SBP Greater Than 170 Sodium Chloride (Normal Saline 0.9%) 1,000 mls @ 50 mls/hr IV .Q20H SETH Last Admin: 11/25/17 09:05 Dose: 1,000 mls Piperacillin Sod/Tazobactam (Sod 2.25 gm/ Sodium Chloride) 100 mls @ 200 mls/ hr IVPB Q6HR SETH Morphine Sulfate (Morphine) 2 mg SLOW IVP Q6H PRN PRN Reason: Moderate to Severe Pain (4-10) Last Admin: 11/25/17 14:58 Dose: 2 mg Ondansetron HCl (Zofran) 4 mg IVP Q6H PRN PRN Reason: Nausea/Vomiting Last Admin: 11/24/17 15:55 Dose: 4 mg Pantoprazole Sodium (Protonix) 40 mg IVP DAILY [facility] Last Admin: 11/25/17 09:05 Dose: 40 mg
[2017-11-25] MEDS ORDERED: Piperacillin/Tazobactam 2.25 GM in Sodium Chloride 0.9% 100 ML IVPB SCH (18:00)
--- NOTE | 2017-11-26 02:17 | DIS ---
DATE OF ADMISSION: 11/24/2017 DATE OF : 11/25/2017 SUMMARY PRIMARY CARE PHYSICIAN: Ami Avelar MD DISCHARGE DIAGNOSES: 1. Bowel perforation. 2. Bowel obstruction. 3. Volvulus. CONSULTATIONS DURING THIS HOSPITALIZATION: General surgery, Dr. Luis; Gastroenterology, Dr. Mancera; and Pulmonology, Dr. Villagran. HOSPITAL COURSE: Ms. Camp was a pleasant 72-year-old lady, who was admitted to [facility] for probable bowel obstruction secondary to volvulus. She was seen by General Surgery and Gastroenterology services. It was felt that the risk of surgery was significantly high in terms of mortality. Therefore, conservative management was elected. During the night of 11/24/2017, Ms. Malini walter became hypoxic. She had CT scan of the abdomen and pelvis, which showed possible duodenal ulcer perforation with large abdominal free air. After discussions between the medical team and the patie nt's family, the patient's family made her DNR. She was a high-risk candidate for surgery, therefore they did not want surgery. She was seen by Palliative Care and on the evening of 11/25/2017. Many thanks for allowing me to participate in your patient's care. Please feel free to contact me wi th any questions or concerns.
--- NOTE | 2017-11-30 11:32 | EKG ---
Test Reason : Blood Pressure : / mmHG Vent. Rate : 112 BPM Atrial Rate : 112 BPM P-R Int : 142 ms QRS Dur : 068 ms QT Int : 312 ms P-R-T Axes : 072 057 079 degrees QTc Int : 425 ms Poor data quality, interpretation may be adversely affected Sinus tachycardia Right atrial enlargement Left ventricular hypertrophy with repolarization abnormality Abnormal ECG Confirmed by EBONY GAR, LUDMILA ([id number]), fan mail editor RYNE BENTON ([id number]) on 11/30/2017 11:32:09 AM Referred By: Confirmed By:LUDMILA BECK MD
--- NOTE | 2017-12-01 14:23 | EKG ---
Test Reason : STAT Blood Pressure : / mmHG Vent. Rate : 129 BPM Atrial Rate : 129 BPM P-R Int : 126 ms QRS Dur : 056 ms QT Int : 304 ms P-R-T Axes : 075 065 110 degrees QTc Int : 445 ms Sinus tachycardia Right atrial enlargement Left ventricular hypertrophy with repolarization abnormality Marked ST abnormality, possible anterior subendocardial injury Abnormal ECG When compared with ECG of 22-SEP-2017 14:01, T wave inversion no longer evident in Inferior leads Confirmed by DICK BEGUM (2) on 12/01/2017 2:23:41 PM Referred By: NORBERTO Confirmed By:DICK BEGUM
== END 2017-11-25 17:11 | disposition expired | DRG 388 ==
LOC: ERS 22:56 → 2NO 11-24 00:20 → SURG A 11-24 11:43 → CCU 11-25 03:51
PROVIDERS: ADMIT Hospitalist; ATTEND Hospitalist
DX: K56.2 Volvulus (principal); K26.5 Chronic or unspecified duodenal ulcer with perforation; J96.91 Respiratory failure, unspecified with hypoxia; K63.1 Perforation of intestine (nontraumatic); K31.5 Obstruction of duodenum; E44.0 Moderate protein-calorie malnutrition; M41.9 Scoliosis, unspecified; I10 Essential (primary) hypertension; J44.9 Chronic obstructive pulmonary disease, unspecified; R09.02 Hypoxemia; Z66 Do not resuscitate; Z68.20 Body mass index [BMI] 20.0-20.9, adult; F70 Mild intellectual disabilities; Z90.49 Acquired absence of other specified parts of digestive tract; Z79.51 Long term (current) use of inhaled steroids; R00.0 Tachycardia, unspecified; R10.0 Acute abdomen; Z51.5 Encounter for palliative care; E11.43 Type 2 diabetes mellitus with diabetic autonomic (poly)neuropathy; K31.84 Gastroparesis
CPT/HCPCS: 36415; 71045; 74177; 82550; 82553; 82805; 83605; 83630; 84484; 87045; 87046; 87324; 87328; 87329; 87449; 87899; 93005; 93010; 94660; 94760; C9113; J2270; J2405; J2543; J7050